=== PATIENT | female | born 1980 | race Two or more races ===

== ENCOUNTER 2017-12-25 11:56 | Emergency (ER) | payer SELFPAY ==
[~2017-12-25] VITALS: Ht 160 cm; Wt 71.2 kg
[2017-12-25] MEDS ORDERED: SODIUM CHLORIDE 0.9% 1000ML 1,000 ML IV STA (12:29)
[2017-12-25] MEDS ORDERED: DIATRIZOATE MEGL/DIATRIZOA SOD 30 ML BTL PO ONE (12:41)
[2017-12-25 13:05] LABS: BASOPHILS % 0.1 % (0.0-1.0); EOSINOPHILS % 0.1 % (0.0-6.0); HEMATOCRIT 33.5 % (34.2-44.1); HEMOGLOBIN 11.5 g/dL (12.0-16.0); LYMPHOCYTES # (AUTO) 1.4 (1.0-3.2); LYMPHOCYTES % 18.6 % (18.0-39.1); MEAN CORPUSCULAR HEMOGLOBIN 30.3 pg (28-32); MEAN CORPUSCULAR HGB CONC 34.3 g/dL (31-35); MEAN CORPUSCULAR VOLUME 88.4 fL (81-99); MONOCYTES # (AUTO) 0.5 (0.2-0.8); MONOCYTES % 6.6 % (4.4-11.3); NEUTROPHILS # (AUTO) 5.4 (2.1-6.9); NEUTROPHILS % 74.2 % (38.7-80.0); PLATELET COUNT 204 x10e3/uL (140-360); RED BLOOD COUNT 3.79 x10e6/uL (3.6-5.1); RED CELL DISTRIBUTION WIDTH 12.2 % (11.7-14.4)
[2017-12-25 13:15] LABS: INR 1.13; PROTHROMBIN TIME 13.6 seconds (11.9-14.5)
[2017-12-25 13:16] LABS: PARTIAL THROMBOPLASTIN TIME 29.9 seconds (23.8-35.5)
[2017-12-25 13:29] LABS: ALANINE AMINOTRANSFERASE 21 IU/L (0-55); ALBUMIN 3.2 g/dL (3.5-5.0); ALBUMIN/GLOBULIN RATIO 0.7 (0.8-2.0); ALKALINE PHOSPHATASE 68 IU/L (40-150); AMYLASE 40 U/L (25-125); ANION GAP 12.5 mmol/L (8-16); BLOOD UREA NITROGEN 7 mg/dL (7-26); BUN/CREATININE RATIO 9 (6-25); CALCIUM 9.1 mg/dL (8.4-10.2); CARBON DIOXIDE 25 mmol/L (22-29); CHLORIDE 103 mmol/L (98-107); EST GLOMERULAR FILTRATION RATE > 60 ML/MIN (60-); GLUCOSE 110 mg/dL (74-118); LIPASE 14 U/L (8-78); POTASSIUM 3.5 mmol/L (3.5-5.1); SODIUM 137 mmol/L (136-145)
[2017-12-25 13:52] LABS: BILIRUBIN,URINE NEGATIVE (NEGATIVE); CLARITY,URINE CLEAR (CLEAR); COLOR,URINE YELLOW (YELLOW); KETONES,URINE TRACE (NEGATIVE); LEUKOCYTE ESTERASE ,URINE NEGATIVE (NEGATIVE); NITRITE,URINE NEGATIVE (NEGATIVE); PROTEIN,URINE DIPSTICK NEGATIVE (NEGATIVE); URINE UROBILINOGEN 0.2 mg/dL (0.2 - 1)
[2017-12-25 14:04] LABS: EPITHELIAL CELLS,URINE RARE /LPF; RBC,URINE 0-5 /HPF (0-5); WBC,URINE (MAN) 0-5 /HPF (0-5)
[2017-12-25] MEDS ORDERED: SODIUM CHLORIDE 0.9% 50ML 50 ML ONE (14:38)
[2017-12-25] MEDS ORDERED: IOPAMIDOL 370 MG/ML 200 ML INFUS..BTL INJ ONE (14:38)
--- NOTE | 2017-12-25 15:02 | Diagnostic Imaging Report ---
This report includes an Addendum and supersedes previous reports for this exam. PROCEDURE: CT ABDOMEN AND PELVIS WITH CONTRAST TECHNIQUE: The abdomen and pelvis were scanned utilizing a multidetector helical scanner from the diaphragm to the lesser trochanter after the IV administration of 100 cc of Isovue 370 and the oral administration of 900 mL of Gastroview. Coronal and sagittal multiplanar reformations were obtained. COMPARISON: None. INDICATIONS: ABDOMEN PAIN FINDINGS: LOWER THORAX: Normal. HEPATOBILIARY: No focal hepatic lesions. No biliary ductal dilatation. The gallbladder is absent. SPLEEN: No splenomegaly. PANCREAS: There is fatty atrophy of the pancreatic head and uncinate process. The distal pancreatic body and tail appear unremarkable. ADRENALS: No adrenal nodules. KIDNEYS/URETERS: No hydronephrosis, stones, or solid mass lesions. PELVIC ORGANS/BLADDER: Metallic densities in the region of the cervix likely represent fiducial markers. A focal calcification in the uterine fundus may be related to small degenerating fibroid. Mild circumferential wall thickening of the bladder. PERITONEUM / RETROPERITONEUM: No free air or fluid. Mild peritoneal thickening in the low abdomen. LYMPH NODES: No lymphadenopathy. VESSELS: Unremarkable. GI TRACT: There is mild wall thickening of the distal sigmoid colon and rectum. Mild wall thickening is also seen in several loops of distal ileum. There is associated edema of the small bowel mesentery. A small amount of fluid is seen in the mesentery. There are a few scattered sigmoid diverticula. No evidence of bowel obstruction. The appendix is not clearly visualized. BONES AND SOFT TISSUES: Osteopenia in the sacral vertebral bodies is likely related to radiation change. IMPRESSION: Bowel wall thickening of the distal sigmoid colon and rectum, as well as several loops of distal ileum. There is edema within the small bowel mesentery and reactive peritoneal thickening in the low abdomen. 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 Other possibilities, such as inflammatory bowel disease or infectious enteritis, are considered less likely. Diffuse circumferential bladder wall thickening, also likely related to radiation change. Dictated by: Froylan Ludwig M.D. on 12/25/2017 at 15:04 Electronically approved by: Froylan Ludwig M.D. on 12/25/2017 at 15:04 ADDENDUM: The appendix is diminutive and does not appear to be the source of the inflammatory process. Dictated by: Froylan Ludwig M.D. on 12/25/2017 at 15:26 Electronically approved by: Froylan Ludwig M.D. on 12/25/2017 at 15:26
[2017-12-25 15:46] VITALS: BP 109/73
== END 2017-12-25 15:55 | disposition home or self-care (01) ==
LOC: ER 11:56
CPT/HCPCS: 36415; 74177; 80053; 81001; 82150; 83690; 84702; 85025; 85610; 85730; 99284; J7030; Q9967

== ENCOUNTER → 2018-08-09 | Emergency (ER) | payer MEDICARE ==
--- OUTSIDE RECORDS SUMMARY | 2018-08-09 16:55 | XMS REPORT | Clinical Summary ---
Author Author [facility] Organization [facility] Address Unknown Phone Unavailable Care Team Providers Care Associate Professor Of Art History Name Role Phone Rody Hairston MD PCP Allergies No Known Allergies Medications End Date Status Medication Sig Dispensed Refills Start Date Active esomeprazole (NEXIUM) 40 Take 40 mg by 0 mg delayed release mouth as capsule needed. Active omeprazole (PRILOSEC) 20 Take 1 30 capsule 0 mg delayed release capsule by 5 capsuleIndications: mouth daily. Reflux Active ergocalciferol (VITAMIN Take 1 12 capsule 0 D2) 50,000 unit capsule by 8 capsuleIndications: mouth weekly. Vitamin D deficiency Active conjugated estrogens Insert 0.5 g 30 g 12 (PREMARIN) 0.625 mg/gram vaginally 8 vaginal creamIndications: DAILY (21 Vaginal atrophy days on and 7 days off). 01/05/2018 ondansetron (ZOFRAN) 4 mg Take 1 tablet 20 tablet 0 tabletIndications: by mouth 8 Malignant neoplasm of every 8 hours cervix, unspecified site, as needed for Abdominal pain, up to 7 days generalized for Nausea. 04/05/2018 metroNIDAZOLE (FLAGYL) Take 1 tablet 20 tablet 0 500 mg tabletIndications: by mouth 2 8 Lower abdominal pain times daily for 10 days. 04/05/2018 ciprofloxacin HCl (CIPRO) Take 1 tablet 20 tablet 0 500 mg tabletIndications: by mouth 2 8 Lower abdominal pain times daily for 10 days. 04/24/2018 Discontinued ibuprofen (MOTRIN) 800 mg Take 1 tablet 30 tablet 0 tabletIndications: Lower by mouth 8 abdominal pain every 8 hours as needed for Pain Take with food. 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 - squamous cell carcinoma in situ cannot rule out invasion - 12/20/11 Biopsies taken 01/15/12 and patient to be seen 01/17/12 at [facility] by and for chemoradiation- Cancer of cervix 01/15/2012 Encounters Care Team Description Date Type Specialty Cameron Perea MD Abdominal pain, generalized (Primary Dx) 04/24/2018 Office Visit Family Practice Kay Umanzor NP Parathyroid abnormality (Primary Dx) 04/24/2018 Orders Only Oncology Kay Umanzor NP Results 04/24/2018 Telephone Oncology Claudio Parry MD Thyroid nodule (Primary Dx) 04/24/2018 E-Consult Endocrinology Meenu Zaragoza RN 04/24/2018 Clinical Case Social Work Mgt Alessandra Rodriguez NP Thyroid nodule (Primary Dx) 04/17/2018 Orders Only Oncology Mary Saleh MD 04/10/2018 Hospital Radiology Encounter Rody Hairston MD 04/10/2018 Hospital Lab Encounter Cierra Mcguire MD Lower abdominal pain (Primary Dx) 03/26/2018 Same Day [facility] Alessandra Rodriguez NP Thyroid nodule (Primary Dx) 03/26/2018 Orders Only Oncology Claudio Parry MD 03/20/2018 E-Consult Endocrinology Mary Saleh MD Malignant neoplasm of cervix, unspecified site (Primary Dx); Vaginal atrophy 03/17/2018 Office Visit Oncology Alessandra Rodriguez, Medical Student Follow-up 03/17/2018 Telephone Oncology Elin Carias NP Well woman exam (Primary Dx); Hx of cervical cancer 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 Malignant neoplasm of cervix, unspecified site; Fatigue, unspecified type 01/23/2018 Ancillary Radiology Procedure Rody Hairston MD Hospital discharge follow-up (Primary Dx); Malignant neoplasm of cervix, unspecified site; Fatigue, unspecified type; Abdominal pain, generalized; Need for vaccination 12/29/2017 Office Visit Family Practice Niesha Price, KENDY Can Not Get Appointment 12/25/2017 Telephone Iveth Cheng RN 12/25/2017 Nurse Triage Rody Hairston MD Vitamin D deficiency (Primary Dx) 12/24/2017 Orders Only Family Practice Rody Hairston MD Thyroid disorder; Fatigue, unspecified type; Preventative health care 12/22/2017 Lab Appointment Lab Rody Hairston MD Fatigue, unspecified type (Primary Dx); Malignant neoplasm of cervix, unspecified site; Preventative health care; Thyroid disorder 12/18/2017 Office Visit Family Practice after 08/08/2017 Immunizations Name Dates Previously Given Next Due TDap (Tetanus Toxoid, 12/29/2017 (Deferred: Patient already had this Reduced Diphtheria Toxoid immunization - Patient to immunization record) And Acellular Pertussis, Absorbed) Family History Medical History Relation Name Comments Breast cancer Maternal Aunt Diabetes Mother Relation Name Status Comments Maternal Aunt Mother Social History Date Tobacco Use Types Packs/Day Years Used Former Smoker 0.3 5 Smokeless Tobacco: Former User Tobacco Cessation: Counseling Given: No Alcohol Use Drinks/Week oz/Week Comments No Sex Assigned at Date Recorded Not on file Industry Job Start Date Occupation Not on file Not on file Not on file Travel End Travel History Travel Start No recent travel history available. Last Filed Vital Signs Time Taken Vital Sign Reading 04/24/2018 8:44 AM CDT Blood Pressure 103/69 04/24/2018 8:44 AM CDT Pulse 62 04/24/2018 8:44 AM CDT Temperature 36.6 C (97.8 F) 04/24/2018 8:44 AM CDT Respiratory Rate 18 03/26/2018 3:44 PM CDT Oxygen Saturation 100% - Inhaled Oxygen - Concentration 04/24/2018 8:44 AM CDT Weight 70.5 kg (155 lb 6.4 oz) 04/24/2018 8:44 AM CDT Height 162 cm (5' 3.78") 04/24/2018 8:44 AM CDT Body Mass Index 26.86 Plan of Treatment Care Team Description Date Type Specialty Ref #: [id number] 09/16/2018 Office Visit Gastroenterology THYROID/NECK 09/21/2018 Ancillary Radiology Procedure Mary Saleh MD [address] [facility] [address] [place] [address] 6 mo fu w US results 10/20/2018 Office Visit Oncology Health Maintenance Due Date Last Done Comments IMM Influenza Seasonal 05/25/2018 Oct to October (>/=19 yrs) Cervical Cancer Scrn (3 02/10/2021 02/10/2018 Yrs) Procedures Comments Procedure Name Priority Date/Time Associated Diagnosis INTACT PTH Routine 04/28/2018 Parathyroid abnormality 9:03 AM CDT CALCIUM Routine 04/28/2018 Parathyroid abnormality 9:03 AM CDT U/S THYROID/NECK Routine 04/10/2018 Malignant neoplasm of 5:43 PM CDT cervix, unspecified site TOTAL T3 Routine 04/10/2018 Thyroid nodule 3:30 PM CDT FREE T4 Routine 04/10/2018 Thyroid nodule 3:30 PM CDT TSH Routine 04/10/2018 Thyroid nodule 3:30 PM CDT HPV HIGH-RISK Routine 02/10/2018 Well woman exam 2:47 PM CDT [facility] CYTOLOGY Routine 02/10/2018 12:00 AM CDT TUMORIMAGE PET/CT SKUL-T Routine 01/23/2018 Malignant neoplasm of 11:02 AM CDT cervix, unspecified site Fatigue, unspecified type GLUCOSE POC Routine 01/23/2018 9:20 AM CDT THYROID PEROXIDASE (TPO) Routine 12/22/2017 AB 10:43 AM CDT ANTITHYROGLOBULIN AB Routine 12/22/2017 10:43 AM CDT LIPID PROFILE Routine 12/22/2017 Preventative health care 10:43 AM CDT LIVER PROFILE Routine 12/22/2017 Preventative health care 10:43 AM CDT HEMOGLOBIN A1C Routine 12/22/2017 Preventative health care 10:43 AM CDT BASIC METABOLIC PANEL Routine 12/22/2017 Fatigue, unspecified type 10:43 AM CDT CBC/DIFF Routine 12/22/2017 Fatigue, unspecified type 10:43 AM CDT TSH Routine 12/22/2017 Fatigue, unspecified type 10:43 AM CDT Thyroid disorder VIT D, 25-HYDROXY Routine 12/22/2017 Fatigue, unspecified type 10:43 AM CDT FREE T4 Routine 12/22/2017 Thyroid disorder 10:43 AM CDT after 08/08/2017 Results * INTACT PTH (04/28/2018 9:03 AM CDT) Intact PTH 56.50 8.7 - 77.1 pg/mL BT MAIN-STATION 4 Specimen Blood Performing Organization Address City/State[facility] Number MISYS BT MAIN-STATION 4 * CALCIUM (04/28/2018 9:03 AM CDT) Calcium 10.1 8.6 - 10.3 mg/dL BT MAIN-STATION 1 Specimen Blood Performing Organization Address City/[facility] Phone Number MISYS BT MAIN-STATION 1 * U/S THYROID/NECK (04/10/2018 5:43 PM CDT) Addenda Addendum by aYzan Moncada MD on 04/13/2018 8:42 AM *Left thyroid nodule does not meet criteria for follow-up or FNA. However, this nodule likely corresponds toFDG avid nodule seen on prior PET/CT, consider follow-up in 6-12 months to document stability. Alternatively, FNA may be considered in light of FDG activity and history of cervical cancer. *Probable right parathyroid adenoma. Correlation with calcium and PTH levels to determine the need for scintigraphic imaging. Signed By: Yazan Moncada MD, 04/13/2018 8:42 AM Impressions Performed At IMPRESSION: [facility] *Left thyroid nodule does not meet criteria for follow-up or FNA. However, this nodule likely corresponds toFDG avid nodule seen on prior PET/CT, consider follow-up in 6-12 months to document stability. *Probable right parathyroid adenoma. Correlation with calcium and PTH levels to determine the need for scintigraphic imaging. REFERENCE: Sakshi FN, Kalani WD, Zeke EG, et al. ACR Thyroid Imaging, Reporting and Data System (TI-RADS): White Paper of the ACR TI-RADS Committee. J Am Katey Radiol. 2017; 14(5): 587?595. Signed By: Yazan Moncada MD, 04/10/2018 6:01 PM Narrative Performed At EXAM: US THYROID SMS DATE: 04/10/2018 5:43 PM INDICATION:incidental findings on pet scan ADDITIONAL INFORMATION: None. COMPARISON: PET/CT 01/23/2018 TECHNIQUE: Multiplanar grayscale and color Doppler ultrasound of the neck were obtained in the area of the thyroid. FINDINGS: Thyroid parenchyma: Mostly homogeneous. Right thyroid size: 4.4 x 1.3 x 1.5 Cm Left thyroid size: 4.5 x 1.1 x 1.7 cm Isthmus thickness: 0.3 cm Thyroid nodules: Identified. Nodule 1: Location: Left inferior pole Size: 0.7 x 1.3 x 0.6 cm Composition: Solid or almost completely solid (2 points). Echogenicity: Isoechoic (1 point). Shape: Wider than tall (0 points). Margins: Smooth (0 points). Echogenic foci: Absent (0 points). Other: None. ACR TI-RADS Score: TR3 - Mildly suspicious (total 3 points). -- ACR recommendation:=2.5 cm FNA;=1.5 cm f/u in 1, 3, and 5 years; <1.5 cm no f/u or FNA. Recommendations: No further follow-up required. These nodularity corresponds to the FDG avid nodules seen on the prior PET/CT. A hypoechoic structure posterior to the right mid border of the thyroid gland measuring 0.6 x 0.3 x 0.4 cm may represent a parathyroid adenoma. Cervical lymph nodes: Normal. Procedure Note Interface, Rad/Mammog In - 04/10/2018 6:06 PM CDT EXAM: US THYROID DATE: 04/10/2018 5:43 PM INDICATION: incidental findings on pet scan ADDITIONAL INFORMATION: None. COMPARISON: PET/CT 01/23/2018 TECHNIQUE: Multiplanar grayscale and color Doppler ultrasound of the neck were obtained in the area of the thyroid. FINDINGS: Thyroid parenchyma: Mostly homogeneous. Right thyroid size: 4.4 x 1.3 x 1.5 Cm Left thyroid size: 4.5 x 1.1 x 1.7 cm Isthmus thickness: 0.3 cm Thyroid nodules: Identified. Nodule 1: Location: Left inferior pole Size: 0.7 x 1.3 x 0.6 cm Composition: Solid or almost completely solid (2 points). Echogenicity: Isoechoic (1 point). Shape: Wider than tall (0 points). Margins: Smooth (0 points). Echogenic foci: Absent (0 points). Other: None. ACR TI-RADS Score: TR3 - Mildly suspicious (total 3 points). -- ACR recommendation:=2.5 cm FNA;=1.5 cm f/u in 1, 3, and 5 years; <1.5 cm no f/u or FNA. Recommendations: No further follow-up required. These nodularity corresponds to the FDG avid nodules seen on the prior PET/CT. A hypoechoic structure posterior to the right mid border of the thyroid gland measuring 0.6 x 0.3 x 0.4 cm may represent a parathyroid adenoma. Cervical lymph nodes: Normal. IMPRESSION IMPRESSION: * Left thyroid nodule does not meet criteria for follow-up or FNA. However, this nodule likely corresponds to FDG avid nodule seen on prior PET/CT, consider follow-up in 6-12 months to document stability. * Probable right parathyroid adenoma. Correlation with calcium and PTH levels to determine the need for scintigraphic imaging. REFERENCE: Sakshi FN, Kalani WD, Zeke EG, et al. ACR Thyroid Imaging, Reporting and Data System (TI-RADS): White Paper of the ACR TI-RADS Committee. J Am Katey Radiol. 2017; 14(5): 587?[phone]. Signed By: Yazan Moncada MD, 04/10/2018 6:01 PM Performing Organization Address City/State/Zipcode Phone Number SMS * TSH (04/10/2018 3:30 PM CDT) Only the most recent of 2 results within the time period is included. TSH 1.42 0.57 - 3.74 uIU/mL BT MAIN-STATION 1 Specimen Blood Performing Organization Address [facility] Phone Number [facility] * TOTAL T3 (04/10/2018 3:30 PM CDT) Total T3 117 87 - 178 ng/dL BT MAIN-STATION 1 Specimen Blood Performing Organization Address [facility] Phone Number [facility] * FREE T4 (04/10/2018 3:30 PM CDT) Only the most recent of 2 results within the time period is included. Free T4 0.90 0.61 - 1.18 ng/dl BT MAIN-STATION Comment: 1 females: 1st Trimester-0.52-1.10 ng/dL 2nd Trimester=0.45-0.99 ng/dL 3rd Trimester=0.48-0.95 ng/dL Specimen Blood Performing Organization Address [facility] Phone Number [facility] * HPV HIGH-RISK (02/10/2018 2:47 PM CDT) HPV High Risk Negative NEG BT DIAGNOSTIC Comment: IMMUNOLOGY The APTIMA HPV Assay is an in vitro nucleic acid amplification test for the qualitative detection of E6/E7 viral messenger RNA (mRNA) from 14 high-risk types of human papillomavirus (HPV) in cervical specimens. The high-risk HPV types detected by the assay include: 16,18,31,33,35,39,45,51,52,56, 58,59,66, and 68. CoPath Spec [id number] BT MOLECULAR Number PATHOLOGY Performing Organization Address [facility] Phone Number [facility] IMMUNOLOGY MOLECULAR PATHOLOGY * [facility] CYTOLOGY (02/10/2018 12:00 AM CDT) [facility] Cytology (note) MISYS Name LYNDSAY SANTILLAN Date of 1980 Hospital Number [id number] Location [facility] (OP) CYTOPATHOLOGY Collected:02/10/2018 00:00 Received: 02/11/2018 10:05 FINAL DIAGNOSIS Cervicovaginal (liquid-based preparation): Satisfactory for evaluation Scant cellularity Negative for intraepithelial lesion or malignancy Reactive cellular changes associated with inflammation includes typical repair Electronically Signed Out Trell Loera./[id number] Staff Pathologist Clinical History Date of Last Menstrual Period: 2011 (Chemo/Rad) Menstrual History: Pregnancies: A0 Contraceptive History: Depo-Provera Bilateral Tubal Ligation: 2006 Cancer History: Cervical/Gynocological: Cervical 2011 Treatment History: Chemotherapy: 2011 Radiation: 2011 Other Clinical Conditions: Abnormal PAP Smear Specimen Received: One ThinPrep Vial Educational Note: The pap smear/test is a screening test for cervical cancer.As with screening procedures, both false negative and false positive results may occur.Hence, the results should be interpreted in the context of patient's history and current clinical information. The slide has been analyzed by the automated ThinPrep Imaging System, [employer], [place], [place]. Performing Organization Address City/State/Zipcode Phone Number MISYS * TUMORIMAGE PET/CT SKUL- (01/23/2018 11:02 AM CDT) Impressions Performed At IMPRESSION: SMS 1.No evidence of locally recurrent or metastatic cervical cancer. 2.Mildly hypermetabolic left thyroid nodule may be correlated with thyroid ultrasound. 3.Additional incidental findings, as above. Signed By: Josh Haywood M.D., 01/23/2018 11:14 AM Narrative Performed At EXAMINATION: PET/CT with F-18 FDG [facility] CPT code:30465 (tumor imaging, skull base to thighs with additional thin cuts of head and neck) INDICATION:Assess response to treatment for subsequent treatment strategy ADDITIONALCLINICAL HISTORY: ?37y.o.?F who has a past medical history of cervical cancer. She was recently seen in the ER at [facility] for fever and lower abdominal pain and fever. COMPARISON STUDIES: CT 09/20/2014 STUDY DATE01/23/2018 8:53 AM SERUM GLUCOSE LEVEL: 108 mg/dL RADIOPHARMACEUTICAL: F-18 FDG 10.28 mCi IV right antecubital UPTAKE TIME: 51 minutes Exclusion of for women <50 yrs of age: Yes TECHNIQUE: The study was performed using in-line PET/CT from the skull base to the mid-thigh.Cross-sectional and 3D (MIP) images of the PET data and cross-sectional images of the CT data were generated with co-registration of the 2 image data sets.The PET images are displayed with and without attenuation correction.CT imaging was employed for attenuation correction and anatomic localization of PET scan abnormalities.A diagnostic CT with contrast was not performed. FINDINGS: Head and neck: No abnormal FDG activity within the visualized brain, orbits, paranasal sinuses, and pharyngeal soft tissues. Mildly hypermetabolic left thyroid nodule with SUV max 3.1 (image 61). No FDG-avid cervical lymph nodes. Chest: No FDG-avid pulmonary nodules or airspace opacities.No FDG-avid mediastinal, hilar or axillary lymph nodes. Abdomen: No abnormal FDG activity within the liver, gallbladder, spleen, pancreas, kidneys, adrenals, and bowel. No FDG-avid mesenteric or retroperitoneal lymph nodes. Pelvis: No abnormal FDG activity within the pelvis. No FDG-avid pelvic or inguinal lymph nodes. Skeleton: No FDG-avid skeletal lesions. Incidental CT findings: *Small left thyroid nodule. *Tiny hiatal hernia. *Prior cholecystectomy. *Brachytherapy seeds are present in the cervix. *Mild circumferential bladder wall thickening may be due to underdistention. *Tiny fat-containing umbilical hernia. Procedure Note Interface, Rad/Mammog In - 01/23/2018 11:20 AM CDT EXAMINATION: PET/CT with F-18 FDG CPT code: 70691 (tumor imaging, skull base to thighs with additional thin cuts of head and neck) INDICATION: Assess response to treatment for subsequent treatment strategy ADDITIONAL CLINICAL HISTORY: ?37y.o.?F who has a past medical history of cervical cancer. She was recently seen in the ER at [facility] for fever and lower abdominal pain and fever. COMPARISON STUDIES: CT 09/20/2014 STUDY DATE 01/23/2018 8:53 AM SERUM GLUCOSE LEVEL: 108 mg/dL RADIOPHARMACEUTICAL: F-18 FDG 10.28 mCi IV right antecubital UPTAKE TIME: 51 minutes Exclusion of for women <50 yrs of age: Yes TECHNIQUE: The study was performed using in-line PET/CT from the skull base to the mid-thigh. Cross-sectional and 3D (MIP) images of the PET data and cross-sectional images of the CT data were generated with co-registration of the 2 image data sets. The PET images are displayed with and without attenuation correction. CT imaging was employed for attenuation correction and anatomic localization of PET scan abnormalities. A diagnostic CT with contrast was not performed. FINDINGS: Head and neck: No abnormal FDG activity within the visualized brain, orbits, paranasal sinuses, and pharyngeal soft tissues. Mildly hypermetabolic left thyroid nodule with SUV max 3.1 (image 61). No FDG-avid cervical lymph nodes. Chest: No FDG-avid pulmonary nodules or airspace opacities. No FDG-avid mediastinal, hilar or axillary lymph nodes. Abdomen: No abnormal FDG activity within the liver, gallbladder, spleen, pancreas, kidneys, adrenals, and bowel. No FDG-avid mesenteric or retroperitoneal lymph nodes. Pelvis: No abnormal FDG activity within the pelvis. No FDG-avid pelvic or inguinal lymph nodes. Skeleton: No FDG-avid skeletal lesions. Incidental CT findings: * Small left thyroid nodule. * Tiny hiatal hernia. * Prior cholecystectomy. * Brachytherapy seeds are present in the cervix. * Mild circumferential bladder wall thickening may be due to underdistention. * Tiny fat-containing umbilical hernia. IMPRESSION IMPRESSION: 1. No evidence of locally recurrent or metastatic cervical cancer. 2. Mildly hypermetabolic left thyroid nodule may be correlated with thyroid ultrasound. 3. Additional incidental findings, as above. Signed By: Josh Haywood M.D., 01/23/2018 11:14 AM Performing Organization Address [facility] Phone Number SMS * GLUCOSE POC (01/23/2018 9:20 AM CDT) Glucose POC 108 (H) 74 - 106 mg/dL [facility] 1 Performing Organization Address [facility] Phone Number MISYS [facility] 1 * VIT D, 25-HYDROXY (12/22/2017 10:43 AM CDT) Vit D, 21.6 (L) 30 - 100 ng/mL BT DIAGNOSTIC 25-Hydroxy Comment: IMMUNOLOGY Vitamin D deficiency has been defined by the [place] of Medicine and Endocrine Society guideline as a level of serum 25-OH Vitamin D less than 20 ng/mL. The Endocrine Society further defines Vitamin D insufficiency as a level between 21 and 29 ng/mL and sufficiency as a level between 30 and 100 ng/mL. Performing Organization Address [facility] Phone Number MISYS BT DIAGNOSTIC IMMUNOLOGY * THYROID PEROXIDASE (TPO) AB (12/22/2017 10:43 AM CDT) Thy Perox (TPO) 16 LABORATORY Ab Reference range: 0 to 34 [employer] Unit: IU/mL [place] Performing Organization Address City/State/[facility] Phone Number [email or web address] [address] [place] [address] [place] 145 * ANTITHYROGLOBULIN AB (12/22/2017 10:43 AM CDT) Thyroglobulin <1.0 LABORATORY Ab Reference range: 0.0 to 0.9 [employer] Unit: IU/mL [place] (note) Thyroglobulin Antibody measured by Nabil [employer]ats[employer] Methodology Performing Organization Address [facility] Phone Number [email or web address] [address] [place] [address] [place] 145 * HEMOGLOBIN A1C (12/22/2017 10:43 AM CDT) Pathologist [facility] Hemoglobin A1c 5.5 4.3 - 6.1 % BT DIAGNOSTIC IMMUNOLOGY Est Average 111.2 mg/dL BT DIAGNOSTIC Gluc IMMUNOLOGY Specimen Blood Performing Organization Address [facility] Phone Number [employer] BT DIAGNOSTIC IMMUNOLOGY * LIVER PROFILE (12/22/2017 10:43 AM CDT) Pathologist [facility] T Protein 8.6 (H) 6.0 - 8.3 g/dL BT MAIN-STATION 3 Albumin 4.3 3.7 - 5.3 g/dL BT MAIN-STATION 3 T Bilirubin 0.7 0.2 - 1.2 mg/dL BT MAIN-STATION 3 Alk Phos 68 34 - 104 U/L BT MAIN-STATION 3 AST 11 (L) 13 - 39 U/L BT MAIN-STATION 3 ALT 10 7 - 52 U/L BT MAIN-STATION 3 D Bilirubin 0.2 0.0 - 0.2 mg/dL BT MAIN-STATION 3 Specimen Blood Performing Organization Address [facility] Phone Number MISYS BT MAIN-STATION 3 * LIPID PROFILE (12/22/2017 10:43 AM CDT) Cholesterol 153 mg/dL BT MAIN-STATION Comment: 3 REFERENCE RANGE: Desirable: <200 mg/dL Borderline: 200-240 mg/dL High Risk: >240 mg/dL Triglyceride 52 <150 mg/dL BT MAIN-STATION Comment: 3 REFERENCE RANGE: Normal: <150 mg/dL Borderline High: 150-199 mg/dL High: 200-499 mg/dL Very High: >dt=100 mg/dL HDL 54 mg/dL BT MAIN-STATION Comment: 3 Increased CHD risk: <40 mg/dL Decreased CHD risk: >60 mg/dL LDL 89 mg/dL BT MAIN-STATION Comment: 3 REFERENCE RANGE: Optimal: <100 mg/dL Near Optimal: 100-129 mg/dL Borderline High: 130-159 mg/dL High: 160-189 mg/dL Very High: >ob=448 mg/dL Specimen Blood Performing Organization Address City/State/Zipcode Phone Number MISYS BT MAIN-STATION 3 * CBC/DIFF (12/22/2017 10:43 AM CDT) WBC 5.2 4.5 - 11.0 K/uL BT MAIN-STATION 2 RBC 4.20 4.20 - 5.40 M/uL BT MAIN-STATION 2 Hemoglobin 12.8 12.0 - 16.0 g/dL BT MAIN-STATION 2 Hematocrit 38.8 37.0 - 47.0 % BT MAIN-STATION 2 MCV 92 82 - 92 fL BT MAIN-STATION 2 MCH 30.5 27.0 - 32.0 pg BT MAIN-STATION 2 MCHC 33.0 32.0 - 36.0 g/dL BT MAIN-STATION 2 RDW 42.4 36.4 - 46.3 fL BT [facility] 2 Platelet 288 150 - 400 K/uL BT [facility] 2 Mean Platelet 9.5 9.4 - 12.4 fL [facility] Volume 2 Percent NRBC 0.0 BT [facility] 2 Absolute NRBC 0.00 BT [facility] 2 Neutrophil 53.1 34.0 - 70.0 % BT [facility] 2 Lymphocyte 37.4 20.0 - 50.0 % BT [facility] 2 Monocyte 6.6 5.0 - 12.0 % BT [facility] 2 Eosinophil 2.1 0.7 - 5.0 % BT [facility] 2 Basophil 0.6 0.1 - 1.2 % BT [facility] 2 Pct Immat Gran 0.2 0.0 - 0.5 BT [facility] 2 Neutrophil, Abs 2.74 1.56 - 6.13 K/uL BT [facility] 2 Lymphocyte, Abs 1.93 1.18 - 3.74 K/uL BT [facility] 2 Monocyte, Abs 0.34 0.24 - 0.36 K/uL BT [facility] 2 Eosinophil, Abs 0.11 0.04 - 0.36 K/uL BT [facility] 2 Basophil, Abs 0.03 0.01 - 0.08 K/uL BT [facility] 2 Absol Immat 0.01 0.00 - 0.03 K/uL [facility] Gran 2 Specimen Blood Performing Organization Address City/State/[facility] Number MISYS [facility] 2 * BASIC METABOLIC PANEL (12/22/2017 10:43 AM CDT) [facility] CO2 27 21 - 31 mmol/L BT [facility] 3 Chloride 104 98 - 107 mmol/L BT [facility] 3 Potassium 3.8 3.5 - 5.1 mmol/L BT [facility] 3 Sodium 141 136 - 145 mmol/L BT [facility] 3 Glucose 93 70 - 110 mg/dL BT [facility] 3 Urea Nitrogen 17 7 - 25 mg/dL BT [facility] 3 Creatinine 0.70 0.6 - 1.2 mg/dL BT [facility] 3 Anion Gap 10 BT [facility] 3 Calcium 9.0 8.6 - 10.3 mg/dL BT [facility] 3 GFR, Estimated >60 mL/min/1.73 m2 BT [facility] 3 GFR, Estim, >60 mL/min/1.73 m2 BT [facility] Afr-Am 3 Specimen Blood Performing Organization Address City/[facility]ode Phone Number MISYS BT [facility] 3 after 08/08/2017 Insurance Type Payer Benefit Subscriber ID Effective Phone Address Plan / Dates Group [facility] xxxxxx 2017- [phone] [address] [facility] [id number] [place], [place] [address] [facility] PL[facility] xxxxxx 2017- [phone] [id number] [place] [address]
--- OUTSIDE RECORDS SUMMARY | 2018-08-09 16:56 | XMS REPORT | Continuity of Care Document ---
Author Author [facility] Interface Address Unknown Phone Unavailable Problems Problem Status Onset Date Classification Date Reported Comments Source Left leg pain Active 09/07/2014 Problem 06/25/2018 [facility] Reflux Active 09/07/2014 Problem 06/25/2018 [facility] Elevated BUN Active 09/07/2014 Problem 06/25/2018 [facility] Lower extremity edema Active 03/09/2014 Problem 06/25/2018 [facility] BLOOD IN STOOL Active 11/23/2012 [facility] BILIARY COLIC Active 10/11/2012 [facility] ABDOMINAL PAIN Active 10/11/2012 [facility] Other abnormal Papanicolaou smear of cervix and cervical HPV Active 01/15/2012 Problem 06/25/2018 [facility] Cancer of cervix Active 01/15/2012 Problem 06/25/2018 [facility] Cancer Resolved Problem 11/25/2012 [facility] Cholecystectomy Active Problem 11/25/2012 [facility] CHOLELITHIASIS NOS Active [facility] Medications Medication Details Route Status Patient Instructions Ordering Provider Order Date Source Metronidazole 500 Mg Tablet Flagyl 500 Mg Tablet Take 1 tablet by mouth 2 times daily for 10 days. Oral No Longer Active 03/26/2018 [facility] Ciprofloxacin 500 Mg Tablet Cipro 500 Mg Tablet Take 1 tablet by mouth 2 times daily for 10 days. Oral No Longer Active 03/26/2018 [facility] Ibuprofen 800 Mg Tablet Take 1 tablet by mouth every 8 hours as needed for Pain Take with food. Oral No Longer Active 03/26/2018 [facility] Premarin 0.625 Mg/Gram Vaginal Cream Insert 0.5 g vaginally DAILY (21 days on and 7 days off). Vaginal Active 03/17/2018 [facility] Ondansetron Hcl 4 Mg Tablet Zofran 4 Mg Tablet Take 1 tablet by mouth every 8 hours as needed for up to 7 days for Nausea. Oral No Longer Active 12/29/2017 [facility] Ergocalciferol (Vitamin D2) 50,000 Unit Capsule Vitamin D2 50,000 Unit Capsule Take 1 capsule by mouth weekly. Oral Active 12/24/2017 [facility] Omeprazole 20 Mg Capsule,Delayed Release Prilosec 20 Mg Capsule,Delayed Release Take 1 capsule by mouth daily. Oral Active 09/07/2014 [facility] Protonix 40 mg oral enteric coated tablet 40 mg, 1 tab, PO, Daily, 30 tab, Substitution Allowed, ECTAB PO Active [facility] 11/23/2012 [facility] Pepcid 20 mg oral tablet 20 mg, 1 tab, PO, BID, 60 tab, Substitution Allowed PO Active [facility] 11/23/2012 [facility] Saline Flush 0.9% 5 ml, Route: IVP, Drug Form: INJ, Dosing Weight 63.636, kg, PRN, PRN Line Flush, Start date: 11/23/12 13:42:00, Duration: 30 day, Stop date: 12/23/12 13:41:00 IVP No Longer Active [facility] 11/23/2012 [facility] docusate sodium 100 mg oral capsule 100 mg, 1 cap, PO, BID, 60 cap, Substitution Allowed, CAP PO Active 10/13/2012 [facility] acetaminophen-hydrocodone 325 mg-5 mg oral tablet 2 tab, PO, Q6H, PRN, 30 tab, Pain Score 4-6, Substitution Allowed, Maintenance, TAB PO Active 10/13/2012 [facility] influenza virus vaccine, inactivated 0.5 mL, Route: IM, Drug Form: INJ, Daily, Start date: 10/13/12 9:00:00, Duration: 1 doses or times, Stop date: 10/13/12 9:00:00 IM No Longer Active [facility] 10/13/2012 [facility] Lovenox 40 mg, 0.4 mL, Route: SUB-Q, Drug form: INJ, [id number], Start date: 10/13/12 6:00:00, Duration: 30 day, Stop date: 11/11/12 6:00:00 SUB-Q No Longer Active 10/13/2012 [facility] docusate sodium 100 mg oral capsule 100 mg, 1 cap, Route: PO, Drug form: CAP, BID, Start date: 10/12/12 17:00:00, Duration: 30 day, Stop date: 11/11/12 9:00:00 PO No Longer Active 10/12/2012 [facility] Notify pharmacy when patient tolerates PO Notify pharmacy when patient tolerates PO, 1, Drug form: MISC, Route: MISCXENIA, 10/12/12 16:00:00, Duration: 30 day, Stop date: 11/11/12 8:00:00 MISC No Longer Active 10/12/2012 [facility] morphine Sulfate 4 mg, 2 mL, Route: IV, Drug form: INJ, Q2H, PRN Pain Score 6-10, Start date: 10/12/12 14:55:00, Duration: 30 day, Stop date: 11/11/12 14:54:00 IV No Longer Active 10/12/2012 [facility] morphine Sulfate 3 mg, 1.5 mL, Route: IV, Drug form: INJ, Q2H, PRN Pain Score 6-10, Start date: 10/12/12 14:54:00, Duration: 30 day, Stop date: 11/11/12 14:53:00 IV No Longer Active 10/12/2012 [facility] acetaminophen-hydrocodone 325 mg-5 mg oral tablet 2 tab, Route: PO, Drug Form: TAB, Q6H, PRN Pain Score 4-6, Start date: 10/12/12 14:52:00, Duration: 30 day, Stop date: 11/11/12 14:51:00 PO No Longer Active 10/12/2012 [facility] Sodium Chloride 0.9% IV 1,000 mL 1,000 mL, Rate: 120 ml/hr, Infuse over: 8.3 hr, Route: IV, kg, Total Volume: 1,000, Start date: 10/12/12 14:48:00, Duration: 30 day, Stop date: 11/11/12 14:47:00 IV No Longer Active 10/12/2012 [facility] Lactated Ringers IV 1,000 mL 1,000 mL, Rate: 40 ml/hr, Infuse over: 25 hr, Route: IV, kg, Total Volume: 1,000, Start date: 10/12/12 11:46:00, Duration: 1 doses or times, Stop date: 10/13/12 12:45:00 IV No Longer Active 10/12/2012 [facility] influenza virus vaccine, inactivated 0.5 mL, Route: IM, Drug Form: INJ, Start date: 10/12/12 9:00:00, Stop date: 10/12/12 9:00:00 IM No Longer Active [facility] 10/12/2012 [facility] morphine Sulfate 2 mg, 1 mL, Route: IVP, Drug form: INJ, Q2H, Dosing Weight 63.636, kg, PRN Pain Score 6-10, Start date: 10/12/12 2:10:00, Stop date: 11/11/12 2:09:00, Hold for respiratory rate of 8 or less IVP No Longer Active 10/12/2012 [facility] Sodium Chloride 0.9% IV 1,000 mL 1,000 mL, Rate: 125 ml/hr, Infuse over: 8 hr, Route: IV, kg, Total Volume: 1,000, Start date: 10/12/12 2:10:00, Duration: 30 day, Stop date: 11/11/12 2:09:00 IV No Longer Active 10/12/2012 [facility] Saline Flush 0.9% 5 ml, Route: IVP, Drug Form: INJ, Dosing Weight 63.636, kg, PRN, PRN Line Flush, Start date: 10/12/12 2:10:00, Duration: 30 day, Stop date: 11/11/12 3:09:00 IVP No Longer Active [facility] 10/12/2012 [facility] ondansetron 4 mg, 2 mL, Route: IVP, Drug form: INJ, Q4H, Dosing Weight 63.636, kg, PRN Nausea & Vomiting, Start date: 10/12/12 2:10:00, Stop date: 11/11/12 2:09:00 IVP No Longer Active 10/12/2012 [facility] Zofran 4 mg, Route: IVP, Drug form: INJ, ONCE, Dosing Weight 63.636, kg, Priority: STAT, Start date: 10/11/12 21:10:00, Stop date: 10/11/12 21:10:00 IVP No Longer Active [facility] 10/12/2012 [facility] NS (Bolus) IV 1,272.72 mL, Route: IV, Dosing Weight 63.636, kg, ONCE, STAT, Start date: 10/11/12 21:09:00, Duration: 1 doses or times, Stop date: 10/11/12 21:09:00 IV No Longer Active [facility] 10/12/2012 [facility] morphine Sulfate 4 mg, Route: IVP, Drug form: INJ, ONCE, Dosing Weight 63.636, kg, Priority: STAT, Start date: 10/11/12 21:09:00, Stop date: 10/11/12 21:09:00 IVP No Longer Active [facility] 10/12/2012 [facility] Nexium 40 Mg Capsule,Delayed Release Take 40 mg by mouth as needed. Oral Active [facility] Allergies, Adverse Reactions, Alerts Substance Category Reaction Severity Reaction type Status Date Reported Comments Source Immunizations Immunization Date Given Site Status Last Updated Comments Source TDap (Tetanus Toxoid, Reduced Diphtheria Toxoid And Acellular Pertussis, Absorbed) 12/29/2017 Not Given Deferred: Patient already had this immunization - Patient to immunization record [facility] influenza virus vaccine, inactivated 10/12/2012 completed Miguel [facility] Results Order Name Results Value Reference Range Date Interpretation Comments Source CALCIUM Calcium 10.1 mg/dL 8.6 - 10.3 04/28/2018 [facility] INTACT PTH Intact PTH 56.50 pg/mL 8.7 - 77.1 04/28/2018 [facility] TOTAL T3 Total T3 117 ng/dL 87 - 178 04/11/2018 [facility] FREE T4 Free T4 0.90 ng/dl 0.61 - 1.18 04/11/2018 females: 1st Trimester-0.52-1.10 ng/dL 2nd Trimester=0.45-0.99 ng/dL 3rd Trimester=0.48-0.95 ng/dL [facility] TSH TSH 1.42 0.57 - 3.74 04/11/2018 [facility] U/S THYROID/NECK <p styleCode="header">Addendum by Yazan Moncada MD on 04/13/2018 8:42 AM</p><p>*Left thyroid nodule does not meet criteria for follow-up or FNA.</p><p>However, this nodule likely corresponds toFDG avid nodule seen on</p><p>prior PET/CT, consider follow-up in 6-12 months to document stability.</p><p>Alternatively, FNA may be considered in light of FDG activity and</p><p>history of cervical cancer. </p><p>*Probable right parathyroid adenoma. Correlation with calcium and PTH</p><p>levels to determine the need for scintigraphic imaging. </p><p> </p><p>Signed By: Yazan Moncada MD, 04/13/2018 8:42 AM</p><p> </p> Addendum by Yazan Moncada MD on 04/13/2018 8:42 AM *Left [...] By: Yazan Moncada MD, 04/13/2018 8:42 AM 04/10/2018 [facility] THYROID/NECK <p>IMPRESSION:</p><p>*Left thyroid nodule does not meet criteria for follow-up or FNA.</p><p>However, this nodule likely corresponds toFDG avid nodule seen on</p><p>prior PET/CT, consider follow-up in 6-12 months to document stability.</p><p>*Probable right parathyroid adenoma. Correlation with calcium and PTH</p><p>levels to determine the need for scintigraphic imaging. </p><p> </p><p>REFERENCE:</p><p>Sakshi FN, Kalani WD, Zeke EG, et al. ACR Thyroid Imaging,</p><p>Reporting and Data System (TI-RADS): White Paper of the ACR TI-RADS</p><p>Committee. J Am Katey Radiol. 2017; 14(5): [phone].</p><p> </p><p>Signed By: Yazan Moncada MD, 04/10/2018 6:01 PM</p><p> </p> IMPRESSION: *Left thyroid nodule does not meet criteria [...] By: Yazan Moncada MD, 04/10/2018 6:01 PM 04/10/2018 [facility]/ THYROID/NECK <p>EXAM: US THYROID</p><p> </p><p>DATE: 04/10/2018 5:43 PM</p><p> </p><p>INDICATION:incidental findings on pet scan</p><p> </p><p>ADDITIONAL INFORMATION: None.</p><p> </p><p>COMPARISON: PET/CT 01/23/2018</p><p> </p><p>TECHNIQUE: Multiplanar grayscale and color Doppler ultrasound of the</p><p>neck were obtained in the area of the thyroid. </p><p> </p><p>FINDINGS:</p><p>Thyroid parenchyma: Mostly homogeneous.</p><p> </ p><p>Right thyroid size: 4.4 x 1.3 x 1.5 Cm</p><p> </p><p>Left thyroid size: 4.5 x 1.1 x 1.7 cm</p><p> </p><p>Isthmus thickness: 0.3 cm</p><p> </p><p>Thyroid nodules: Identified.</p><p> </p><p>Nodule 1:</p><p>Location: Left inferior pole</p><p>Size: 0.7 x 1.3 x 0.6 cm</p><p>Composition: Solid or almost completely solid (2 points).</p><p>Echogenicity: Isoechoic (1 point).</p><p>Shape: Wider than tall (0 points).</p><p>Margins: Smooth (0 points).</p><p>Echogenic foci: Absent (0 points).</p><p>Other: None.</p><p>ACR TI-RADS Score: TR3 - Mildly suspicious (total 3 points).</p><p>-- ACR recommendation:=2.5 cm FNA;=1.5 cm f/u in 1, 3, and 5 years;</p><p><1.5 cm no f/u or FNA.</p><p>Recommendations: No further follow-up required. These nodularity</p><p>corresponds to the FDG avid nodules seen on the prior PET/CT.</p><p> </p><p>A hypoechoic structure posterior to the right mid border of the thyroid</p><p>gland measuring 0.6 x 0.3 x 0.4 cm may represent a parathyroid adenoma.</p><p> </p><p> </p><p>Cervical lymph nodes: Normal.</p><p> </p> <p>EXAM: US THYROID</p><p> </p><p>DATE: 04/10/2018 5:43 PM</p><p> </p><p>INDICATION:incidental findings on pet scan</p><p> </p>< p>ADDITIONAL INFORMATION: None.</p><p> </p><p>COMPARISON: PET/CT 01/23/2018</p><p> </p><p>TECHNIQUE: Multiplanar grayscale and color Doppler ultrasound of the</p><p>neck were obtained in the area of the thyroid. </p><p> </p><p>FINDINGS:</p><p>Thyroid parenchyma: Mostly homogeneous.</p><p> </ p><p>Right thyroid size: 4.4 x 1.3 x 1.5 Cm</p><p> </p><p>Left thyroid size: 4.5 x 1.1 x 1.7 cm</p><p> </p><p>Isthmus thickness: 0.3 cm</p><p> </p><p>Thyroid nodules: Identified.</p><p> </p><p>Nodule 1:</p><p>Location: Left inferior pole</p><p>Size: 0.7 x 1.3 x 0.6 cm</p><p>Composition: Solid or almost completely solid (2 points).</p><p>Echogenicity: Isoechoic (1 point).</p><p>Shape: Wider than tall (0 points).</p><p>Margins: Smooth (0 points).</p><p>Echogenic foci: Absent (0 points).</p><p>Other: None.</p><p>ACR TI-RADS Score: TR3 - Mildly suspicious (total 3 points).</p><p>-- ACR recommendation:=2.5 cm FNA;=1.5 cm f/u in 1, 3, and 5 years;</p><p><1.5 cm no f/u or FNA.</p><p>Recommendations: No further follow-up required. These nodularity</p><p>corresponds to the FDG avid nodules seen on the prior PET/CT.</p><p> </p><p>A hypoechoic structure posterior to the right mid border of the thyroid</p><p>gland measuring 0.6 x 0.3 x 0.4 cm may represent a parathyroid adenoma.</p><p> </p><p> </p><p>Cervical lymph nodes: Normal.</p><p> </p> 04/10/2018 [facility] U/S THYROID/NECK <p styleCode="header">Interface, Rad/Mammog In - 04/10/2018 6:06 PM CDT</p><p><span>EXAM: US THYROID</span>

<span>DATE: 04/10/2018 5:43 PM</span>

<span>INDICATION: incidental findings on pet scan</span>

<span>ADDITIONAL INFORMATION: None.</span>
<br/& gt;<span>COMPARISON: PET/CT 01/23/2018</span>

<span>TECHNIQUE: Multiplanar grayscale and color Doppler ultrasound of the</span>
<span>neck were obtained in the area of the thyroid. </span>

<span>FINDINGS:</span>
<span>Thyroid parenchyma: Mostly homogeneous.</span>

<span>Right thyroid size: 4.4 x 1.3 x 1.5 Cm</span>

<span>Left thyroid size: 4.5 x 1.1 x 1.7 cm</span>

<span>Isthmus thickness: 0.3 cm</span>

<span>Thyroid nodules: Identified.</span>

<span>Nodule 1:</span>
<span>Location: Left inferior pole</span>
<span>Size: 0.7 x 1.3 x 0.6 cm</span>
<span>Composition: Solid or almost completely solid (2 points).</span>
<span>Echogenicity: Isoechoic (1 point).</span>
<span>Shape: Wider than tall (0 points).</span>
<span>Margins: Smooth (0 points).</span>
<span>Echogenic foci: Absent (0 points).</span>
<span>Other: None.</span>
<span>ACR TI- RADS Score: TR3 - Mildly suspicious (total 3 points).</span>
<span>-- ACR recommendation:=2.5 cm FNA;=1.5 cm f/u in 1, 3, and 5 years;</span>
<span><1.5 cm no f/u or FNA. </span>
<span>Recommendations: No further follow-up required. These nodularity</span>
<span>corresponds to the FDG avid nodules seen on the prior PET/CT.</span>

<span>A hypoechoic structure posterior to the right mid border of the thyroid</span>
<span>gland measuring 0.6 x 0.3 x 0.4 cm may represent a parathyroid adenoma.</span>

<span>Cervical lymph nodes: Normal.</span>

<span>IMPRESSION</span>
<span>IMPRESSION:</span>
<span>* Left thyroid nodule does not meet criteria for follow-up or FNA.</span>
<span>However, this nodule likely corresponds to FDG avid nodule seen on</span>
<span>prior PET/CT, consider follow-up in 6-12 months to document stability.</span>
<span>* Probable right parathyroid adenoma. Correlation with calcium and PTH</span>
<span>levels to determine the need for scintigraphic imaging. </span>

<span>REFERENCE:</span>
<span>Sakshi FN, Kalani WD, Zeke EG, et al. ACR Thyroid Imaging,</span>
<span>Reporting and Data System (TI-RADS): White Paper of the ACR TI-RADS</span>
<span>Committee. J Am Katey Radiol. 2017; 14(5): [phone].</span>

<span>Signed By: Yazan Moncada MD, 04/10/2018 6:01 PM</span>
</p> <p styleCode="header">Interface, Rad/Mammog In - 04/10/2018 6:06 PM CDT</p><p><span>EXAM: US THYROID</span>

<span>DATE: 04/10/2018 5:43 PM</span>

<span>INDICATION: incidental findings on pet scan</span>

<span>ADDITIONAL INFORMATION: None.</span>
<br/& gt;<span>COMPARISON: PET/CT 01/23/2018</span>

<span>TECHNIQUE: Multiplanar grayscale and color Doppler ultrasound of the</span>
<span>neck were obtained in the area of the thyroid. </span>

<span>FINDINGS:</span>
<span>Thyroid parenchyma: Mostly homogeneous.</span>

<span>Right thyroid size: 4.4 x 1.3 x 1.5 Cm</span>

<span>Left thyroid size: 4.5 x 1.1 x 1.7 cm</span>

<span>Isthmus thickness: 0.3 cm</span>

<span>Thyroid nodules: Identified.</span>

<span>Nodule 1:</span>
<span>Location: Left inferior pole</span>
<span>Size: 0.7 x 1.3 x 0.6 cm</span>
<span>Composition: Solid or almost completely solid (2 points).</span>
<span>Echogenicity: Isoechoic (1 point).</span>
<span>Shape: Wider than tall (0 points).</span>
<span>Margins: Smooth (0 points).</span>
<span>Echogenic foci: Absent (0 points).</span>
<span>Other: None.</span>
<span>ACR TI- RADS Score: TR3 - Mildly suspicious (total 3 points).</span>
<span>-- ACR recommendation:=2.5 cm FNA;=1.5 cm f/u in 1, 3, and 5 years;</span>
<span><1.5 cm no f/u or FNA. </span>
<span>Recommendations: No further follow-up required. These nodularity</span>
<span>corresponds to the FDG avid nodules seen on the prior PET/CT.</span>

<span>A hypoechoic structure posterior to the right mid border of the thyroid</span>
<span>gland measuring 0.6 x 0.3 x 0.4 cm may represent a parathyroid adenoma.</span>

<span>Cervical lymph nodes: Normal.</span>

<span>IMPRESSION</span>
<span>IMPRESSION:</span>
<span>* Left thyroid nodule does not meet criteria for follow-up or FNA.</span>
<span>However, this nodule likely corresponds to FDG avid nodule seen on</span>
<span>prior PET/CT, consider follow-up in 6-12 months to document stability.</span>
<span>* Probable right parathyroid adenoma. Correlation with calcium and PTH</span>
<span>levels to determine the need for scintigraphic imaging. </span>

<span>REFERENCE:</span>
<span>Sakshi FN, Kalani WD, Zeke EG, et al. ACR Thyroid Imaging,</span>
<span>Reporting and Data System (TI-RADS): White Paper of the ACR TI-RADS</span>
<span>Committee. J Am Katey Radiol. 2017; 14(5): [phone].</span>

<span>Signed By: Yazan Moncada MD, 04/10/2018 6:01 PM</span>
</p> 04/10/2018 [facility] U/S THYROID/NECK Addendum by Yazan Moncada MD on 04/13/2018 8:42 AM *Left [...] By: Yazan Moncada MD, 04/13/2018 8:42 AM IMPRESSION: *Left thyroid nodule does not meet criteria [...] By: Yazan Moncada MD, 04/10/2018 6:01 PM EXAM: US THYROID DATE: 04/10/2018 5:43 PM INDICATION:incidental findings on [...] a parathyroid adenoma. Cervical lymph nodes: Normal. Interface, Rad/Mammog In - 04/10/2018 6:06 PM [...] By: Yazan Moncada MD, 04/10/2018 6:01 PM 04/10/2018 [facility] CYTOLOGY [facility] Cytology (note) Name RON ARANA Date of 1980 Hospital Number [id number] Location [facility] ([facility]) CYTOPATHOLOGY Collected:02/10/2018 00:00 Received: 02/11/2018 10:05 FINAL DIAGNOSIS Cervicovaginal (liquid-based preparation): Satisfactory for evaluation Scant cellularity Negative for intraepithelial lesion or malignancy Reactive cellular changes associated with inflammation includes typical repair Electronically Signed Out Margaret Loera/[id number] Staff Pathologist Clinical History Date of Last [...] analyzed by the automated ThinPrep Imaging System, [employer], [place], [place]. 02/16/2018 [facility] HPV HIGH-RISK HPV High Risk Negative NEG 02/11/2018 The APTIMA HPV Assay is an in vitro nucleic acid amplification test for the qualitative detection of E6/E7 viral messenger RNA (mRNA) from 14 high-risk types of human papillomavirus (HPV) in cervical specimens. The high-risk HPV types detected by the assay include: 16,18,31,33,35,39,45,51,52,56,58,59,66, and 68. [facility] HPV HIGH-RISK CoPath Spec Number [id number] 02/11/2018 [facility] HPV HIGH-RISK HPV High Risk Negative NEG 02/10/2018 The APTIMA HPV Assay is an in vitro nucleic acid amplification test for the qualitative detection of E6/E7 viral messenger RNA (mRNA) from 14 high-risk types of human papillomavirus (HPV) in cervical specimens. The high-risk HPV types detected by the assay include: 16,18,31,33,35,39,45,51,52,56,58,59,66, and 68. [facility] HPV HIGH-RISK Co[employer] Spec Number [id number] 02/10/2018 [facility] CYTOLOGY [facility] Cytology (note) Name RON ARANA Date of 1980 Hospital Number [id number] Location [facility] ([facility]) CYTOPATHOLOGY Collected:02/10/2018 00:00 Received: 02/11/2018 10:05 FINAL DIAGNOSIS Cervicovaginal (liquid-based preparation): Satisfactory for evaluation Scant cellularity Negative for intraepithelial lesion or malignancy Reactive cellular changes associated with inflammation includes typical repair Electronically Signed Out Margaret Loera/[id number] Staff Pathologist Clinical History Date of Last [...] analyzed by the automated ThinPrep Imaging System, [employer], [place], [place]. 02/10/2018 [facility] GLUCOSE POC Glucose POC 108 mg/dL 74 - 106 01/23/2018 [facility] GLUCOSE POC Lab Interpretation Abnormal 01/23/2018 [facility] TUMORIMAGE PET/CT SKUL-T <p>IMPRESSION: </p><p>1.No evidence of locally recurrent or metastatic cervical cancer.</p><p>2.Mildly hypermetabolic left thyroid nodule may be correlated with</p><p>thyroid ultrasound.</p><p>3.Additional incidental findings, as above.</p><p> </p><p> </p><p>Signed By: Josh Haywood M.D., 01/23/2018 11:14 AM</p><p> </p> IMPRESSION: 1.No evidence of locally recurrent or metastatic cervical cancer. 2.Mildly hypermetabolic left thyroid nodule may be correlated with thyroid ultrasound. 3.Additional incidental findings, as above. Signed By: Josh Haywood M.D., 01/23/2018 11:14 AM 01/23/2018 [facility] <p>EXAMINATION: PET/CT with F- 18 FDG</p><p>CPT code:92663 (tumor imaging, skull base to thighs with additional</p><p>thin cuts of head and neck) </p><p> </p><p>INDICATION:Assess response to treatment for subsequent treatment</p><p>strategy </p><p> </p><p>ADDITIONALCLINICAL HISTORY: ?37y.o.?F who has a past medical history</p><p>of cervical cancer. She was recently seen in the ER at [place]</p><p>[facility] for fever and lower abdominal pain and fever. </p><p> </p><p>COMPARISON STUDIES: CT 09/20/2014</p><p> </p><p>STUDY DATE01/23/2018 8:53 AM</p><p> </p><p>SERUM GLUCOSE LEVEL: 108 mg/dL</p><p> </p>&lt ;p>RADIOPHARMACEUTICAL: F-18 FDG 10.28 mCi IV right antecubital</p><p> </p><p>UPTAKE TIME: 51 minutes</p><p> </p><p>Exclusion of for women &l t;50 yrs of age: Yes</p><p> </p><p>TECHNIQUE: The study was performed using in- line PET/CT from the skull</p><p>base to the mid-thigh.Cross-sectional and 3D (MIP) images of the PET</p><p>data and cross-sectional images of the CT data were generated with</p><p>co-registration of the 2 image data sets.The PET images are displayed</p><p>with and without attenuation correction.CT imaging was employed for</p><p>attenuation correction and anatomic localization of PET scan</p><p>abnormalities.A diagnostic CT with contrast was not performed.</p><p> </p><p>FINDINGS:</p><p>Head and neck: </p><p>No abnormal FDG activity within the visualized brain, orbits, paranasal</p><p>sinuses, and pharyngeal soft tissues. Mildly hypermetabolic left thyroid</p><p>nodule with SUV max 3.1 (image 61). No FDG-avid cervical lymph nodes.</p><p> </p><p>Chest: </p><p>No FDG-avid pulmonary nodules or airspace opacities.No FDG-avid</p><p>mediastinal, hilar or axillary lymph nodes.</p><p> </p><p>Abdomen: </p><p>No abnormal FDG activity within the liver, gallbladder, spleen,</p><p>pancreas, kidneys, adrenals, and bowel. No FDG-avid mesenteric or</p><p>retroperitoneal lymph nodes.</p><p> </p><p>Pelvis: </p><p>No abnormal FDG activity within the pelvis. No FDG-avid pelvic or</p><p>inguinal lymph nodes.</p><p> </p><p>Skeleton: </p><p>No FDG- avid skeletal lesions.</p><p> </p><p>Incidental CT findings:</p><p>*Small left thyroid nodule.</p><p>*Tiny hiatal hernia.</p><p>*Prior cholecystectomy.</p><p>*Brachytherapy seeds are present in the cervix.</p><p>*Mild circumferential bladder wall thickening may be due to</p><p>underdistention.</p><p>*Tiny fat-containing umbilical hernia.</p><p> </p><p> </p> <p>EXAMINATION: PET/CT with F-18 FDG</p><p>CPT code:79603 (tumor imaging, skull base to thighs with additional</p><p>thin cuts of head and neck) </p><p> </p><p>INDICATION:Assess response to treatment for subsequent treatment</p><p>strategy </p><p> </p><p>ADDITIONALCLINICAL HISTORY: ?37y.o.?F who has a past medical history</p><p>of cervical cancer. She was recently seen in the ER at [place]</p><p>[facility] for fever and lower abdominal pain and fever. </p><p> </p><p>COMPARISON STUDIES: CT 09/20/2014</p><p> </p><p>STUDY DATE01/23/2018 8:53 AM</p><p> </p><p>SERUM GLUCOSE LEVEL: 108 mg/dL</p><p> </p><p>RADIOPHARMACEUTICAL: F-18 FDG 10.28 mCi IV right antecubital</p><p> </p><p>UPTAKE TIME: 51 minutes</p><p> </p><p>Exclusion of for women <50 yrs of age: Yes</p><p> </p><p>TECHNIQUE: The study was performed using in-line PET/CT from the skull</p><p>base to the mid-thigh.Cross-sectional and 3D (MIP) images of the PET</p><p>data and cross- sectional images of the CT data were generated with</p><p>co-registration of the 2 image data sets.The PET images are displayed</p><p>with and without attenuation correction.CT imaging was employed for</p><p>attenuation correction and anatomic localization of PET scan</p><p>abnormalities.A diagnostic CT with contrast was not performed.</p><p> </p><p>FINDINGS:</p><p>Head and neck: </p><p>No abnormal FDG activity within the visualized brain, orbits, paranasal& lt;/p><p>sinuses, and pharyngeal soft tissues. Mildly hypermetabolic left thyroid</p><p>nodule with SUV max 3.1 (image 61). No FDG-avid cervical lymph nodes.</p><p> </p><p>Chest: </p><p>No FDG-avid pulmonary nodules or airspace opacities.No FDG-avid</p><p>mediastinal, hilar or axillary lymph nodes.</p><p> </p><p>Abdomen: </p><p>No abnormal FDG activity within the liver, gallbladder, spleen,</p><p>pancreas, kidneys, adrenals, and bowel. No FDG-avid mesenteric or</p><p>retroperitoneal lymph nodes.</p><p> </p><p>Pelvis: </p><p>No abnormal FDG activity within the pelvis. No FDG-avid pelvic or</p><p>inguinal lymph nodes.</p><p> </p><p>Skeleton: </p><p>No FDG-avid skeletal lesions.</p><p> </p><p>Incidental CT findings:</p><p>*Small left thyroid nodule.</p><p>*Tiny hiatal hernia.</p><p>*Prior cholecystectomy.</p><p>*Brachytherapy seeds are present in the cervix.</p><p>*Mild circumferential bladder wall thickening may be due to</p><p>underdistention.</p><p>*Tiny fat-containing umbilical hernia.</p><p> </p><p> </p> 01/23/2018 [facility] TUMORIMAGE PET/CT SKUL-T <p styleCode="header">Interface, Rad/Mammog In - 01/23/2018 11:20 AM CDT</p><p><span>EXAMINATION: PET/CT with F- 18 FDG</span>
<span>CPT code: 10922 (tumor imaging, skull base to thighs with additional</span>
<span>thin cuts of head and neck) </span>

<span>INDICATION: Assess response to treatment for subsequent treatment</span>
<span>strategy </span>

<span>ADDITIONAL CLINICAL HISTORY: ?37y.o.?F who has a past medical history</span>
<span>of cervical cancer. She was recently seen in the ER at [place]</span>
<span>[facility] for fever and lower abdominal pain and fever. </span>

<span>COMPARISON STUDIES: CT 09/20/2014</span>

<span>STUDY DATE 01/23/2018 8:53 AM</span>

<span>SERUM GLUCOSE LEVEL: 108 mg/dL</span>

<span>RADIOPHARMACEUTICAL: F-18 FDG 10.28 mCi IV right antecubital</span>

<span>UPTAKE TIME: 51 minutes</span>< br/>
<span>Exclusion of for women <50 yrs of age: Yes</span>

<span>TECHNIQUE: The study was performed using in-line PET/CT from the skull</span>
<span>base to the mid-thigh. Cross-sectional and 3D (MIP) images of the PET</span>
<span>data and cross-sectional images of the CT data were generated with</span>
<span>co-registration of the 2 image data sets. The PET images are displayed</span>
<span>with and without attenuation correction. CT imaging was employed for</span>
<span>attenuation correction and anatomic localization of PET scan</span>
<span>abnormalities. A diagnostic CT with contrast was not performed. </span>

<span>FINDINGS:</span>
<span>Head and neck: </span>
<span>No abnormal FDG activity within the visualized brain, orbits, paranasal</span>
<span>sinuses, and pharyngeal soft tissues. Mildly hypermetabolic left thyroid</span>
<span>nodule with SUV max 3.1 (image 61). No FDG-avid cervical lymph nodes.</span>

<span>Chest: </span>
<span>No FDG-avid pulmonary nodules or airspace opacities. No FDG-avid</span>
<span>mediastinal, hilar or axillary lymph nodes. </span>

<span>Abdomen: </span>
<span>No abnormal FDG activity within the liver, gallbladder, spleen,</span>
<span>pancreas, kidneys, adrenals, and bowel. No FDG-avid mesenteric or</span>
<span>retroperitoneal lymph nodes.</span>

<span>Pelvis: </span>
<span>No abnormal FDG activity within the pelvis. No FDG-avid pelvic or</span>
<span>inguinal lymph nodes.</span>

<span>Skeleton: </span>
<span>No FDG-avid skeletal lesions.</span>

<span>Incidental CT findings:</span>& lt;br/><span>* Small left thyroid nodule.</span>
<span>* Tiny hiatal hernia.</span>
<span>* Prior cholecystectomy.</span>
<span>* Brachytherapy seeds are present in the cervix.</span>
<span>* Mild circumferential bladder wall thickening may be due to</span>
<span>underdistention.</span>
<span>* Tiny fat-containing umbilical hernia.</span>

<span>IMPRESSION</span>
<span>IMPRESSION: </span>
<span>1. No evidence of locally recurrent or metastatic cervical cancer.</span>
<span>2. Mildly hypermetabolic left thyroid nodule may be correlated with</span>
<span>thyroid ultrasound.</span>
<span>3. Additional incidental findings, as above.</span>

<span>Signed By: Josh Haywood M.D., 01/23/2018 11:14 AM</span>
</p> <p styleCode="header">Interface, Rad/Mammog In - 01/23/2018 11:20 AM CDT</p><p><span>EXAMINATION: PET/CT with F-18 FDG</span>
<span>CPT code: 98521 (tumor imaging, skull base to thighs with additional</span>
<span>thin cuts of head and neck) </span>

<span>INDICATION: Assess response to treatment for subsequent treatment</span>
<span>strategy </span>

<span>ADDITIONAL CLINICAL HISTORY: ?37y.o.?F who has a past medical history</span>
<span>of cervical cancer. She was recently seen in the ER at [place]</span>
[facility]span[facility] for fever and lower abdominal pain and fever. </span>

<span>COMPARISON STUDIES: CT 09/20/2014</span>

<span>STUDY DATE 01/23/2018 8:53 AM</span>

<span>SERUM GLUCOSE LEVEL: 108 mg/dL</span>

<span>RADIOPHARMACEUTICAL: F-18 FDG 10.28 mCi IV right antecubital</span>

<span>UPTAKE TIME: 51 minutes</span>< br/>
<span>Exclusion of for women <50 yrs of age: Yes</span>

<span>TECHNIQUE: The study was performed using in-line PET/CT from the skull</span>
<span>base to the mid-thigh. Cross-sectional and 3D (MIP) images of the PET</span>
<span>data and cross-sectional images of the CT data were generated with</span>
<span>co-registration of the 2 image data sets. The PET images are displayed</span>
<span>with and without attenuation correction. CT imaging was employed for</span>
<span>attenuation correction and anatomic localization of PET scan</span>
<span>abnormalities. A diagnostic CT with contrast was not performed. </span>

<span>FINDINGS:</span>
<span>Head and neck: </span>
<span>No abnormal FDG activity within the visualized brain, orbits, paranasal</span>
<span>sinuses, and pharyngeal soft tissues. Mildly hypermetabolic left thyroid</span>
<span>nodule with SUV max 3.1 (image 61). No FDG-avid cervical lymph nodes.</span>

<span>Chest: </span>
<span>No FDG-avid pulmonary nodules or airspace opacities. No FDG-avid</span>
<span>mediastinal, hilar or axillary lymph nodes. </span>

<span>Abdomen: </span>
<span>No abnormal FDG activity within the liver, gallbladder, spleen,</span>
<span>pancreas, kidneys, adrenals, and bowel. No FDG-avid mesenteric or</span>
<span>retroperitoneal lymph nodes.</span>

<span>Pelvis: </span>
<span>No abnormal FDG activity within the pelvis. No FDG-avid pelvic or</span>
<span>inguinal lymph nodes.</span>

<span>Skeleton: </span>
<span>No FDG-avid skeletal lesions.</span>

<span>Incidental CT findings:</span>& lt;br/><span>* Small left thyroid nodule.</span>
<span>* Tiny hiatal hernia.</span>
<span>* Prior cholecystectomy.</span>
<span>* Brachytherapy seeds are present in the cervix.</span>
<span>* Mild circumferential bladder wall thickening may be due to</span>
<span>underdistention.</span>
<span>* Tiny fat-containing umbilical hernia.</span>

<span>IMPRESSION</span>
<span>IMPRESSION: </span>
<span>1. No evidence of locally recurrent or metastatic cervical cancer.</span>
<span>2. Mildly hypermetabolic left thyroid nodule may be correlated with</span>
<span>thyroid ultrasound.</span>
<span>3. Additional incidental findings, as above.</span>

<span>Signed By: Josh Haywood M.D., 01/23/2018 11:14 AM</span>
</p> 01/23/2018 [facility] TUMORIMAGE PET/CT SKUL-T IMPRESSION: 1.No evidence of locally recurrent or metastatic cervical cancer. 2.Mildly hypermetabolic left thyroid nodule may be correlated with thyroid ultrasound. 3.Additional incidental findings, as above. Signed By: Josh Haywood M.D., 01/23/2018 11:14 AM EXAMINATION: PET/CT with F-18 FDG CPT code:37434 (tumor imaging, skull base to thighs with additional thin cuts of head and neck) INDICATION:Assess response to treatment for subsequent treatment strategy ADDITIONALCLINICAL HISTORY: ?37y.o.?F who has a past medical history of cervical cancer. She was recently seen in the ER at [facility] for fever and lower abdominal pain and [...] due to underdistention. *Tiny fat-containing umbilical hernia. Interface, Rad/Mammog In - 01/23/2018 11:20 AM CDT EXAMINATION: PET/CT with F-18 FDG CPT code: 62958 (tumor imaging, skull base to thighs with additional thin cuts of head and neck) INDICATION: Assess response to treatment for subsequent treatment strategy ADDITIONAL CLINICAL HISTORY: ?37y.o.?F who has a past medical history of cervical cancer. She was recently seen in the ER at [facility] for fever and lower abdominal pain and [...] By: Josh Haywood M.D., 01/23/2018 11:14 AM 01/23/2018 [facility] TUMORIMAGE PET/CT SKUL-T <p>IMPRESSION: </p><p>1.No evidence of locally recurrent or metastatic cervical cancer.</p><p>2.Mildly hypermetabolic left thyroid nodule may be correlated with</p><p>thyroid ultrasound.</p><p>3.Additional incidental findings, as above.</p><p> </p><p> </p><p>Signed By: Josh Haywood M.D., 01/23/2018 11:14 AM</p><p> </p> IMPRESSION: 1.No evidence of locally recurrent or metastatic cervical cancer. 2.Mildly hypermetabolic left thyroid nodule may be correlated with thyroid ultrasound. 3.Additional incidental findings, as above. Signed By: Josh Haywood M.D., 01/23/2018 11:14 AM 01/23/2018 [facility] <p>EXAMINATION: PET/CT with F- 18 FDG</p><p>CPT code:14615 (tumor imaging, skull base to thighs with additional</p><p>thin cuts of head and neck) </p><p> </p><p>INDICATION:Assess response to treatment for subsequent treatment</p><p>strategy </p><p> </p><p>ADDITIONALCLINICAL HISTORY: ?37y.o.?F who has a past medical history</p><p>of cervical cancer. She was recently seen in the ER at [place]</p[facility] for fever and lower abdominal pain and fever. </p><p> </p><p>COMPARISON STUDIES: CT 09/20/2014</p><p> </p><p>STUDY DATE01/23/2018 8:53 AM</p><p> </p><p>SERUM GLUCOSE LEVEL: 108 mg/dL</p><p> </p>&lt ;p>RADIOPHARMACEUTICAL: F-18 FDG 10.28 mCi IV right antecubital</p><p> </p><p>UPTAKE TIME: 51 minutes</p><p> </p><p>Exclusion of for women &l t;50 yrs of age: Yes</p><p> </p><p>TECHNIQUE: The study was performed using in- line PET/CT from the skull</p><p>base to the mid-thigh.Cross-sectional and 3D (MIP) images of the PET</p><p>data and cross-sectional images of the CT data were generated with</p><p>co-registration of the 2 image data sets.The PET images are displayed</p><p>with and without attenuation correction.CT imaging was employed for</p><p>attenuation correction and anatomic localization of PET scan</p><p>abnormalities.A diagnostic CT with contrast was not performed.</p><p> </p><p>FINDINGS:</p><p>Head and neck: </p><p>No abnormal FDG activity within the visualized brain, orbits, paranasal</p><p>sinuses, and pharyngeal soft tissues. Mildly hypermetabolic left thyroid</p><p>nodule with SUV max 3.1 (image 61). No FDG-avid cervical lymph nodes.</p><p> </p><p>Chest: </p><p>No FDG-avid pulmonary nodules or airspace opacities.No FDG-avid</p><p>mediastinal, hilar or axillary lymph nodes.</p><p> </p><p>Abdomen: </p><p>No abnormal FDG activity within the liver, gallbladder, spleen,</p><p>pancreas, kidneys, adrenals, and bowel. No FDG-avid mesenteric or</p><p>retroperitoneal lymph nodes.</p><p> </p><p>Pelvis: </p><p>No abnormal FDG activity within the pelvis. No FDG-avid pelvic or</p><p>inguinal lymph nodes.</p><p> </p><p>Skeleton: </p><p>No FDG- avid skeletal lesions.</p><p> </p><p>Incidental CT findings:</p><p>*Small left thyroid nodule.</p><p>*Tiny hiatal hernia.</p><p>*Prior cholecystectomy.</p><p>*Brachytherapy seeds are present in the cervix.</p><p>*Mild circumferential bladder wall thickening may be due to</p><p>underdistention.</p><p>*Tiny fat-containing umbilical hernia.</p><p> </p><p> </p> <p>EXAMINATION: PET/CT with F-18 FDG</p><p>CPT code:49470 (tumor imaging, skull base to thighs with additional</p><p>thin cuts of head and neck) </p><p> </p><p>INDICATION:Assess response to treatment for subsequent treatment</p><p>strategy </p><p> </p><p>ADDITIONALCLINICAL HISTORY: ?37y.o.?F who has a past medical history</p><p>of cervical cancer. She was recently seen in the ER at [place]</p[facility] for fever and lower abdominal pain and fever. </p><p> </p><p>COMPARISON STUDIES: CT 09/20/2014</p><p> </p><p>STUDY DATE01/23/2018 8:53 AM</p><p> </p><p>SERUM GLUCOSE LEVEL: 108 mg/dL</p><p> </p><p>RADIOPHARMACEUTICAL: F-18 FDG 10.28 mCi IV right antecubital</p><p> </p><p>UPTAKE TIME: 51 minutes</p><p> </p><p>Exclusion of for women <50 yrs of age: Yes</p><p> </p><p>TECHNIQUE: The study was performed using in-line PET/CT from the skull</p><p>base to the mid-thigh.Cross-sectional and 3D (MIP) images of the PET</p><p>data and cross- sectional images of the CT data were generated with</p><p>co-registration of the 2 image data sets.The PET images are displayed</p><p>with and without attenuation correction.CT imaging was employed for</p><p>attenuation correction and anatomic localization of PET scan</p><p>abnormalities.A diagnostic CT with contrast was not performed.</p><p> </p><p>FINDINGS:</p><p>Head and neck: </p><p>No abnormal FDG activity within the visualized brain, orbits, paranasal& lt;/p><p>sinuses, and pharyngeal soft tissues. Mildly hypermetabolic left thyroid</p><p>nodule with SUV max 3.1 (image 61). No FDG-avid cervical lymph nodes.</p><p> </p><p>Chest: </p><p>No FDG-avid pulmonary nodules or airspace opacities.No FDG-avid</p><p>mediastinal, hilar or axillary lymph nodes.</p><p> </p><p>Abdomen: </p><p>No abnormal FDG activity within the liver, gallbladder, spleen,</p><p>pancreas, kidneys, adrenals, and bowel. No FDG-avid mesenteric or</p><p>retroperitoneal lymph nodes.</p><p> </p><p>Pelvis: </p><p>No abnormal FDG activity within the pelvis. No FDG-avid pelvic or</p><p>inguinal lymph nodes.</p><p> </p><p>Skeleton: </p><p>No FDG-avid skeletal lesions.</p><p> </p><p>Incidental CT findings:</p><p>*Small left thyroid nodule.</p><p>*Tiny hiatal hernia.</p><p>*Prior cholecystectomy.</p><p>*Brachytherapy seeds are present in the cervix.</p><p>*Mild circumferential bladder wall thickening may be due to</p><p>underdistention.</p><p>*Tiny fat-containing umbilical hernia.</p><p> </p><p> </p> 01/23/2018 [facility] TUMORIMAGE PET/CT SKUL-T <p styleCode="header">Interface, Rad/Mammog In - 01/23/2018 11:20 AM CDT</p><p><span>EXAMINATION: PET/CT with F- 18 FDG</span>
<span>CPT code: 77441 (tumor imaging, skull base to thighs with additional</span>
<span>thin cuts of head and neck) </span>

<span>INDICATION: Assess response to treatment for subsequent treatment</span>
<span>strategy </span>

<span>ADDITIONAL CLINICAL HISTORY: ?37y.o.?F who has a past medical history</span>
<span>of cervical cancer. She was recently seen in the ER at [place]</span>
[facility]span[facility] for fever and lower abdominal pain and fever. </span>

<span>COMPARISON STUDIES: CT 09/20/2014</span>

<span>STUDY DATE 01/23/2018 8:53 AM</span>

<span>SERUM GLUCOSE LEVEL: 108 mg/dL</span>

<span>RADIOPHARMACEUTICAL: F-18 FDG 10.28 mCi IV right antecubital</span>

<span>UPTAKE TIME: 51 minutes</span>< br/>
<span>Exclusion of for women <50 yrs of age: Yes</span>

<span>TECHNIQUE: The study was performed using in-line PET/CT from the skull</span>
<span>base to the mid-thigh. Cross-sectional and 3D (MIP) images of the PET</span>
<span>data and cross-sectional images of the CT data were generated with</span>
<span>co-registration of the 2 image data sets. The PET images are displayed</span>
<span>with and without attenuation correction. CT imaging was employed for</span>
<span>attenuation correction and anatomic localization of PET scan</span>
<span>abnormalities. A diagnostic CT with contrast was not performed. </span>

<span>FINDINGS:</span>
<span>Head and neck: </span>
<span>No abnormal FDG activity within the visualized brain, orbits, paranasal</span>
<span>sinuses, and pharyngeal soft tissues. Mildly hypermetabolic left thyroid</span>
<span>nodule with SUV max 3.1 (image 61). No FDG-avid cervical lymph nodes.</span>

<span>Chest: </span>
<span>No FDG-avid pulmonary nodules or airspace opacities. No FDG-avid</span>
<span>mediastinal, hilar or axillary lymph nodes. </span>

<span>Abdomen: </span>
<span>No abnormal FDG activity within the liver, gallbladder, spleen,</span>
<span>pancreas, kidneys, adrenals, and bowel. No FDG-avid mesenteric or</span>
<span>retroperitoneal lymph nodes.</span>

<span>Pelvis: </span>
<span>No abnormal FDG activity within the pelvis. No FDG-avid pelvic or</span>
<span>inguinal lymph nodes.</span>

<span>Skeleton: </span>
<span>No FDG-avid skeletal lesions.</span>

<span>Incidental CT findings:</span>& lt;br/><span>* Small left thyroid nodule.</span>
<span>* Tiny hiatal hernia.</span>
<span>* Prior cholecystectomy.</span>
<span>* Brachytherapy seeds are present in the cervix.</span>
<span>* Mild circumferential bladder wall thickening may be due to</span>
<span>underdistention.</span>
<span>* Tiny fat-containing umbilical hernia.</span>

<span>IMPRESSION</span>
<span>IMPRESSION: </span>
<span>1. No evidence of locally recurrent or metastatic cervical cancer.</span>
<span>2. Mildly hypermetabolic left thyroid nodule may be correlated with</span>
<span>thyroid ultrasound.</span>
<span>3. Additional incidental findings, as above.</span>

<span>Signed By: Josh Haywood M.D., 01/23/2018 11:14 AM</span>
</p> <p styleCode="header">Interface, Rad/Mammog In - 01/23/2018 11:20 AM CDT</p><p><span>EXAMINATION: PET/CT with F-18 FDG</span>
<span>CPT code: 45474 (tumor imaging, skull base to thighs with additional</span>
<span>thin cuts of head and neck) </span>

<span>INDICATION: Assess response to treatment for subsequent treatment</span>
<span>strategy </span>

<span>ADDITIONAL CLINICAL HISTORY: ?37y.o.?F who has a past medical history</span>
<span>of cervical cancer. She was recently seen in the ER at [place]span[facility]span[facility] for fever and lower abdominal pain and fever. </span>

<span>COMPARISON STUDIES: CT 09/20/2014</span>

<span>STUDY DATE 01/23/2018 8:53 AM</span>

<span>SERUM GLUCOSE LEVEL: 108 mg/dL</span>

<span>RADIOPHARMACEUTICAL: F-18 FDG 10.28 mCi IV right antecubital</span>

<span>UPTAKE TIME: 51 minutes</span>< br/>
<span>Exclusion of for women <50 yrs of age: Yes</span>

<span>TECHNIQUE: The study was performed using in-line PET/CT from the skull</span>
<span>base to the mid-thigh. Cross-sectional and 3D (MIP) images of the PET</span>
<span>data and cross-sectional images of the CT data were generated with</span>
<span>co-registration of the 2 image data sets. The PET images are displayed</span>
<span>with and without attenuation correction. CT imaging was employed for</span>
<span>attenuation correction and anatomic localization of PET scan</span>
<span>abnormalities. A diagnostic CT with contrast was not performed. </span>

<span>FINDINGS:</span>
<span>Head and neck: </span>
<span>No abnormal FDG activity within the visualized brain, orbits, paranasal</span>
<span>sinuses, and pharyngeal soft tissues. Mildly hypermetabolic left thyroid</span>
<span>nodule with SUV max 3.1 (image 61). No FDG-avid cervical lymph nodes.</span>

<span>Chest: </span>
<span>No FDG-avid pulmonary nodules or airspace opacities. No FDG-avid</span>
<span>mediastinal, hilar or axillary lymph nodes. </span>

<span>Abdomen: </span>
<span>No abnormal FDG activity within the liver, gallbladder, spleen,</span>
<span>pancreas, kidneys, adrenals, and bowel. No FDG-avid mesenteric or</span>
<span>retroperitoneal lymph nodes.</span>

<span>Pelvis: </span>
<span>No abnormal FDG activity within the pelvis. No FDG-avid pelvic or</span>
<span>inguinal lymph nodes.</span>

<span>Skeleton: </span>
<span>No FDG-avid skeletal lesions.</span>

<span>Incidental CT findings:</span>& lt;br/><span>* Small left thyroid nodule.</span>
<span>* Tiny hiatal hernia.</span>
<span>* Prior cholecystectomy.</span>
<span>* Brachytherapy seeds are present in the cervix.</span>
<span>* Mild circumferential bladder wall thickening may be due to</span>
<span>underdistention.</span>
<span>* Tiny fat-containing umbilical hernia.</span>

<span>IMPRESSION</span>
<span>IMPRESSION: </span>
<span>1. No evidence of locally recurrent or metastatic cervical cancer.</span>
<span>2. Mildly hypermetabolic left thyroid nodule may be correlated with</span>
<span>thyroid ultrasound.</span>
<span>3. Additional incidental findings, as above.</span>

<span>Signed By: Josh Haywood M.D., 01/23/2018 11:14 AM</span>
</p> 01/23/2018 [facility] TUMORIMAGE PET/CT SKUL-T IMPRESSION: 1.No evidence of locally recurrent or metastatic cervical cancer. 2.Mildly hypermetabolic left thyroid nodule may be correlated with thyroid ultrasound. 3.Additional incidental findings, as above. Signed By: Josh Haywood M.D., 01/23/2018 11:14 AM EXAMINATION: PET/CT with F-18 FDG CPT code:29778 (tumor imaging, skull base to thighs with additional thin cuts of head and neck) INDICATION:Assess response to treatment for subsequent treatment strategy ADDITIONALCLINICAL HISTORY: ?37y.o.?F who has a past medical history of cervical cancer. She was recently seen in the ER at [facility] for fever and lower abdominal pain and [...] due to underdistention. *Tiny fat-containing umbilical hernia. Interface, Rad/Mammog In - 01/23/2018 11:20 AM CDT EXAMINATION: PET/CT with F-18 FDG CPT code: 55393 (tumor imaging, skull base to thighs with additional thin cuts of head and neck) INDICATION: Assess response to treatment for subsequent treatment strategy ADDITIONAL CLINICAL HISTORY: ?37y.o.?F who has a past medical history of cervical cancer. She was recently seen in the ER at [facility] for fever and lower abdominal pain and [...] By: Josh Haywood M.D., 01/23/2018 11:14 AM 01/23/2018 [facility] GLUCOSE POC Glucose POC 108 mg/dL 74 - 106 01/23/2018 High [facility] GLUCOSE POC Lab Interpretation Abnormal 01/23/2018 [facility] ANTITHYROGLOBULIN AB Thyroglobulin Ab <1.0
Reference range: 0.0 to 0.9
Unit: IU/mL
(note)
Thyroglobulin Antibody measured by [employer]
12/24/2017 [facility] THYROID PEROXIDASE (TPO) AB Thy Perox (TPO) Ab 16 Reference range: 0 to 34 Unit: IU/mL 12/24/2017 [facility] HEMOGLOBIN A1C Hemoglobin A1c 5.5 % 4.3 - 6.1 12/23/2017 [facility] HEMOGLOBIN A1C Est Average Gluc 111.2 mg/dL 12/23/2017 [facility] VIT D, 25-HYDROXY Vit D, 25-Hydroxy 21.6 ng/mL 30 - 100 12/23/2017 Vitamin D deficiency has been defined by the [place] [employer] and [employer] guideline as a level of serum 25-OH Vitamin D less than 20 ng/mL. The Endocrine Society further defines Vitamin D insufficiency as a level between 21 and 29 ng/mL and sufficiency as a level between 30 and 100 ng/mL. [facility] VIT D, 25-HYDROXY Lab Interpretation Abnormal 12/23/2017 [facility] BASIC METABOLIC PANEL CO2 27 mmol/L 21 - 31 12/23/2017 [facility] BASIC METABOLIC PANEL Chloride 104 mmol/L 98 - 107 12/23/2017 [facility] BASIC METABOLIC PANEL Potassium 3.8 mmol/L 3.5 - 5.1 12/23/2017 [facility] BASIC METABOLIC PANEL Sodium 141 mmol/L 136 - 145 12/23/2017 [facility] BASIC METABOLIC PANEL Glucose 93 mg/dL 70 - 110 12/23/2017 [facility] BASIC METABOLIC PANEL Urea Nitrogen 17 mg/dL 7 - 25 12/23/2017 [facility] BASIC METABOLIC PANEL Creatinine 0.70 mg/dL 0.6 - 1.2 12/23/2017 [facility] BASIC METABOLIC PANEL Anion Gap 10 12/23/2017 [facility] BASIC METABOLIC PANEL Calcium 9.0 mg/dL 8.6 - 10.3 12/23/2017 [facility] BASIC METABOLIC PANEL GFR, Estimated >60 mL/min/1.73 m2 12/23/2017 [facility] BASIC METABOLIC PANEL GFR, Estim, Afr-Am >60 mL/min/1.73 m2 12/23/2017 [facility] LIPID PROFILE Cholesterol 153 mg/dL 12/23/2017 REFERENCE RANGE: Desirable: <200 mg/dL Borderline: 200-240 mg/dL High Risk: >240 mg/dL [facility] LIPID PROFILE Triglyceride 52 mg/dL <150 12/23/2017 REFERENCE RANGE: Normal: <150 mg/dL Borderline High: 150-199 mg/dL High: 200-499 mg/dL Very High: >rc=835 mg/dL [facility] LIPID PROFILE HDL 54 mg/dL 12/23/2017 Increased CHD risk: <40 mg/dL Decreased CHD risk: >60 mg/dL [facility] LIPID PROFILE LDL 89 mg/dL 12/23/2017 REFERENCE RANGE: Optimal: <100 mg/dL Near Optimal: 100-129 mg/dL Borderline High: 130-159 mg/dL High: 160-189 mg/dL Very High: >ih=394 mg/dL [facility] LIVER PROFILE T Protein 8.6 g/dL 6 - 8.3 12/23/2017 [facility] LIVER PROFILE Albumin 4.3 g/dL 3.7 - 5.3 12/23/2017 [facility] LIVER PROFILE T Bilirubin 0.7 mg/dL 0.2 - 1.2 12/23/2017 [facility] LIVER PROFILE Alk Phos 68 U/L 34 - 104 12/23/2017 [facility] LIVER PROFILE AST 11 U/L 13 - 39 12/23/2017 [facility] LIVER PROFILE ALT 10 U/L 7 - 52 12/23/2017 [facility] LIVER PROFILE D Bilirubin 0.2 mg/dL 0 - 0.2 12/23/2017 [facility] LIVER PROFILE Lab Interpretation Abnormal 12/23/2017 [facility] CBC/DIFF WBC 5.2 K/uL 4.5 - 11 12/23/2017 [facility] CBC/DIFF RBC 4.20 4.20 - 5.40 12/23/2017 [facility] CBC/DIFF Hemoglobin 12.8 g/dL 12 - 16 12/23/2017 [facility] CBC/DIFF Hematocrit 38.8 % 37 - 47 12/23/2017 [facility] CBC/DIFF MCV 92 fL 82 - 92 12/23/2017 [facility] CBC/DIFF MCH 30.5 pg 27 - 32 12/23/2017 [facility] CBC/DIFF MCHC 33.0 g/dL 32 - 36 12/23/2017 [facility] CBC/DIFF RDW 42.4 fL 36.4 - 46.3 12/23/2017 [facility] CBC/DIFF Platelet 288 K/uL 150 - 400 12/23/2017 [facility] CBC/DIFF Mean Platelet Volume 9.5 fL 9.4 - 12.4 12/23/2017 [facility] CBC/DIFF Percent NRBC 0.0 12/23/2017 [facility] CBC/DIFF Absolute NRBC 0.00 12/23/2017 [facility] CBC/DIFF Neutrophil 53.1 % 34 - 70 12/23/2017 [facility] CBC/DIFF Lymphocyte 37.4 % 20 - 50 12/23/2017 [facility] CBC/DIFF Monocyte 6.6 % 5 - 12 12/23/2017 [facility] CBC/DIFF Eosinophil 2.1 % 0.7 - 5 12/23/2017 [facility] CBC/DIFF Basophil 0.6 % 0.1 - 1.2 12/23/2017 [facility] CBC/DIFF Pct Immat Gran 0.2 0.0 - 0.5 12/23/2017 [facility] CBC/DIFF Neutrophil, Abs 2.74 K/uL 1.56 - 6.13 12/23/2017 [facility] CBC/DIFF Lymphocyte, Abs 1.93 K/uL 1.18 - 3.74 12/23/2017 [facility] CBC/DIFF Monocyte, Abs 0.34 K/uL 0.24 - 0.36 12/23/2017 [facility] CBC/DIFF Eosinophil, Abs 0.11 K/uL 0.04 - 0.36 12/23/2017 [facility] CBC/DIFF Basophil, Abs 0.03 K/uL 0.01 - 0.08 12/23/2017 [facility] CBC/DIFF Absol Immat Gran 0.01 K/uL 0 - 0.03 12/23/2017 [facility] ANTITHYROGLOBULIN AB Thyroglobulin Ab <1.0
Reference range: 0.0 to 0.9
Unit: IU/mL
(note)
Thyroglobulin Antibody measured by [employer]
12/22/2017 [facility] BASIC METABOLIC PANEL CO2 27 mmol/L 21 - 31 12/22/2017 [facility] BASIC METABOLIC PANEL Chloride 104 mmol/L 98 - 107 12/22/2017 [facility] BASIC METABOLIC PANEL Potassium 3.8 mmol/L 3.5 - 5.1 12/22/2017 [facility] BASIC METABOLIC PANEL Sodium 141 mmol/L 136 - 145 12/22/2017 [facility] BASIC METABOLIC PANEL Glucose 93 mg/dL 70 - 110 12/22/2017 [facility] BASIC METABOLIC PANEL Urea Nitrogen 17 mg/dL 7 - 25 12/22/2017 [facility] BASIC METABOLIC PANEL Creatinine 0.70 mg/dL 0.6 - 1.2 12/22/2017 [facility] BASIC METABOLIC PANEL Anion Gap 10 12/22/2017 [facility] BASIC METABOLIC PANEL Calcium 9.0 mg/dL 8.6 - 10.3 12/22/2017 [facility] BASIC METABOLIC PANEL GFR, Estimated >60 mL/min/1.73 m2 12/22/2017 [facility] BASIC METABOLIC PANEL GFR, Estim, Afr-Am >60 mL/min/1.73 m2 12/22/2017 [facility] CBC/DIFF WBC 5.2 K/uL 4.5 - 11 12/22/2017 [facility] CBC/DIFF RBC 4.20 M/uL 4.20 - 5.40 12/22/2017 [facility] CBC/DIFF Hemoglobin 12.8 g/dL 12 - 16 12/22/2017 [facility] CBC/DIFF Hematocrit 38.8 % 37 - 47 12/22/2017 [facility] CBC/DIFF MCV 92 fL 82 - 92 12/22/2017 [facility] CBC/DIFF MCH 30.5 pg 27 - 32 12/22/2017 [facility] CBC/DIFF MCHC 33.0 g/dL 32 - 36 12/22/2017 [facility] CBC/DIFF RDW 42.4 fL 36.4 - 46.3 12/22/2017 [facility] CBC/DIFF Platelet 288 K/uL 150 - 400 12/22/2017 [facility] CBC/DIFF Mean Platelet Volume 9.5 fL 9.4 - 12.4 12/22/2017 [facility] CBC/DIFF Percent NRBC 0.0 12/22/2017 [facility] CBC/DIFF Absolute NRBC 0.00 12/22/2017 [facility] CBC/DIFF Neutrophil 53.1 % 34 - 70 12/22/2017 [facility] CBC/DIFF Lymphocyte 37.4 % 20 - 50 12/22/2017 [facility] CBC/DIFF Monocyte 6.6 % 5 - 12 12/22/2017 [facility] CBC/DIFF Eosinophil 2.1 % 0.7 - 5 12/22/2017 [facility] CBC/DIFF Basophil 0.6 % 0.1 - 1.2 12/22/2017 [facility] CBC/DIFF Pct Immat Gran 0.2 0.0 - 0.5 12/22/2017 [facility] CBC/DIFF Neutrophil, Abs 2.74 K/uL 1.56 - 6.13 12/22/2017 [facility] CBC/DIFF Lymphocyte, Abs 1.93 K/uL 1.18 - 3.74 12/22/2017 [facility] CBC/DIFF Monocyte, Abs 0.34 K/uL 0.24 - 0.36 12/22/2017 [facility] CBC/DIFF Eosinophil, Abs 0.11 K/uL 0.04 - 0.36 12/22/2017 [facility] CBC/DIFF Basophil, Abs 0.03 K/uL 0.01 - 0.08 12/22/2017 [facility] CBC/DIFF Absol Immat Gran 0.01 K/uL 0 - 0.03 12/22/2017 [facility] FREE T4 Free T4 0.87 ng/dl 0.61 - 1.12 12/22/2017 females: 1st Trimester-0.52-1.10 ng/dL 2nd Trimester=0.45-0.99 ng/dL 3rd Trimester=0.48-0.95 ng/dL [facility] HEMOGLOBIN A1C Hemoglobin A1c 5.5 % 4.3 - 6.1 12/22/2017 [facility] HEMOGLOBIN A1C Est Average Gluc 111.2 mg/dL 12/22/2017 [facility] LIPID PROFILE Cholesterol 153 mg/dL 12/22/2017 REFERENCE RANGE: Desirable: <200 mg/dL Borderline: 200-240 mg/dL High Risk: >240 mg/dL [facility] LIPID PROFILE Triglyceride 52 mg/dL <150 12/22/2017 REFERENCE RANGE: Normal: <150 mg/dL Borderline High: 150-199 mg/dL High: 200-499 mg/dL Very High: >ol=915 mg/dL [facility] LIPID PROFILE HDL 54 mg/dL 12/22/2017 Increased CHD risk: <40 mg/dL Decreased CHD risk: >60 mg/dL [facility] LIPID PROFILE LDL 89 mg/dL 12/22/2017 REFERENCE RANGE: Optimal: <100 mg/dL Near Optimal: 100-129 mg/dL Borderline High: 130-159 mg/dL High: 160-189 mg/dL Very High: >mi=125 mg/dL [facility] LIVER PROFILE T Protein 8.6 g/dL 6 - 8.3 12/22/2017 High [facility] LIVER PROFILE Albumin 4.3 g/dL 3.7 - 5.3 12/22/2017 [facility] LIVER PROFILE T Bilirubin 0.7 mg/dL 0.2 - 1.2 12/22/2017 [facility] LIVER PROFILE Alk Phos 68 U/L 34 - 104 12/22/2017 [facility] LIVER PROFILE AST 11 U/L 13 - 39 12/22/2017 Low [facility] LIVER PROFILE ALT 10 U/L 7 - 52 12/22/2017 [facility] LIVER PROFILE D Bilirubin 0.2 mg/dL 0 - 0.2 12/22/2017 [facility] LIVER PROFILE Lab Interpretation Abnormal 12/22/2017 [facility] THYROID PEROXIDASE (TPO) AB Thy Perox (TPO) Ab 16 Reference range: 0 to 34 Unit: IU/mL 12/22/2017 [facility] TSH TSH 0.97 uIU/mL 0.45 - 5.33 12/22/2017 [facility] VIT D, 25-HYDROXY Vit D, 25-Hydroxy 21.6 ng/mL 30 - 100 12/22/2017 Low Vitamin D deficiency has been defined by the [place] [employer] and [employer] guideline as a level of serum 25-OH Vitamin D less than 20 ng/mL. The Endocrine Society further defines Vitamin D insufficiency as a level between 21 and 29 ng/mL and sufficiency as a level between 30 and 100 ng/mL. [facility] VIT D, 25-HYDROXY Lab Interpretation Abnormal 12/22/2017 [facility] STOOL TESTS Occult Bld Stl Positive *ABN* (11/23/2012 14:28:00) Negative 11/23/2012 ABN [facility] CHEMISTRY U Preg Negative (11/23/2012 14:13:00) Negative 11/23/2012 Normal [facility] CHEMISTRY eGFR 74 mL/min/1.73m2 11/23/2012 NA 1Result Comment: The eGFR is calculated using the CKD-EPI formula. In most young, healthy individuals the eGFR will be >90 mL/min/1.73m2. The eGFR declines with age. An eGFR of 60-89 may be normal in some populations, particularly the elderly, for whom the CKD-EPI formula has not been extensively validated. Use of the eGFR is not recommended in the following populations: Individuals with unstable creatinine concentrations, including patients and those with serious co-morbid conditions. Patients with extremes in muscle mass or diet. The data above are obtained from the National Kidney Disease Education Program (NKDEP) which additionally recommends that when the eGFR is used in patients with extremes of body mass index for purposes of drug dosing, the eGFR should be multiplied by the estimated BMI. [facility] CHEMISTRY Calcium Lvl 8.8 mg/dL 8.5 - 10.5 11/23/2012 Normal [facility] CHEMISTRY Albumin Lvl 3.8 g/dL 3.5 - 5.0 11/23/2012 Normal [facility] CHEMISTRY Chloride Lvl 107 meq/L 95 - 109 11/23/2012 Normal [facility] CHEMISTRY Potassium Lvl 3.9 meq/L 3.5 - 5.1 11/23/2012 Normal [facility] CHEMISTRY Sodium Lvl 141 meq/L 135 - 145 11/23/2012 Normal [facility] CHEMISTRY Creatinine Lvl 1.0 mg/dL 0.5 - 1.4 11/23/2012 Normal [facility] CHEMISTRY BUN 20 mg/dL 7 - 22 11/23/2012 Normal [facility] CHEMISTRY Glucose Lvl 88 mg/dL 70 - 99 11/23/2012 Normal 2Interpretive Data: Adult reference range values reflect the clinical guidelines of the [place] [employer]. [facility] CHEMISTRY CO2 25 meq/L 24 - 32 11/23/2012 Normal [facility] CHEMISTRY AST 16 unit/L 0 - 37 11/23/2012 Normal [facility] CHEMISTRY Alk Phos 85 unit/L 39 - 136 11/23/2012 Normal [facility] CHEMISTRY Bili Total 0.4 mg/dL 0.2 - 1.3 11/23/2012 Normal [facility] CHEMISTRY ALT 28 unit/L 0 - 65 11/23/2012 Normal [facility] CHEMISTRY Total Protein 8.4 g/dL 6.4 - 8.4 11/23/2012 Normal [facility] CHEMISTRY B/C Ratio 20 6 - 25 11/23/2012 Normal [facility] CHEMISTRY AGAP 12.9 meq/L 10.0 - 20.0 11/23/2012 Normal [facility] CHEMISTRY A/G Ratio 0.8 0.7 - 1.6 11/23/2012 Normal [facility] CHEMISTRY Globulin 4.6 g/dL 2.0 - 4.0 11/23/2012 HI [facility] HEMATOLOGY Basophils # 0.0 K/CMM 0.0 - 0.2 11/23/2012 Normal [facility] HEMATOLOGY Eosinophils 3.0 % 0.0 - 4.0 11/23/2012 Normal [facility] HEMATOLOGY Basophils 0.3 % 0.0 - 1.0 11/23/2012 Normal [facility] HEMATOLOGY Segs-Bands # 3.2 K/CMM 1.5 - 8.1 11/23/2012 Normal [facility] HEMATOLOGY Monocytes 6.6 % 2.0 - 12.0 11/23/2012 Normal [facility] HEMATOLOGY Segs 64.1 % 45.0 - 75.0 11/23/2012 Normal [facility] HEMATOLOGY Lymphocytes 26.0 % 20.0 - 40.0 11/23/2012 Normal [facility] HEMATOLOGY Monocytes # 0.3 K/CMM 0.0 - 0.8 11/23/2012 Normal [facility] HEMATOLOGY Eosinophils # 0.1 K/CMM 0.0 - 0.5 11/23/2012 Normal [facility] HEMATOLOGY Lymphocytes # 1.3 K/CMM 1.0 - 5.5 11/23/2012 Normal [facility] HEMATOLOGY MCH 31.5 pg 27.0 - 31.0 11/23/2012 HI [facility] HEMATOLOGY MCHC 32.9 g/dL 32.0 - 36.0 11/23/2012 Normal [facility] RDW 12.7 % 11.5 - 14.5 11/23/2012 Normal [facility] HEMATOLOGY Platelet 228 K/CMM 133 - 450 11/23/2012 Normal [facility] MPV 6.2 fL 7.4 - 10.4 11/23/2012 LOW [facility] HEMATOLOGY Hct 35.9 % 36.0 - 48.0 11/23/2012 LOW [facility] Hgb 11.8 g/dL 12.0 - 16.0 11/23/2012 LOW [facility] HEMATOLOGY RBC 3.74 M/CMM 4.20 - 5.40 11/23/2012 LOW [facility] HEMATOLOGY WBC 5.1 K/CMM 3.7 - 10.4 11/23/2012 Normal [facility] HEMATOLOGY MCV 95.8 fL 81.0 - 99.0 11/23/2012 Normal [facility] HEMATOLOGY INR 0.87 0.85 - 1.17 11/23/2012 Normal 3Interpretive Data: RECOMMENDED RANGES FOR PROTIME INR: 2.0-3.0 for most medical and surgical thromboembolic states. 2.5-3.5 for artificial heart valves and recurrent embolism. INR SHOULD BE USED ONLY FOR PATIENTS ON STABLE ANTICOAGULANT THERAPY. [facility] HEMATOLOGY PTT 29.0 s 22.9 - 35.8 11/23/2012 Normal 4Interpretive Data: Heparin Therapeutic Range: 57 - 92 Seconds [facility] HEMATOLOGY PT 12.1 s 12.0 - 14.7 11/23/2012 Normal [facility]INALYSIS UA RBC null 0 - 2 11/23/2012 Normal [facility] URINALYSIS UA Nitrite Negative (11/23/2012 14:13:00) Negative 11/23/2012 Normal [facility] URINALYSIS UA Leuk Est Negative (11/23/2012 14:13:00) Negative 11/23/2012 Normal [facility] URINALYSIS UA Sq Epi Occasional /LPF *NA* (11/23/2012 14:13:00) Few 11/23/2012 NA [facility] URINALYSIS UA WBC 1 /HPF 0 - 5 11/23/2012 Normal [facility] URINALYSIS UA Blood Small *ABN* (11/23/2012 14:13:00) Negative 11/23/2012 ABN [facility] URINALYSIS UA Urobilinogen <=1.0 mg/dL
*NA*
(11/23/2012 14:13:00) <sup> </sup> 0.1 - 1.0 11/23/2012 NA [facility] URINALYSIS UA Color Ltyellow 11/23/2012 NA [facility] URINALYSIS UA Turbidity Clear (11/23/2012 14:13:00) Clear 11/23/2012 Normal [facility] URINALYSIS UA Spec Grav 1.026 <=1.030 11/23/2012 Normal [facility] URINALYSIS UA Ketones Negative mg/dL *NA* (11/23/2012 14:13:00) Negative 11/23/2012 [facility] URINALYSIS UA Glucose Negative mg/dL *NA* (11/23/2012 14:13:00) Negative 11/23/2012 [facility] URINALYSIS UA Protein Negative mg/dL (11/23/2012 14:13:00) Negative 11/23/2012 Normal [facility] URINALYSIS UA pH 5.0 5.0 - 8.0 11/23/2012 Normal [facility] URINALYSIS UA Bili Negative *NA* (11/23/2012 14:13:00) Negative 11/23/2012 NA [facility] CHEMISTRY U Preg Negative (10/11/2012 19:43:00) Negative 10/12/2012 Normal [facility] CHEMISTRY Lipase Lvl 152 unit/L 73 - 393 10/12/2012 Normal [facility] CHEMISTRY Amylase Lvl 66 unit/L 25 - 115 10/12/2012 Normal [facility] CHEMISTRY Globulin 4.7 g/dL 2.0 - 4.0 10/12/2012 HI [facility] CHEMISTRY B/C Ratio 16 6 - 25 10/12/2012 Normal [facility] CHEMISTRY A/G Ratio 0.9 0.7 - 1.6 10/12/2012 Normal [facility] CHEMISTRY AGAP 10.0 meq/L 10.0 - 20.0 10/12/2012 Normal [facility] CHEMISTRY AST 17 unit/L 0 - 37 10/12/2012 Normal [facility] CHEMISTRY Bili Total 0.3 mg/dL 0.2 - 1.3 10/12/2012 Normal [facility] CHEMISTRY Total Protein 8.7 g/dL 6.4 - 8.4 10/12/2012 HI [facility] CHEMISTRY BUN 14 mg/dL 7 - 22 10/12/2012 Normal [facility] CHEMISTRY Alk Phos 75 unit/L 39 - 136 10/12/2012 Normal [facility] CHEMISTRY ALT 26 unit/L 0 - 65 10/12/2012 Normal [facility] CHEMISTRY eGFR 84 mL/min/1.73m2 10/12/2012 NA 1Result Comment: The eGFR is calculated using the CKD-EPI formula. In most young, healthy individuals the eGFR will be >90 mL/min/1.73m2. The eGFR declines with age. An eGFR of 60-89 may be normal in some populations, particularly the elderly, for whom the CKD-EPI formula has not been extensively validated. Use of the eGFR is not recommended in the following populations: Individuals with unstable creatinine concentrations, including patients and those with serious co-morbid conditions. Patients with extremes in muscle mass or diet. The data above are obtained from the National Kidney Disease Education Program (NKDEP) which additionally recommends that when the eGFR is used in patients with extremes of body mass index for purposes of drug dosing, the eGFR should be multiplied by the estimated BMI. [facility] CHEMISTRY Calcium Lvl 8.9 mg/dL 8.5 - 10.5 10/12/2012 Normal [facility] CHEMISTRY Albumin Lvl 4.0 g/dL 3.5 - 5.0 10/12/2012 Normal [facility] CHEMISTRY CO2 29 meq/L 24 - 32 10/12/2012 Normal [facility] CHEMISTRY Potassium Lvl 4.0 meq/L 3.5 - 5.1 10/12/2012 Normal [facility] CHEMISTRY Chloride Lvl 103 meq/L 95 - 109 10/12/2012 Normal [facility] CHEMISTRY Creatinine Lvl 0.9 mg/dL 0.5 - 1.4 10/12/2012 Normal [facility] CHEMISTRY Sodium Lvl 138 meq/L 135 - 145 10/12/2012 Normal [facility] CHEMISTRY Glucose Lvl 110 mg/dL 70 - 99 10/12/2012 [place] 2Interpretive Data: Adult reference range values reflect the clinical guidelines of the [place] [employer]. [facility] HEMATOLOGY MCH 31.7 pg 27.0 - 31.0 10/12/2012 HI [facility] HEMATOLOGY MCV 94.2 fL 81.0 - 99.0 10/12/2012 Normal [facility] HEMATOLOGY WBC 6.5 K/CMM 3.7 - 10.4 10/12/2012 Normal [facility] HEMATOLOGY RBC 3.82 M/CMM 4.20 - 5.40 10/12/2012 LOW [facility] HEMATOLOGY Hgb 12.1 g/dL 12.0 - 16.0 10/12/2012 Normal [facility] HEMATOLOGY MPV 6.1 fL 7.4 - 10.4 10/12/2012 LOW [facility] HEMATOLOGY Platelet 231 K/CMM 133 - 450 10/12/2012 Normal [facility] HEMATOLOGY RDW 13.0 % 11.5 - 14.5 10/12/2012 Normal [facility] HEMATOLOGY MCHC 33.7 g/dL 32.0 - 36.0 10/12/2012 Normal [facility] HEMATOLOGY Hct 36.0 % 36.0 - 48.0 10/12/2012 Normal [facility] HEMATOLOGY Monocytes 4.3 % 2.0 - 12.0 10/12/2012 Normal [facility] HEMATOLOGY Lymphocytes 23.3 % 20.0 - 40.0 10/12/2012 Normal [facility] HEMATOLOGY Eosinophils 1.8 % 0.0 - 4.0 10/12/2012 Normal [facility] HEMATOLOGY Segs 70.5 % 45.0 - 75.0 10/12/2012 Normal [facility] HEMATOLOGY Basophils 0.1 % 0.0 - 1.0 10/12/2012 Normal [facility] HEMATOLOGY Lymphocytes # 1.5 K/CMM 1.0 - 5.5 10/12/2012 Normal [facility] HEMATOLOGY Segs-Bands # 4.6 K/CMM 1.5 - 8.1 10/12/2012 Normal [facility] HEMATOLOGY Monocytes # 0.3 K/CMM 0.0 - 0.8 10/12/2012 Normal [facility] HEMATOLOGY Eosinophils # 0.1 K/CMM 0.0 - 0.5 10/12/2012 Normal [facility] HEMATOLOGY Basophils # 0.0 K/CMM 0.0 - 0.2 10/12/2012 Normal [facility] URINALYSIS UA Urobilinogen <=1.0 mg/dL
*NA*
(10/11/2012 19:17:00) <sup> </sup> 0.1 - 1.0 10/12/2012 NA [facility] URINALYSIS UA Color Ltyellow 10/12/2012 [facility] URINALYSIS UA Sq Epi None Seen 10/12/2012 [facility] URINALYSIS UA Leuk Est Negative (10/11/2012 19:17:00) Negative 10/12/2012 Normal [facility] URINALYSIS UA WBC 2 /HPF 0 - 5 10/12/2012 Normal [facility] URINALYSIS UA Turbidity Clear (10/11/2012 19:17:00) Clear 10/12/2012 Normal [facility] URINALYSIS UA Spec Grav 1.013 <=1.030 10/12/2012 Normal [facility] URINALYSIS UA Glucose Negative mg/dL *NA* (10/11/2012 19:17:00) Negative 10/12/2012 [facility] URINALYSIS UA pH 8.0 5.0 - 8.0 10/12/2012 Normal [facility] URINALYSIS UA Protein Negative mg/dL (10/11/2012 19:17:00) Negative 10/12/2012 Normal [facility] URINALYSIS UA Ketones Negative mg/dL *NA* (10/11/2012 19:17:00) Negative 10/12/2012 [facility] URINALYSIS UA Bili Negative *NA* (10/11/2012 19:17:00) Negative 10/12/2012 [facility] URINALYSIS UA Blood Negative (10/11/2012 19:17:00) Negative 10/12/2012 Normal [facility] URINALYSIS UA Nitrite Negative (10/11/2012 19:17:00) Negative 10/12/2012 Normal [facility] Vital Signs Vital Sign Value Date Comments Source Systolic (mm Hg) 103 04/24/2018 [facility] Diastolic (mm Hg) 69 04/24/2018 [facility] Heart Rate 62 04/24/2018 [facility] Temperature Oral (F) 36.56 [place] 04/24/2018 [facility] Respitory Rate 18 04/24/2018 [facility] Height 162 cm 04/24/2018 [facility] Weight 70.489 04/24/2018 [facility] BMI Calculated 26.86 04/24/2018 [facility] Systolic (mm Hg) 105 03/26/2018 [facility] Diastolic (mm Hg) 74 03/26/2018 [facility] Heart Rate 87 03/26/2018 [facility] Temperature Oral (F) 37.39 [place] 03/26/2018 [facility] Respitory Rate 18 03/26/2018 [facility] Height 162.6 cm 03/26/2018 [facility] Weight 71.487 03/26/2018 [facility] BMI Calculated 27.05 03/26/2018 [facility] Systolic (mm Hg) 109 03/17/2018 [facility] Diastolic (mm Hg) 81 03/17/2018 [facility] Heart Rate 63 03/17/2018 [facility] Temperature Oral (F) 36.72 [place] 03/17/2018 [facility] Respitory Rate 17 03/17/2018 [facility] Height 160 cm 03/17/2018 [facility] Weight 71.215 03/17/2018 [facility] BMI Calculated 27.81 03/17/2018 [facility] Systolic (mm Hg) 104 02/10/2018 [facility] Diastolic (mm Hg) 76 02/10/2018 [facility] Heart Rate 59 02/10/2018 [facility] Temperature Oral (F) 36.83 [place] 02/10/2018 [facility] Respitory Rate 19 02/10/2018 [facility] Height 160 cm 02/10/2018 [facility] Weight 71.668 02/10/2018 [facility] BMI Calculated 27.99 02/10/2018 [facility] Systolic (mm Hg) 100 12/29/2017 [facility] Diastolic (mm Hg) 59 12/29/2017 [facility] Heart Rate 62 12/29/2017 [facility] Temperature Oral (F) 36.72 [place] 12/29/2017 [facility] Respitory Rate 18 12/29/2017 [facility] Height 160 cm 12/29/2017 [facility] Weight 71.487 12/29/2017 [facility] BMI Calculated 27.92 12/29/2017 [facility] Height 162.56 cm 11/23/2012 [facility] Weight 63.636 11/23/2012 [facility] Respitory Rate 16 10/13/2012 [facility] Respitory Rate 16 10/13/2012 [facility] Heart Rate 78 10/13/2012 [facility] Systolic (mm Hg) 93 10/13/2012 [facility] Temperature Oral (F) 98.3 F 10/13/2012 [facility] Diastolic (mm Hg) 58 10/13/2012 [facility] Diastolic (mm Hg) 60 10/13/2012 [facility] Respitory Rate 20 10/13/2012 [facility] Heart Rate 71 10/13/2012 [facility] Temperature Oral (F) 98.1 F 10/13/2012 [facility] Systolic (mm Hg) 101 10/13/2012 [facility] Systolic (mm Hg) 99 10/13/2012 [facility] Heart Rate 70 10/13/2012 [facility] Diastolic (mm Hg) 59 10/13/2012 [facility] Temperature Oral (F) 98.6 F 10/13/2012 [facility] Height 162.56 cm 10/12/2012 [facility] Weight 63.636 10/12/2012 [facility] Height 160.02 cm 10/12/2012 [facility] Weight 63.636 10/12/2012 [facility] Encounters Location Location Details Encounter Type Encounter Number Reason For Visit Attending Provider ADM Date DC Date Status Source [facility] Inpatient [id number] BILIARY COLIC SIMON LE 10/11/2012 10/13/2012 Active [facility] Emergency [id number] JASONDAIJA HELEN 11/23/2012 11/23/2012 Active [facility] [place] Office Visit [id number] Fatigue, unspecified type Malignant neoplasm of cervix, unspecified site Preventative health care Thyroid disorder Rody Hairston MD 12/18/2017 12/18/2017 [facility] [place] Lab Appointment [id number] Thyroid disorder Fatigue, unspecified type Preventative health care Rody Hairston MD 12/22/2017 12/22/2017 [facility] Visit [id number] 12/24/2017 [facility] [place] Orders Only [id number] Vitamin D deficiency Rody Hairston MD 12/24/2017 [facility] [place] Telephone [id number] Niesha Price RN 12/25/2017 [facility] ASK YOUR NURSE PROGRAM Nurse Triage [phone] Iveth Cheng RN 12/25/2017 [facility] [place] Office Visit [id number] Hospital discharge follow-up Malignant neoplasm of cervix, unspecified site Fatigue, unspecified type Abdominal pain, generalized Need for vaccination Rody Hairston MD 12/29/2017 12/29/2017 [facility] [place] Pharmacy Visit [id number] 12/30/2017 [facility] Visit [id number] 01/05/2018 [facility] PET Scan SC Ancillary Procedure [id number] Malignant neoplasm of cervix, unspecified site Fatigue, unspecified type 01/23/2018 01/23/2018 [facility] DRIP [facility]OL[address] [facility] OB [id number] Well woman exam Hx of cervical cancer Elin Jv HANKS 02/10/2018 02/10/2018 [facility] Pattern Vault Clerk Oncology [place] Telephone [id number] Alessandra Rodriguez Medical Student 03/17/2018 [facility] Pattern Vault Clerk Oncology [place] Office Visit [id number] Malignant neoplasm of cervix, unspecified site Vaginal atrophy Mary Saleh MD 03/17/2018 03/17/2018 [facility] Visit [id number] 03/18/2018 [facility] [place]- Consult [id number] Claudio Parry MD 03/20/2018 [facility] Pattern Vault Clerk Oncology [place] Orders Only [id number] Thyroid nodule Alessandra Rodriguez NP 03/26/2018 [facility] Same Day Same Day [id number] Lower abdominal pain Cierra Mcguire MD 03/26/2018 03/26/2018 [facility] Visit [id number] 03/29/2018 [facility] LABORATORY [place] Hospital Encounter [id number] Rody Hairston MD 04/10/2018 04/10/2018 [facility] Ultrasound [facility] Encounter [id number] Mary Saleh MD 04/10/2018 04/11/2018 [facility] Pattern Vault Clerk Oncology [place] Orders Only [id number] Thyroid nodule Alessandra Rodriguez NP 04/17/2018 [facility] Pattern Vault Clerk Oncology [place] Orders Only [id number] Parathyroid abnormality Betaida Umanzor CONTENT DESIGNER 04/24/2018 [facility] Pattern Vault Clerk Oncology [place] Telephone [id number] Betaida Umanzor CONTENT DESIGNER 04/24/2018 [facility] [place]- Consult [id number] Thyroid nodule Claudio Parry MD 04/24/2018 [facility] [place] Clinical Case Mgt [id number] Meenu Zaragoza RN 04/24/2018 [facility] [place] Office Visit [id number] Abdominal pain, generalized Cameron Brit DAILY 04/24/2018 04/24/2018 [facility] Procedures Procedure Code Date Perfomer Comments Source CALCIUM 29661 04/28/2018 [facility] INTACT PTH 22955 04/28/2018 [facility] U/S THYROID/NECK 84408 04/10/2018 [facility] TSH 98392 04/10/2018 [facility] FREE T4 40249 04/10/2018 [facility] TOTAL T3 29476 04/10/2018 [facility] HPV HIGH-RISK 88495 02/10/2018 [facility] CYTOLOGY 23935 02/10/2018 [facility] TUMORIMAGE PET/CT SKUL-T 19915 01/23/2018 [facility] GLUCOSE POC 53178 01/23/2018 [facility] FREE T4 63764 12/22/2017 [facility] BIOeCON VIT D, 25-HYDROXY 41519 12/22/2017 [facility] TSH 42124 12/22/2017 [facility] CBC/DIFF 63004 12/22/2017 [facility] BASIC METABOLIC PANEL 38226 12/22/2017 [facility] HEMOGLOBIN A1C 27024 12/22/2017 [facility] LIVER PROFILE 23700 12/22/2017 [facility] LIPID PROFILE 24647 12/22/2017 [facility] [place] [address] 12/22/2017 [facility] [place]YRO[place]OX[place] ([place]) [place] [address] 12/22/2017 [facility] Tubal ligation [id number] [facility]
--- OUTSIDE RECORDS SUMMARY | 2018-08-09 16:56 | XMS REPORT | CCD ---
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 Role Phone Destinee Dewitt CP Allergies, Adverse Reactions, Alerts Substance Reaction Status NKDA Active Problem List Condition Effective Dates Status Cancer Resolved Cholecystectomy Active Medications Medication Instructions Start Date End Date Status Protonix 40 mg oral 40 mg, 1 tab, PO, Daily, 30 tab, 11/23/2012 Ordered enteric coated Substitution Allowed, ECTAB tablet Pepcid 20 mg oral 20 mg, 1 tab, PO, BID, 60 tab, 11/23/2012 Ordered tablet Substitution Allowed influenza virus 0.5 mL, Route: IM, Drug Form: INJ, 10/12/2012 10/12/2012 Completed vaccine, inactivated Start date: 10/12/12 9:00:00, Stop date: 10/12/12 9:00:00 Saline Flush 0.9% 5 ml, Route: IVP, Drug Form: INJ, 11/23/2012 11/25/2012 Discontinued Dosing Weight 63.636, kg, PRN, PRN Line Flush, Start date: 11/23/12 13:42:00, Duration: 30 day, Stop date: 12/23/12 13:41:00 Immunizations Vaccine Date Status influenza virus vaccine, inactivated 10/12/2012 Auth (Verified) Vital Signs Most recent to oldest [Reference Range]: 1 Height 162.56 cm (11/23/2012 13:19:00) Weight 63.636 kg (11/23/2012 13:19:00) Results URINALYSIS Most recent to oldest [Reference Range]: 1 UA Turbidity [Clear] Clear (11/23/2012 14:13:00) UA Color Ltyellow *NA* (11/23/2012 14:13:00) UA pH [5.0-8.0] 5.0 (11/23/2012 14:13:00) UA Spec Grav [<=1.030] 1.026 (11/23/2012:13:00) UA Glucose [Negative mg/dL] Negative mg/dL *NA* (11/23/2012::00) UA Blood [Negative] Small *ABN* (11/23/2012:13:00) UA Ketones [Negative mg/dL] Negative mg/dL *NA* (11/23/2012::00) UA Protein [Negative mg/dL] Negative mg/dL (11/23/2012::00) UA Urobilinogen [0.1-1.0 mg/dL] <=1.0 mg/dL *NA* (11/23/2012:13:00) UA Bili [Negative] Negative *NA* (11/23/2012::00) UA Leuk Est [Negative] Negative (11/23/2012:13:00) UA Nitrite [Negative] Negative (11/23/2012:13:00) UA WBC [0-5 /HPF] 1 /HPF (11/23/2012:13:00) UA RBC [0-2 /HPF] <1 /HPF (11/23/2012:13:00) UA Sq Epi [Few /LPF] Occasional /LPF *NA* (11/23/2012::00) STOOL TESTS Most recent to oldest [Reference Range]: 1 Occult Bld Stl [Negative] Positive *ABN* (11/23/2012 14:28:00) CHEMISTRY Most recent to oldest [Reference Range]: 1 Sodium Lvl [135-145 mEq/L] 141 mEq/L (11/23/2012::00) Potassium Lvl [3.5-5.1 mEq/L] 3.9 mEq/L (11/23/2012:13:00) Chloride Lvl [95-109 mEq/L] 107 mEq/L (11/23/2012:13:00) CO2 [24-32 mEq/L] 25 mEq/L (11/23/2012:13:00) AGAP [10.0-20.0 mEq/L] 12.9 mEq/L (11/23/2012:13:00) Creatinine Lvl [0.5-1.4 mg/dL] 1.0 mg/dL (11/23/2012) eGFR 74 mL/min/1.73m2 1 *NA* (11/23/2012) BUN [7-22 mg/dL] 20 mg/dL (11/23/2012) B/C Ratio [6-25] 20 (11/23/2012) Glucose Lvl [70-99 mg/dL] 88 mg/dL 2 (11/23/2012) Total Protein [6.4-8.4 g/dL] 8.4 g/dL (11/23/2012) Albumin Lvl [3.5-5.0 g/dL] 3.8 g/dL (11/23/2012) Globulin [2.0-4.0 g/dL] 4.6 g/dL *HI* (11/23/2012) A/G Ratio [0.7-1.6] 0.8 (11/23/2012) Calcium Lvl [8.5-10.5 mg/dL] 8.8 mg/dL (11/23/2012) ALT [0-65 unit/L] 28 unit/L (11/23/2012) AST [0-37 unit/L] 16 unit/L (11/23/2012) Alk Phos [39-136 unit/L] 85 unit/L (11/23/2012) Bili Total [0.2-1.3 mg/dL] 0.4 mg/dL (11/23/2012) U Preg [Negative] Negative (11/23/2012) 1Result Comment: The eGFR is calculated using [...] from the National Kidney Disease Education Program ( NKDEP) which additionally recommends that when the eGFR is used in patients with extremes of body mass index for purposes of drug dosing, the eGFR should be mul tiplied by the estimated BMI. 2Interpretive Data: Adult reference range values reflect the clinical guidelines of the [place] [employer]. HEMATOLOGY Most recent to oldest [Reference Range]: 1 WBC [3.7-10.4 K/CMM] 5.1 K/CMM (11/23/2012) RBC [4.20-5.40 M/CMM] 3.74 M/CMM *LOW* (11/23/2012) Hgb [12.0-16.0 g/dL] 11.8 g/dL *LOW* (11/23/2012) Hct [36.0-48.0 %] 35.9 % *LOW* (11/23/2012) MCV [81.0-99.0 fL] 95.8 fL (11/23/2012) MCH [27.0-31.0 pg] 31.5 pg *HI* (11/23/2012) MCHC [32.0-36.0 g/dL] 32.9 g/dL (11/23/2012) RDW [11.5-14.5 %] 12.7 % (11/23/2012) Platelet [133-450 K/CMM] 228 K/CMM (11/23/2012) MPV [7.4-10.4 fL] 6.2 fL *LOW* (11/23/2012) Segs [45.0-75.0 %] 64.1 % (11/23/2012) Lymphocytes [20.0-40.0 %] 26.0 % (11/23/2012) Monocytes [2.0-12.0 %] 6.6 % (11/23/2012) Eosinophils [0.0-4.0 %] 3.0 % (11/23/2012 14:13:00) Basophils [0.0-1.0 %] 0.3 % (11/23/2012::) Segs-Bands # [1.5-8.1 K/CMM] 3.2 K/CMM (11/23/2012:13:00) Lymphocytes # [1.0-5.5 K/CMM] 1.3 K/CMM (11/23/2012:13:00) Monocytes # [0.0-0.8 K/CMM] 0.3 K/CMM (11/23/2012:13:00) Eosinophils # [0.0-0.5 K/CMM] 0.1 K/CMM (11/23/2012:13:00) Basophils # [0.0-0.2 K/CMM] 0.0 K/CMM (11/23/2012 14:13:00) PT [12.0-14.7 seconds] 12.1 seconds (11/23/2012:13:00) INR [0.85-1.17] 0.87 3 (11/23/2012::00) PTT [22.9-35.8 seconds] 29.0 seconds 4 (11/23/2012::00) 3Interpretive Data: RECOMMENDED RANGES FOR PROTIME INR: 2.0-3.0 for most medical and surgical thromboembolic states. 2.5-3.5 for artificial heart valves and recurrent embolism. INR SHOULD BE USED ONLY FOR PATIENTS ON STABLE ANTICOAGULANT THERAPY. 4Interpretive Data: Heparin Therapeutic Range: 57 - 92 Seconds
--- OUTSIDE RECORDS SUMMARY | 2018-08-09 16:56 | XMS REPORT | CCD ---
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 Role Phone Richard Farah CP Allergies, Adverse Reactions, Alerts Substance Reaction Status NKDA Active Problem List Condition Effective Dates Status Cancer Resolved Cholecystectomy Active Medications Medication Instructions Start Date End Date Status NS (Bolus) IV 1,272.72 mL, Route: IV, Dosing 10/11/2012 10/11/2012 Completed Weight 63.636, kg, ONCE, STAT, Start date: 10/11/12 21:09:00, Duration: 1 doses or times, Stop date: 10/11/12 21:09:00 acetaminophen-hydroc 2 tab, Route: PO, Drug Form: TAB, 10/12/2012 10/13/2012 Discontinued odone 325 mg-5 mg Q6H, PRN Pain Score 4-6, Start oral tablet date: 10/12/12 14:52:00, Duration: 30 day, Stop date: 11/11/12 14:51:00 morphine Sulfate 2 mg, 1 mL, Route: IVP, Drug form: 10/12/2012 10/13/2012 Discontinued INJ, Q2H, Dosing Weight 63.636, kg, PRN Pain Score 6-10, Start date: 10/12/12 2:10:00, Stop date: 11/11/12 2:09:00, Hold for respiratory rate of 8 or less Sodium Chloride 0.9% 1,000 mL, Rate: 125 ml/hr, Infuse 10/12/2012 10/12/2012 Discontinued IV 1,000 mL over: 8 hr, Route: IV, kg, Total Volume: 1,000, Start date: 10/12/12 2:10:00, Duration: 30 day, Stop date: 11/11/12 2:09:00 Saline Flush 0.9% 5 ml, Route: IVP, Drug Form: INJ, 10/12/2012 10/13/2012 Discontinued Dosing Weight 63.636, kg, PRN, PRN Line Flush, Start date: 10/12/12 2:10:00, Duration: 30 day, Stop date: 11/11/12 3:09:00 ondansetron 4 mg, 2 mL, Route: IVP, Drug form: 10/12/2012 10/13/2012 Discontinued INJ, Q4H, Dosing Weight 63.636, kg, PRN Nausea & Vomiting, Start date: 10/12/12 2:10:00, Stop date: 11/11/12 2:09:00 acetaminophen-hydroc 1 tab, Route: PO, Drug Form: TAB, 10/12/2012 10/13/2012 Discontinued odone 325 mg-5 mg Q6H, PRN Pain Score 1-3, Start oral tablet date: 10/12/12 14:52:00, Duration: 30 day, Stop date: 11/11/12 14:51:00 docusate sodium 100 100 mg, 1 cap, PO, BID, 60 cap, 10/13/2012 Ordered mg oral capsule Substitution Allowed, CAP acetaminophen-hydroc 2 tab, PO, Q6H, PRN, 30 tab, Pain 10/13/2012 Ordered odone 325 mg-5 mg Score 4-6, Substitution Allowed, oral tablet Maintenance, TAB influenza virus 0.5 mL, Route: IM, Drug Form: INJ, 10/12/2012 10/12/2012 Completed vaccine, inactivated Start date: 10/12/12 9:00:00, Stop date: 10/12/12 9:00:00 influenza virus 0.5 mL, Route: IM, Drug Form: INJ, 10/12/2012 10/12/2012 Completed vaccine, inactivated Daily, Start date: 10/12/12 9:00:00, Duration: 1 doses or times, Stop date: 10/12/12 9:00:00 Notify pharmacy Notify pharmacy when patient 10/12/2012 10/12/2012 Discontinued when patient tolerates PO, 1, Drug form: MISC, tolerates PO Route: MISC, QSHIFT, 10/12/12 16:00:00, Duration: 30 day, Stop date: 11/11/12 8:00:00 Sodium Chloride 0.9% 1,000 mL, Rate: 120 ml/hr, Infuse 10/12/2012 10/13/2012 Discontinued IV 1,000 mL over: 8.3 hr, Route: IV, kg, Total Volume: 1,000, Start date: 10/12/12 14:48:00, Duration: 30 day, Stop date: 11/11/12 14:47:00 docusate sodium 100 100 mg, 1 cap, Route: PO, Drug 10/12/2012 10/13/2012 Discontinued mg oral capsule form: CAP, BID, Start date: 10/12/12 17:00:00, Duration: 30 day, Stop date: 11/11/12 9:00:00 Lactated Ringers IV 1,000 mL, Rate: 40 ml/hr, Infuse 10/12/2012 10/12/2012 Discontinued 1,000 mL over: 25 hr, Route: IV, kg, Total Volume: 1,000, Start date: 10/12/12 11:46:00, Duration: 1 doses or times, Stop date: 10/13/12 12:45:00 influenza virus 0.5 mL, Route: IM, Drug Form: INJ, 10/13/2012 10/12/2012 Deleted vaccine, inactivated Daily, Start date: 10/13/12 9:00:00, Duration: 1 doses or times, Stop date: 10/13/12 9:00:00 Lovenox 40 mg, 0.4 mL, Route: SUB-Q, Drug 10/13/2012 10/13/2012 Discontinued form: INJ, [id number], Start date: 10/13/12 6:00:00, Duration: 30 day, Stop date: 11/11/12 6:00:00 morphine Sulfate 4 mg, 2 mL, Route: IV, Drug form: 10/12/2012 10/13/2012 Discontinued INJ, Q2H, PRN Pain Score 6-10, Start date: 10/12/12 14:55:00, Duration: 30 day, Stop date: 11/11/12 14:54:00 morphine Sulfate 3 mg, 1.5 mL, Route: IV, Drug form: 10/12/2012 10/13/2012 Discontinued INJ, Q2H, PRN Pain Score 6-10, Start date: 10/12/12 14:54:00, Duration: 30 day, Stop date: 11/11/12 14:53:00 Zofran 4 mg, Route: IVP, Drug form: INJ, 10/11/2012 10/11/2012 Completed ONCE, Dosing Weight 63.636, kg, Priority: STAT, Start date: 10/11/12 21:10:00, Stop date: 10/11/12 21:10:00 morphine Sulfate 4 mg, Route: IVP, Drug form: INJ, 10/11/2012 10/11/2012 Completed ONCE, Dosing Weight 63.636, kg, Priority: STAT, Start date: 10/11/12 21:09:00, Stop date: 10/11/12 21:09:00 Immunizations Vaccine Date Status influenza virus vaccine, inactivated 10/12/2012 Auth (Verified) Vital Signs Most recent to oldest [Reference Range]: 1 2 3 Height 162.56 cm (10/12/2012 02:46:00) 160.02 cm (10/11/2012 19:12:00) Temperature Oral [96.4-99.1 DegF] 98.3 DegF (10/13/2012 07:52:00) 98.1 DegF (10/13/2012 04:45:00) 98.6 DegF (10/13/2012 00:30:00) Systolic Blood Pressure [90-140 mmHg] 93 mmHg (10/13/2012 07:52:00) 101 mmHg (10/13/2012 04:45:00) 99 mmHg (10/13/2012 00:30:00) Diastolic Blood Pressure [60-90 mmHg] 58 mmHg *LOW* (10/13/2012 07:52:00) 60 mmHg (10/13/2012 04:45:00) 59 mmHg *LOW* (10/13/2012 00:30:00) Respiratory Rate [14-20 BRMIN] 16 BRMIN (10/13/2012 09:02:00) 16 BRMIN (10/13/2012 07:52:00) 20 BRMIN (10/13/2012 04:45:00) Peripheral Pulse Rate [60-100 bpm] 78 bpm (10/13/2012 07:52:00) 71 bpm (10/13/2012 04:45:00) 70 bpm (10/13/2012 00:30:00) Weight 63.636 kg (10/12/2012 02:46:00) 63.636 kg (10/11/2012 19:12:00) Results URINALYSIS Most recent to oldest [Reference Range]: 1 UA Turbidity [Clear] Clear (10/11/2012 19:17:00) UA Color Ltyellow *NA* (10/11/2012 19:17:00) UA pH [5.0-8.0] 8.0 (10/11/2012 19:17:00) UA Spec Grav [<=1.030] 1.013 (10/11/2012 19:17:00) UA Glucose [Negative mg/dL] Negative mg/dL *NA* (10/11/2012 19:17:00) UA Blood [Negative] Negative (10/11/2012 19:17:00) UA Ketones [Negative mg/dL] Negative mg/dL *NA* (10/11/2012 19:17:00) UA Protein [Negative mg/dL] Negative mg/dL (10/11/2012 19:17:00) UA Urobilinogen [0.1-1.0 mg/dL] <=1.0 mg/dL *NA* (10/11/2012 19:17:00) UA Bili [Negative] Negative *NA* (10/11/2012 19:17:00) UA Leuk Est [Negative] Negative (10/11/2012 19:17:00) UA Nitrite [Negative] Negative (10/11/2012 19:17:00) UA WBC [0-5 /HPF] 2 /HPF (10/11/2012 19:17:00) UA Sq Epi None Seen *NA* (10/11/2012 19:17:00) CHEMISTRY Most recent to oldest [Reference Range]: 1 Sodium Lvl [135-145 mEq/L] 138 mEq/L (10/11/2012 19:17:00) Potassium Lvl [3.5-5.1 mEq/L] 4.0 mEq/L (10/11/2012 19:17:00) Chloride Lvl [95-109 mEq/L] 103 mEq/L (10/11/2012 19:17:00) CO2 [24-32 mEq/L] 29 mEq/L (10/11/2012 19:17:00) AGAP [10.0-20.0 mEq/L] 10.0 mEq/L (10/11/2012:17:00) Creatinine Lvl [0.5-1.4 mg/dL] 0.9 mg/dL (10/11/2012:17:00) eGFR 84 mL/min/1.73m2 1 *NA* (10/11/2012:17:00) BUN [7-22 mg/dL] 14 mg/dL (10/11/2012:17:00) B/C Ratio [6-25] 16 (10/11/2012:17:00) Glucose Lvl [70-99 mg/dL] 110 mg/dL 2 *HI* (10/11/2012:17:00) Total Protein [6.4-8.4 g/dL] 8.7 g/dL *HI* (10/11/2012:17:00) Albumin Lvl [3.5-5.0 g/dL] 4.0 g/dL (10/11/2012:17:00) Globulin [2.0-4.0 g/dL] 4.7 g/dL *HI* (10/11/2012:17:00) A/G Ratio [0.7-1.6] 0.9 (10/11/2012:17:00) Calcium Lvl [8.5-10.5 mg/dL] 8.9 mg/dL (10/11/2012:17:00) ALT [0-65 unit/L] 26 unit/L (10/11/2012:17:00) AST [0-37 unit/L] 17 unit/L (10/11/2012:17:00) Alk Phos [39-136 unit/L] 75 unit/L (10/11/2012:17:00) Bili Total [0.2-1.3 mg/dL] 0.3 mg/dL (10/11/2012:17:00) Amylase Lvl [25-115 unit/L] 66 unit/L (10/11/2012 19:17:00) Lipase Lvl [73-393 unit/L] 152 unit/L (10/11/2012:17:00) U Preg [Negative] Negative (10/11/2012 19:43:00) 1Result Comment: The eGFR is calculated using [...] values reflect the clinical guidelines of the [place] [employer]. HEMATOLOGY Most recent to oldest [Reference Range]: 1 WBC [3.7-10.4 K/CMM] 6.5 K/CMM (10/11/2012 19:17:00) RBC [4.20-5.40 M/CMM] 3.82 M/CMM *LOW* (10/11/2012:17:00) Hgb [12.0-16.0 g/dL] 12.1 g/dL (10/11/2012:17:00) Hct [36.0-48.0 %] 36.0 % (10/11/2012:17:00) MCV [81.0-99.0 fL] 94.2 fL (10/11/2012:17:00) MCH [27.0-31.0 pg] 31.7 pg *HI* (10/11/2012:17:00) MCHC [32.0-36.0 g/dL] 33.7 g/dL (10/11/2012:17:00) RDW [11.5-14.5 %] 13.0 % (10/11/2012:17:00) Platelet [133-450 K/CMM] 231 K/CMM (10/11/2012 19:17:00) MPV [7.4-10.4 fL] 6.1 fL *LOW* (10/11/2012 19:17:00) Segs [45.0-75.0 %] 70.5 % (10/11/2012 19:17:00) Lymphocytes [20.0-40.0 %] 23.3 % (10/11/2012 19:17:00) Monocytes [2.0-12.0 %] 4.3 % (10/11/2012 19:17:00) Eosinophils [0.0-4.0 %] 1.8 % (10/11/2012 19:17:00) Basophils [0.0-1.0 %] 0.1 % (10/11/2012 19:17:00) Segs-Bands # [1.5-8.1 K/CMM] 4.6 K/CMM (10/11/2012 19:17:00) Lymphocytes # [1.0-5.5 K/CMM] 1.5 K/CMM (10/11/2012 19:17:00) Monocytes # [0.0-0.8 K/CMM] 0.3 K/CMM (10/11/2012 19:17:00) Eosinophils # [0.0-0.5 K/CMM] 0.1 K/CMM (10/11/2012 19:17:00) Basophils # [0.0-0.2 K/CMM] 0.0 K/CMM (10/11/2012 19:17:00) Procedures Procedures Date Related Diagnosis Tubal ligation
--- OUTSIDE RECORDS SUMMARY | 2018-08-09 16:56 | XMS REPORT | Clinical Summary ---
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 Disp. Refills Start End Date Status Date esomeprazole (NEXIUM) 40 Take 40 mg by mouth as Active mg delayed release needed. capsule omeprazole (PRILOSEC) 20 Take 1 capsule by mouth 30 capsule 0 09/07/19 Active mg delayed release daily. 15 capsuleIndications: Reflux ergocalciferol (VITAMIN Take 1 capsule by mouth 12 capsule 0 12/25/19 Active D2) 50,000 unit weekly. 18 capsuleIndications: Vitamin D deficiency ondansetron (ZOFRAN) 4 mg Take 1 tablet by mouth 20 tablet 0 12/30/19 01/06/20 tabletIndications: every 8 hours as needed 18 18 Malignant neoplasm of for up to 7 days for cervix, unspecified site, Nausea. 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 Carias 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, 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); Hx of cervical cancer 01/23/2018 Ancillary Radiology Malignant neoplasm of Procedure cervix, unspecified site; Fatigue, unspecified type 01/05/2018 Pharmacy Visit 12/30/2017 Pharmacy Visit 12/29/2017 Office Visit Family Practice Rody Hairston MD Hospital discharge follow-up (Primary Dx); Malignant neoplasm of cervix, unspecified site; Fatigue, unspecified type; Abdominal pain, generalized; Need for vaccination 12/25/2017 Telephone Niesha Price RN Can Not Get Appointment 12/25/2017 Nurse Triage Iveth Cheng RN 12/24/2017 Pharmacy Visit 12/24/2017 Orders Only Family Practice Rody Hairston MD Vitamin D deficiency (Primary Dx) 12/22/2017 Lab Appointment Lab Rody Hairston MD Thyroid disorder; Fatigue, unspecified type; Preventative health care 12/18/2017 Office Visit Family Practice Rody Hairston MD Fatigue, unspecified type (Primary Dx); Malignant neoplasm of cervix, unspecified site; Preventative health care; Thyroid disorder after 02/11/2017 Immunizations Name Dates Previously Given Next Due TDap (Tetanus Toxoid, 12/29/2017 (Deferred: Patient already had this Reduced Diphtheria Toxoid immunization - Patient to immunization record) And Acellular Pertussis, Absorbed) Family History Medical History Relation Name Comments Breast cancer Maternal Aunt Diabetes Mother Relation Name Status Comments Maternal Aunt Mother Social History Tobacco Use Types Packs/Day Years Used Date Former Smoker 0.3 5 Smokeless Tobacco: Former User Tobacco Cessation: Counseling Given: No Alcohol Use Drinks/Week oz/Week Comments No Sex Assigned at Date Recorded Not on file Last Filed Vital Signs Vital Sign Reading Time Taken Blood Pressure 104/76 02/10/2018 1:09 PM CDT Pulse 59 02/10/2018 1:09 PM CDT Temperature 36.8 C (98.3 F) 02/10/2018 1:09 PM CDT Respiratory Rate 19 02/10/2018 1:09 PM CDT Oxygen Saturation - - Inhaled Oxygen - - Concentration Weight 71.7 kg (158 lb) 02/10/2018 1:09 PM CDT Height 160 cm (5' 3") 02/10/2018 1:09 PM CDT Body Mass Index 27.99 02/10/2018 1:09 PM CDT Plan of Treatment Date Type Specialty Care Team Description 03/17/2018 Office Visit Oncology Mary Saleh MD [address] [place] [address] [address] [place] [address] [phone] Health Maintenance Due Date Last Done Comments CERVICAL CANCER SCRN (3 02/10/2021 02/10/2018 YRS) Results * HPV HIGH-RISK (02/10/2018 2:47 PM) Component Value Ref Range HPV High Risk Negative NEG Comment: The APTIMA HPV Assay is an in vitro nucleic acid amplification test for the qualitative detection of E6/E7 viral messenger RNA (mRNA) from 14 high-risk types of human papillomavirus (HPV) in cervical specimens. The high-risk HPV types detected by the assay include: 16,18,31,33,35,39,45,51,52,56,58,59,66, and 68. CoPath Spec Number [id number] Specimen Performing Laboratory MISYS * TUMORIMAGE PET/CT SKUL-T (01/23/2018 11:02 AM) Specimen Performing Laboratory SMS Impressions IMPRESSION: 1.No evidence of locally recurrent or metastatic cervical cancer. 2.Mildly hypermetabolic left thyroid nodule may be correlated with thyroid ultrasound. 3.Additional incidental findings, as above. Signed By: Josh Haywood M.D., 01/23/2018 11:14 AM Narrative EXAMINATION: PET/CT with F-18 FDG CPT code:42876 (tumor imaging, skull base to thighs with additional thin cuts of head and neck) INDICATION:Assess response to treatment for subsequent treatment strategy ADDITIONALCLINICAL HISTORY: ?37y.o.?F who has a past medical history of cervical cancer. She was recently seen in the ER at [facility] for fever and lower abdominal pain and [...] EXAMINATION: PET/CT with F-18 FDG CPT code: 27062 (tumor imaging, skull base to thighs with additional thin cuts of head and neck) INDICATION: Assess response to treatment for subsequent treatment strategy ADDITIONAL CLINICAL HISTORY: ?37y.o.?F who has a past medical history of cervical cancer. She was recently seen in the ER at [facility] for fever and lower abdominal pain and [...] By: Josh Haywood M.D., 01/23/2018 11:14 AM * GLUCOSE POC (01/23/2018 9:20 AM) Component Value Ref Range Glucose POC 108 (H) 74 - 106 mg/dL Specimen Performing Laboratory MISYS * VIT D, 25-HYDROXY (12/22/2017 10:43 AM) Component Value Ref Range Vit D, 25-Hydroxy 21.6 (L) 30 - 100 ng/mL Comment: Vitamin D deficiency has been defined by the [place] of Medicine and Endocrine Society guideline as a level of serum 25-OH Vitamin D less than 20 ng/mL. The Endocrine Society further defines Vitamin D insufficiency as a level between 21 and 29 ng/mL and sufficiency as a level between 30 and 100 ng/mL. Specimen Performing Laboratory MISYS * THYROID PEROXIDASE (TPO) AB (12/22/2017 10:43 AM) Component Value Ref Range Thy Perox (TPO) Ab 16 Reference range: 0 to 34 Unit: IU/mL Specimen Performing Laboratory MISYS * ANTITHYROGLOBULIN AB (12/22/2017 10:43 AM) Component Value Ref Range Thyroglobulin Ab <1.0 Reference range: 0.0 to 0.9 Unit: IU/mL (note) Thyroglobulin Antibody measured by [employer] Methodology Specimen Performing Laboratory MISYS * HEMOGLOBIN A1C (12/22/2017 10:43 AM) Component Value Ref Range Hemoglobin A1c 5.5 4.3 - 6.1 % Est Average Gluc 111.2 mg/dL Specimen Performing Laboratory Blood MISYS * TSH (12/22/2017 10:43 AM) Component Value Ref Range TSH 0.97 0.45 - 5.33 uIU/mL Specimen Performing Laboratory Blood MISYS * FREE T4 (12/22/2017 10:43 AM) Component Value Ref Range Free T4 0.87 0.61 - 1.12 ng/dl Comment: females: 1st Trimester-0.52-1.10 ng/dL 2nd Trimester=0.45-0.99 ng/dL 3rd Trimester=0.48-0.95 ng/dL Specimen Performing Laboratory Blood MISYS * LIVER PROFILE (12/22/2017 10:43 AM) Component Value Ref Range T Protein 8.6 (H) 6.0 - 8.3 g/dL Albumin 4.3 3.7 - 5.3 g/dL T Bilirubin 0.7 0.2 - 1.2 mg/dL Alk Phos 68 34 - 104 U/L AST 11 (L) 13 - 39 U/L ALT 10 7 - 52 U/L D Bilirubin 0.2 0.0 - 0.2 mg/dL Specimen Performing Laboratory Blood MISYS * LIPID PROFILE (12/22/2017 10:43 AM) Component Value Ref Range Cholesterol 153 mg/dL Comment: REFERENCE RANGE: Desirable: <200 mg/dL Borderline: 200-240 mg/dL High Risk: >240 mg/dL Triglyceride 52 <150 mg/dL Comment: REFERENCE RANGE: Normal: <150 mg/dL Borderline High: 150-199 mg/dL High: 200-499 mg/dL Very High: >uk=183 mg/dL HDL 54 mg/dL Comment: Increased CHD risk: <40 mg/dL Decreased CHD risk: >60 mg/dL LDL 89 mg/dL Comment: REFERENCE RANGE: Optimal: <100 mg/dL Near Optimal: 100-129 mg/dL Borderline High: 130-159 mg/dL High: 160-189 mg/dL Very High: >ki=412 mg/dL Specimen Performing Laboratory Blood MISYS * CBC/DIFF (12/22/2017 10:43 AM) Component Value Ref Range WBC 5.2 4.5 - 11.0 K/uL RBC 4.20 4.20 - 5.40 M/uL Hemoglobin 12.8 12.0 - 16.0 g/dL Hematocrit 38.8 37.0 - 47.0 % MCV 92 82 - 92 fL MCH 30.5 27.0 - 32.0 pg MCHC 33.0 32.0 - 36.0 g/dL RDW 42.4 36.4 - 46.3 fL Platelet 288 150 - 400 K/uL Mean Platelet Volume 9.5 9.4 - 12.4 fL Percent NRBC 0.0 Absolute NRBC 0.00 Neutrophil 53.1 34.0 - 70.0 % Lymphocyte 37.4 20.0 - 50.0 % Monocyte 6.6 5.0 - 12.0 % Eosinophil 2.1 0.7 - 5.0 % Basophil 0.6 0.1 - 1.2 % Pct Immat Gran 0.2 0.0 - 0.5 Neutrophil, Abs 2.74 1.56 - 6.13 K/uL Lymphocyte, Abs 1.93 1.18 - 3.74 K/uL Monocyte, Abs 0.34 0.24 - 0.36 K/uL Eosinophil, Abs 0.11 0.04 - 0.36 K/uL Basophil, Abs 0.03 0.01 - 0.08 K/uL Absol Immat Gran 0.01 0.00 - 0.03 K/uL Specimen Performing Laboratory Blood MISYS * BASIC METABOLIC PANEL (12/22/2017 10:43 AM) Component Value Ref Range CO2 27 21 - 31 mmol/L Chloride 104 98 - 107 mmol/L Potassium 3.8 3.5 - 5.1 mmol/L Sodium 141 136 - 145 mmol/L Glucose 93 70 - 110 mg/dL Urea Nitrogen 17 7 - 25 mg/dL Creatinine 0.70 0.6 - 1.2 mg/dL Anion Gap 10 Calcium 9.0 8.6 - 10.3 mg/dL GFR, Estimated >60 mL/min/1.73 m2 GFR, Estim, Afr-Am >60 mL/min/1.73 m2 Specimen Performing Laboratory Blood MISYS after 02/11/2017
--- OUTSIDE RECORDS SUMMARY | 2018-08-09 16:56 | XMS REPORT | Clinical Summary ---
Author Author [facility] Organization [facility] Address Unknown Phone Unavailable Care Team Providers Care Enterprise Application Developer Name Role Phone Rody Hairston MD PCP [...] unit weekly. 18 capsuleIndications: Vitamin D deficiency conjugated estrogens Insert 0.5 g vaginally 30 g 12 03/17/20 Active (PREMARIN) 0.625 mg/gram DAILY (21 days on & 7 18 vaginal creamIndications: days off). 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 - 12/20/11 Biopsies taken 01/15/12 and patient to be seen 01/17/12 at [facility] by and for chemoradiation- Cancer of cervix 01/15/2012 Encounters Date Type Specialty Care Team Description 03/17/2018 Office Visit Oncology Mary Saleh MD Malignant neoplasm of cervix, unspecified site (Primary Dx); Vaginal atrophy 03/17/2018 Telephone Oncology Alessandra Rodriguez, Follow-up Medical Student 02/10/2018 OB analyst programmer Elin Carias 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, RESIDENTIAL 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); Hx of cervical cancer 01/23/2018 Ancillary Radiology Malignant neoplasm of Procedure cervix, unspecified site; Fatigue, unspecified type 01/05/2018 Pharmacy Visit 12/30/2017 Pharmacy Visit 12/29/2017 Office Visit Family Practice Rody Hairston MD Hospital discharge follow-up (Primary Dx); Malignant neoplasm of cervix, unspecified site; Fatigue, unspecified type; Abdominal pain, generalized; Need for vaccination 12/25/2017 Telephone Niesha Price, RN Can Not Get Appointment 12/25/2017 Nurse [...] site; Preventative health care; Thyroid disorder after 03/17/2017 Immunizations Name Dates Previously Given Next Due [...] Vital Sign Reading Time Taken Blood Pressure 109/81 03/17/2018 12:04 PM CDT Pulse 63 03/17/2018 12:04 PM CDT Temperature 36.7 C (98.1 F) 03/17/2018 12:04 PM CDT Respiratory Rate 17 03/17/2018 12:04 PM CDT Oxygen Saturation 100% 03/17/2018 12:04 PM CDT Inhaled Oxygen - - Concentration Weight 71.2 kg (157 lb) 03/17/2018 12:04 PM CDT Height 160 cm (5' 3") 03/17/2018 12:04 PM CDT Body Mass Index 27.81 03/17/2018 12:04 PM CDT Plan of Treatment Health Maintenance Due Date Last Done Comments IMM Influenza Seasonal 05/25/2018 Oct to October (>/=19 yrs) Cervical Cancer Scrn (3 02/10/2021 02/10/2018 Yrs) Results * HPV HIGH-RISK (02/10/2018 2:47 PM) [...] [id number] Specimen Performing Laboratory MIS[facility] * [facility] CYTOLOGY (02/10/2018) Component Value Ref Range [facility] Cytology (note) Name LYNDSAY ARANA Date of 1980 Hospital Number [id number] [facility] (OP) CYTOPATHOLOGY Collected:02/10/2018 00:00 Received: 02/11/2018 10:05 FINAL DIAGNOSIS Cervicovaginal (liquid-based preparation): Satisfactory for evaluation Scant cellularity Negative for intraepithelial lesion or malignancy Reactive cellular changes associated with inflammation includes typical repair Electronically Signed Out Margaret Loera/[id number] Staff Pathologist Clinical History Date of Last [...] analyzed by the automated ThinPrep Imaging System, [employer], [place], [place]. Specimen Performing Laboratory MISYS * TUMORIMAGE PET/CT SKUL-T (01/23/2018 11:02 AM) Specimen Performing Laboratory SMS Impressions IMPRESSION: 1.No evidence of locally recurrent or metastatic cervical cancer. 2.Mildly hypermetabolic left thyroid nodule may be correlated with thyroid ultrasound. 3.Additional incidental findings, as above. Signed By: Josh Haywood M.D., 01/23/2018 11:14 AM Narrative EXAMINATION: PET/CT with F-18 FDG CPT code:74376 (tumor imaging, skull base to thighs with additional thin cuts of head and neck) INDICATION:Assess response to treatment for subsequent treatment strategy ADDITIONALCLINICAL HISTORY: ?37y.o.?F who has a past medical history of cervical cancer. She was recently seen in the ER at [facility] for fever and lower abdominal pain and [...] EXAMINATION: PET/CT with F-18 FDG CPT code: 19757 (tumor imaging, skull base to thighs with additional thin cuts of head and neck) INDICATION: Assess response to treatment for subsequent treatment strategy ADDITIONAL CLINICAL HISTORY: ?37y.o.?F who has a past medical history of cervical cancer. She was recently seen in the ER at [facility] for fever and lower abdominal pain and [...] D deficiency has been defined by the [place] of Medicine and Endocrine Society guideline as [...] Unit: IU/mL (note) Thyroglobulin Antibody measured by [facility] [place] Methodology Specimen Performing Laboratory MISYS * HEMOGLOBIN [...] 150-199 mg/dL High: 200-499 mg/dL Very High: >re=148 mg/dL HDL 54 mg/dL Comment: Increased CHD risk: <40 mg/dL Decreased CHD risk: >60 mg/dL LDL 89 mg/dL Comment: REFERENCE RANGE: Optimal: <100 mg/dL Near Optimal: 100-129 mg/dL Borderline High: 130-159 mg/dL High: 160-189 mg/dL Very High: >rd=348 mg/dL Specimen Performing Laboratory Blood MISYS * [...] m2 Specimen Performing Laboratory Blood MISYS after 03/17/2017
--- OUTSIDE RECORDS SUMMARY | 2018-08-09 16:56 | XMS REPORT | Clinical Summary ---
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 - 12/20/11 Biopsies taken 01/15/12 and patient to be seen 01/17/12 at [facility] by and for chemoradiation- Cancer of cervix 01/15/2012 Encounters Date Type Specialty Care Team Description 01/05/2018 Pharmacy Visit 12/30/2017 Pharmacy Visit 12/29/2017 [...] site; Preventative health care; Thyroid disorder after 01/22/2017 Immunizations Name Dates Previously Given Next Due [...] Date Former Smoker 0.3 5 Smokeless Tobacco: Never Used Alcohol Use Drinks/Week oz/Week Comments No Sex Assigned at Date Recorded Not on file Last Filed Vital Signs Vital Sign Reading Time Taken Blood Pressure 100/59 12/29/2017 1:01 PM CDT Pulse 62 12/29/2017 1:01 PM CDT Temperature 36.7 C (98.1 F) 12/29/2017 1:01 PM CDT Respiratory Rate 18 12/29/2017 1:01 PM CDT Oxygen Saturation - - Inhaled Oxygen - - Concentration Weight 71.5 kg (157 lb 9.6 oz) 12/29/2017 1:01 PM CDT Height 160 cm (5' 3") 12/29/2017 1:01 PM CDT Body Mass Index 27.92 12/29/2017 1:01 PM CDT Plan of Treatment Date Type Specialty Care Team Description 01/23/2018 Ancillary Radiology confirmed appt Procedure 02/10/2018 OB animal nutrition consultant Elin Carias NP [address] [place] [address] [id number] [place], [place] [id number] Health Maintenance Due Date Last Done Comments CERVICAL CANCER SCRN (3 2000 YRS) Results * VIT D, 25-HYDROXY (12/22/2017 10:43 AM) Component Value Ref Range Vit D, 25-Hydroxy 21.6 (L) 30 - 100 ng/mL Comment: Vitamin D deficiency has been defined by the [place] of Medicine and Endocrine Society guideline as [...] IU/mL (note) Thyroglobulin Antibody measured by [facility] [place] Methodology Specimen Performing Laboratory MISYS * HEMOGLOBIN [...] 150-199 mg/dL High: 200-499 mg/dL Very High: >mv=530 mg/dL HDL 54 mg/dL Comment: Increased CHD risk: <40 mg/dL Decreased CHD risk: >60 mg/dL LDL 89 mg/dL Comment: REFERENCE RANGE: Optimal: <100 mg/dL Near Optimal: 100-129 mg/dL Borderline High: 130-159 mg/dL High: 160-189 mg/dL Very High: >op=005 mg/dL Specimen Performing Laboratory Blood MISYS * [...] m2 Specimen Performing Laboratory Blood MISYS after 01/22/2017
--- OUTSIDE RECORDS SUMMARY | 2018-08-09 16:56 | XMS REPORT | Clinical Summary ---
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 - 12/20/11 Biopsies taken 01/15/12 and patient to be seen 01/17/12 at [facility] by and for chemoradiation- Cancer of cervix 01/15/2012 Encounters Date Type Specialty Care Team Description 01/23/2018 Ancillary Radiology Malignant neoplasm of Procedure [...] site; Preventative health care; Thyroid disorder after 01/29/2017 Immunizations Name Dates Previously Given Next Due [...] Treatment Date Type Specialty Care Team Description 02/10/2018 OB outside parts sales Elin Carias NP [address] [place] [address] [id number] [place] [address] Health Maintenance Due Date Last Done Comments CERVICAL CANCER SCRN (3 2000 YRS) Results * TUMORIMAGE PET/CT SKUL-T (01/23/2018 11:02 AM) Specimen Performing Laboratory SMS Impressions IMPRESSION: 1.No evidence of locally recurrent or metastatic cervical cancer. 2.Mildly hypermetabolic left thyroid nodule may be correlated with thyroid ultrasound. 3.Additional incidental findings, as above. Signed By: Josh Haywood M.D., 01/23/2018 11:14 AM Narrative EXAMINATION: PET/CT with F-18 FDG CPT code:54909 (tumor imaging, skull base to thighs with additional thin cuts of head and neck) INDICATION:Assess response to treatment for subsequent treatment strategy ADDITIONALCLINICAL HISTORY: ?37y.o.?F who has a past medical history of cervical cancer. She was recently seen in the ER at [facility] for fever and lower abdominal pain [...] EXAMINATION: PET/CT with F-18 FDG CPT code: 66746 (tumor imaging, skull base to thighs with additional thin cuts of head and neck) INDICATION: Assess response to treatment for subsequent treatment strategy ADDITIONAL CLINICAL HISTORY: ?37y.o.?F who has a past medical history of cervical cancer. She was recently seen in the ER at [facility] for fever and lower abdominal pain [...] D deficiency has been defined by the [place] of Medicine and Endocrine Society guideline as [...] IU/mL (note) Thyroglobulin Antibody measured by [facility] [place] Methodology Specimen Performing Laboratory MISYS * HEMOGLOBIN [...] 150-199 mg/dL High: 200-499 mg/dL Very High: >rw=318 mg/dL HDL 54 mg/dL Comment: Increased CHD risk: <40 mg/dL Decreased CHD risk: >60 mg/dL LDL 89 mg/dL Comment: REFERENCE RANGE: Optimal: <100 mg/dL Near Optimal: 100-129 mg/dL Borderline High: 130-159 mg/dL High: 160-189 mg/dL Very High: >cf=313 mg/dL Specimen Performing Laboratory Blood MISYS * [...] m2 Specimen Performing Laboratory Blood MISYS after 01/29/2017
--- OUTSIDE RECORDS SUMMARY | 2018-08-09 16:57 | XMS REPORT | Clinical Summary ---
Author Author [facility] Organization [facility] Address Unknown Phone Unavailable Care Team Providers Care Coin Machine Service Repairer Name Role Phone Rody Hairston MD PCP [...] (PREMARIN) 0.625 mg/gram DAILY (21 days on and 7 18 vaginal creamIndications: days off). 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 - 12/20/11 Biopsies taken 01/15/12 and patient to be seen 01/17/12 at [facility] by and for chemoradiation- Cancer of cervix 01/15/2012 Encounters Date Type Specialty Care Team Description 03/26/2018 Orders Only Oncology Alessandra Rodriguez, PATHOLOGY SECRETARY Thyroid nodule (Primary Dx) 03/20/2018 E-Consult Endocrinology Claudio Parry MD 03/18/2018 Pharmacy Visit 03/17/2018 Office Visit Oncology Mary Saleh MD Malignant neoplasm of cervix, unspecified site (Primary Dx); Vaginal atrophy 03/17/2018 Telephone Oncology Alessandra Rodriguez, Follow-up Medical Student 02/10/2018 OB community service patrol officer Elin Carias 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, PATHOLOGY SECRETARY Dx); Hx of cervical cancer 01/23/2018 Ancillary Radiology Malignant neoplasm of Procedure cervix, unspecified site; Fatigue, unspecified type 01/05/2018 Pharmacy Visit 12/30/2017 Pharmacy Visit 12/29/2017 Office Visit Family Practice Rody Hairston MD Hospital discharge follow-up (Primary Dx); Malignant neoplasm of cervix, unspecified site; Fatigue, unspecified type; Abdominal pain, generalized; Need for vaccination 12/25/2017 Telephone Niesha Price, KENDY Can Not Get Appointment 12/25/2017 Nurse Triage [...] site; Preventative health care; Thyroid disorder after 03/25/2017 Immunizations Name Dates Previously Given Next Due [...] 03/17/2018 12:04 PM CDT Plan of Treatment Date Type Specialty Care Team Description 03/26/2018 Office Visit Family Practice Severe stomach pains. 04/10/2018 Appointment Radiology Health Maintenance Due Date Last Done Comments [...] [id number] Specimen Performing Laboratory MISYS * [facility] CYTOLOGY (02/10/2018) Component Value Ref Range [facility] Cytology (note) Name LYNDSAY AARNA Date of 1980 Hospital Number [id number] Location [facility] (OP) CYTOPATHOLOGY Collected:02/10/2018 00:00 Received: 02/11/2018 10:05 FINAL DIAGNOSIS Cervicovaginal (liquid-based preparation): Satisfactory for evaluation Scant cellularity Negative for intraepithelial lesion or malignancy Reactive cellular changes associated with inflammation includes typical repair Electronically Signed Out Margaret Loera/[id number] Staff Pathologist Clinical History Date of Last [...] analyzed by the automated ThinPrep Imaging System, [employer], [place], [place]. Specimen Performing Laboratory MISYS * TUMORIMAGE PET/CT SKUL-T (01/23/2018 11:02 AM) Specimen Performing Laboratory SMS Impressions IMPRESSION: 1.No evidence of locally recurrent or metastatic cervical cancer. 2.Mildly hypermetabolic left thyroid nodule may be correlated with thyroid ultrasound. 3.Additional incidental findings, as above. Signed By: Josh Haywood M.D., 01/23/2018 11:14 AM Narrative EXAMINATION: PET/CT with F-18 FDG CPT code:90677 (tumor imaging, skull base to thighs with additional thin cuts of head and neck) INDICATION:Assess response to treatment for subsequent treatment strategy ADDITIONALCLINICAL HISTORY: ?37y.o.?F who has a past medical history of cervical cancer. She was recently seen in the ER at [facility] for fever and lower abdominal pain and [...] EXAMINATION: PET/CT with F-18 FDG CPT code: 45838 (tumor imaging, skull base to thighs with additional thin cuts of head and neck) INDICATION: Assess response to treatment for subsequent treatment strategy ADDITIONAL CLINICAL HISTORY: ?37y.o.?F who has a past medical history of cervical cancer. She was recently seen in the ER at [facility] for fever and lower abdominal pain and [...] D deficiency has been defined by the [place] of Medicine and Endocrine Society guideline as [...] IU/mL (note) Thyroglobulin Antibody measured by [facility] [place] Methodology Specimen Performing Laboratory MISYS * HEMOGLOBIN [...] 150-199 mg/dL High: 200-499 mg/dL Very High: >qt=937 mg/dL HDL 54 mg/dL Comment: Increased CHD risk: <40 mg/dL Decreased CHD risk: >60 mg/dL LDL 89 mg/dL Comment: REFERENCE RANGE: Optimal: <100 mg/dL Near Optimal: 100-129 mg/dL Borderline High: 130-159 mg/dL High: 160-189 mg/dL Very High: >tj=665 mg/dL Specimen Performing Laboratory Blood MISYS * [...] m2 Specimen Performing Laboratory Blood MISYS after 03/25/2017
--- OUTSIDE RECORDS SUMMARY | 2018-08-09 16:57 | XMS REPORT | Clinical Summary ---
Author Author [facility] Organization [facility] Address Unknown Phone Unavailable Care Team Providers Care Other Sports Official Name Role Phone Rody Hairston MD PCP [...] 18 vaginal creamIndications: days off). Vaginal atrophy ibuprofen (MOTRIN) 800 mg Take 1 tablet by mouth 30 tablet 0 03/26/20 Active tabletIndications: Lower every 8 hours as needed 18 abdominal pain for Pain Take with food. ondansetron (ZOFRAN) 4 mg Take 1 tablet by mouth 20 tablet 0 12/30/19 01/06/20 tabletIndications: every 8 hours as needed 18 18 Malignant neoplasm of for up to 7 days for cervix, unspecified site, Nausea. Abdominal pain, generalized metroNIDAZOLE (FLAGYL) Take 1 tablet by mouth 2 20 tablet 0 03/26/20 04/05/20 500 mg tabletIndications: times daily for 10 days. 18 18 Lower abdominal pain ciprofloxacin HCl (CIPRO) Take 1 tablet by mouth 2 20 tablet 0 03/26/20 04/05/20 500 mg tabletIndications: times daily for 10 days. 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 - 12/20/11 Biopsies taken 01/15/12 and patient to be seen 01/17/12 at [facility] by and for chemoradiation- Cancer of cervix 01/15/2012 Encounters Date Type Specialty Care Team Description 03/29/2018 Pharmacy Visit 03/26/2018 Same Day Family Practice Cierra Mcguire MD Lower abdominal pain (Primary Dx) 03/26/2018 Orders Only Oncology Alessandra Rodriguez MORTGAGE FIELD INSPECTOR Thyroid nodule (Primary Dx) 03/20/2018 E-Consult Endocrinology Claudio Parry MD 03/18/2018 Pharmacy Visit 03/17/2018 Office Visit Oncology Mary Saleh MD Malignant neoplasm of cervix, unspecified site (Primary Dx); Vaginal atrophy 03/17/2018 Telephone Oncology Alessandra Rodriguez, Follow-up Medical Student 02/10/2018 OB front facer Elin Carias 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, 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 FIELD 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); Hx of cervical cancer 01/23/2018 Ancillary [...] site; Preventative health care; Thyroid disorder after 04/09/2017 Immunizations Name Dates Previously Given Next Due [...] Vital Sign Reading Time Taken Blood Pressure 105/74 03/26/2018 3:44 PM CDT Pulse 87 03/26/2018 3:44 PM CDT Temperature 37.4 C (99.3 F) 03/26/2018 3:44 PM CDT Respiratory Rate 18 03/26/2018 3:44 PM CDT Oxygen Saturation 100% 03/26/2018 3:44 PM CDT Inhaled Oxygen - - Concentration Weight 71.5 kg (157 lb 9.6 oz) 03/26/2018 3:44 PM CDT Height 162.6 cm (5' 4") 03/26/2018 3:44 PM CDT Body Mass Index 27.05 03/26/2018 3:44 PM CDT Plan of Treatment Date Type Specialty Care Team Description 04/10/2018 Hospital Lab Rody Hairston MD Arrived Encounter [address] [place] [id number] [phone] 04/10/2018 Appointment Radiology 04/24/2018 Office Visit Family Practice Cameron Perea MD follow up from same day [address] [place] [address] [id number] Health Maintenance Due Date Last Done Comments [...] [id number] Specimen Performing Laboratory MISYS * [facility] CYTOLOGY (02/10/2018) Component Value Ref Range [facility] Cytology (note) Name LYNDSAY ARANA Date of 1980 Hospital Number [id number] Location [facility] (OP) CYTOPATHOLOGY Collected:02/10/2018 00:00 Received: 02/11/2018 10:05 FINAL DIAGNOSIS Cervicovaginal (liquid-based preparation): Satisfactory for evaluation Scant cellularity Negative for intraepithelial lesion or malignancy Reactive cellular changes associated with inflammation includes typical repair Electronically Signed Out Margaret Loera/[id number] Staff Pathologist Clinical History Date of Last [...] analyzed by the automated ThinPrep Imaging System, [employer] [place], [place]. Specimen Performing Laboratory MISYS * TUMORIMAGE PET/CT SKUL-T (01/23/2018 11:02 AM) Specimen Performing Laboratory SMS Impressions IMPRESSION: 1.No evidence of locally recurrent or metastatic cervical cancer. 2.Mildly hypermetabolic left thyroid nodule may be correlated with thyroid ultrasound. 3.Additional incidental findings, as above. Signed By: Josh Haywood M.D., 01/23/2018 11:14 AM Narrative EXAMINATION: PET/CT with F-18 FDG CPT code:65911 (tumor imaging, skull base to thighs with additional thin cuts of head and neck) INDICATION:Assess response to treatment for subsequent treatment strategy ADDITIONALCLINICAL HISTORY: ?37y.o.?F who has a past medical history of cervical cancer. She was recently seen in the ER at [facility] for fever and lower abdominal pain [...] EXAMINATION: PET/CT with F-18 FDG CPT code: 35232 (tumor imaging, skull base to thighs with additional thin cuts of head and neck) INDICATION: Assess response to treatment for subsequent treatment strategy ADDITIONAL CLINICAL HISTORY: ?37y.o.?F who has a past medical history of cervical cancer. She was recently seen in the ER at [facility] for fever and lower abdominal pain [...] D deficiency has been defined by the [place] of Medicine and Endocrine Society guideline as [...] IU/mL (note) Thyroglobulin Antibody measured by [facility] [place] Methodology Specimen Performing Laboratory MISYS * HEMOGLOBIN [...] 150-199 mg/dL High: 200-499 mg/dL Very High: >lc=430 mg/dL HDL 54 mg/dL Comment: Increased CHD risk: <40 mg/dL Decreased CHD risk: >60 mg/dL LDL 89 mg/dL Comment: REFERENCE RANGE: Optimal: <100 mg/dL Near Optimal: 100-129 mg/dL Borderline High: 130-159 mg/dL High: 160-189 mg/dL Very High: >rk=195 mg/dL Specimen Performing Laboratory Blood MISYS * [...] m2 Specimen Performing Laboratory Blood MISYS after 04/09/2017
--- OUTSIDE RECORDS SUMMARY | 2018-08-09 16:57 | XMS REPORT | Clinical Summary ---
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 - squamous cell carcinoma in situ cannot rule out invasion - 12/20/11 Biopsies taken 01/15/12 and patient to be seen 01/17/12 at [facility] by and for chemoradiation- Cancer of cervix 01/15/2012 Encounters Date Type Specialty Care Team Description 02/10/2018 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 [place] [address] Health Maintenance Due Date Last Done Comments [...] [id number] Specimen Performing Laboratory MISYS * [facility] CYTOLOGY (02/10/2018) Component Value Ref Range [facility] Cytology (note) Name LYNDSAY ARANA Date of 1980 Hospital Number [id number] Location [facility] (OP) CYTOPATHOLOGY Collected:02/10/2018 00:00 Received: 02/11/2018 10:05 FINAL DIAGNOSIS Cervicovaginal (liquid-based preparation): Satisfactory for evaluation Scant cellularity Negative for intraepithelial lesion or malignancy Reactive cellular changes associated with inflammation includes typical repair Electronically Signed Out Margaret Loera/[id number] Staff Pathologist Clinical History Date of Last [...] analyzed by the automated ThinPrep Imaging System, [employer], [place], [place]. Specimen Performing Laboratory MISYS * TUMORIMAGE PET/CT SKMITZI-Sandee (01/23/2018 11:02 AM) Specimen Performing Laboratory SMS Impressions IMPRESSION: 1.No evidence of locally recurrent or metastatic cervical cancer. 2.Mildly hypermetabolic left thyroid nodule may be correlated with thyroid ultrasound. 3.Additional incidental findings, as above. Signed By: Josh Haywood M.D., 01/23/2018 11:14 AM Narrative EXAMINATION: PET/CT with F-18 FDG CPT code:24935 (tumor imaging, skull base to thighs with additional thin cuts of head and neck) INDICATION:Assess response to treatment for subsequent treatment strategy ADDITIONALCLINICAL HISTORY: ?37y.o.?F who has a past medical history of cervical cancer. She was recently seen in the ER at [facility] for fever and lower abdominal pain [...] EXAMINATION: PET/CT with F-18 FDG CPT code: 96442 (tumor imaging, skull base to thighs with additional thin cuts of head and neck) INDICATION: Assess response to treatment for subsequent treatment strategy ADDITIONAL CLINICAL HISTORY: ?37y.o.?F who has a past medical history of cervical cancer. She was recently seen in the ER at [facility] for fever and lower abdominal pain [...] D deficiency has been defined by the [place] of Medicine and Endocrine Society guideline as [...] 150-199 mg/dL High: 200-499 mg/dL Very High: >pm=351 mg/dL HDL 54 mg/dL Comment: Increased CHD risk: <40 mg/dL Decreased CHD risk: >60 mg/dL LDL 89 mg/dL Comment: REFERENCE RANGE: Optimal: <100 mg/dL Near Optimal: 100-129 mg/dL Borderline High: 130-159 mg/dL High: 160-189 mg/dL Very High: >cr=947 mg/dL Specimen Performing Laboratory Blood MISYS * [...] m2 Specimen Performing Laboratory Blood MISYS after 03/16/2017
--- OUTSIDE RECORDS SUMMARY | 2018-08-09 16:57 | XMS REPORT | Clinical Summary ---
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 - 12/20/11 Biopsies taken 01/15/12 and patient to be seen 01/17/12 at [facility] by and for chemoradiation- Cancer of cervix 01/15/2012 Encounters Date Type Specialty Care Team Description 04/17/2018 Orders Only Oncology Alessandra Rodriguez NP Thyroid nodule (Primary Dx) 04/10/2018 Hospital Radiology Mary Saleh MD Encounter 04/10/2018 Hospital Lab Rody Hairston MD Encounter 03/29/2018 Pharmacy Visit 03/26/2018 Same Day Family Practice Cierra Mcguire MD Lower abdominal pain (Primary Dx) 03/26/2018 Orders Only Oncology Alessandra Rodriguez NP Thyroid nodule (Primary Dx) 03/20/2018 E-Consult Endocrinology Claudio Parry MD 03/18/2018 Pharmacy Visit 03/17/2018 Office Visit Oncology Mary Saleh MD Malignant neoplasm of cervix, unspecified site (Primary Dx); Vaginal atrophy 03/17/2018 Telephone Oncology Alessandra Rodriguez, Follow-up Medical Student 02/10/2018 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 [place], [place] [id number] Health Maintenance Due Date Last Done Comments IMM Influenza Seasonal 05/25/2018 Oct to October (>/=19 yrs) Cervical Cancer Scrn (3 02/10/2021 02/10/2018 Yrs) Procedures Procedure Name Priority Date/Time Associated Diagnosis Comments U/S THYROID/NECK Routine 04/10/2018 Malignant neoplasm of Results for this 5:43 PM CDT cervix, unspecified site procedure are in the results section. TOTAL T3 Routine 04/10/2018 Thyroid nodule Results for this 3:30 PM CDT procedure are in the results section. FREE T4 Routine 04/10/2018 Thyroid nodule Results for this 3:30 PM CDT procedure are in the results section. TSH Routine 04/10/2018 Thyroid nodule Results for this 3:30 PM CDT procedure are in the results section. HPV HIGH-RISK Routine 02/10/2018 Well woman exam Results for this 2:47 PM CDT procedure are in the results section. BTGH CYTOLOGY Routine 02/10/2018 Results for this 12:00 AM CDT procedure are in the results section. TUMORIMAGE PET/CT SKUL-T Routine 01/23/2018 Malignant neoplasm of Results for this 11:02 AM CDT cervix, unspecified site procedure are in the Fatigue, unspecified type results section. GLUCOSE POC Routine 01/23/2018 Results for this 9:20 AM CDT procedure are in the results section. THYROID PEROXIDASE (TPO) Routine 12/22/2017 Results for this AB 10:43 AM CDT procedure are in the results section. ANTITHYROGLOBULIN AB Routine 12/22/2017 Results for this 10:43 AM CDT procedure are in the results section. LIPID PROFILE Routine 12/22/2017 Preventative health care Results for this 10:43 AM CDT procedure are in the results section. LIVER PROFILE Routine 12/22/2017 Preventative health care Results for this 10:43 AM CDT procedure are in the results section. HEMOGLOBIN A1C Routine 12/22/2017 Preventative health care Results for this 10:43 AM CDT procedure are in the results section. BASIC METABOLIC PANEL Routine 12/22/2017 Fatigue, unspecified type Results for this 10:43 AM CDT procedure are in the results section. CBC/DIFF Routine 12/22/2017 Fatigue, unspecified type Results for this 10:43 AM CDT procedure are in the results section. TSH Routine 12/22/2017 Fatigue, unspecified type Results for this 10:43 AM CDT Thyroid disorder procedure are in the results section. VIT D, 25-HYDROXY Routine 12/22/2017 Fatigue, unspecified type Results for this 10:43 AM CDT procedure are in the results section. FREE T4 Routine 12/22/2017 Thyroid disorder Results for this 10:43 AM CDT procedure are in the results section. after 04/23/2017 Results * U/S THYROID/NECK (04/10/2018 5:43 PM) Addenda Addendum by Yazan Moncada MD on 04/13/2018 [...] 04/13/2018 8:42 AM Impressions Performed At IMPRESSION: [facility] *Left thyroid nodule does not meet criteria [...] PM Narrative Performed At EXAM: US THYROID [facility] DATE: 04/10/2018 5:43 PM INDICATION:incidental findings on [...] MD, 04/10/2018 6:01 PM Performing Organization Address [facility] Phone Number SMS * TSH (04/10/2018 3:30 PM) Only the most recent of 2 results within the time period is included. TSH 1.42 0.57 - 3.74 uIU/mL BT MAIN-STATION 1 Specimen Blood Performing Organization Address [facility] Phone Number MISYS BT MAIN-STATION 1 * TOTAL T3 (04/10/2018 3:30 PM) Total T3 117 87 - 178 ng/dL BT MAIN-STATION 1 Specimen Blood Performing Organization Address [facility] Phone Number MISYS BT MAIN-STATION 1 * FREE T4 (04/10/2018 3:30 PM) Only the most recent of 2 results within the time period is included. Free T4 0.90 0.61 - 1.18 ng/dl BT MAIN-STATION 1 Comment: females: 1st Trimester-0.52-1.10 ng/dL 2nd Trimester=0.45-0.99 ng/dL 3rd Trimester=0.48-0.95 ng/dL Specimen Blood Performing Organization Address [facility] Phone Number MISYS BT MAIN-STATION 1 * HPV HIGH-RISK (02/10/2018 2:47 PM) HPV High Risk Negative NEG BT DIAGNOSTIC Comment: IMMUNOLOGY The APTIMA HPV Assay is an in vitro nucleic acid amplification test for the qualitative detection of E6/E7 viral messenger RNA (mRNA) from 14 high-risk types of human papillomavirus (HPV) in cervical specimens. The high-risk HPV types detected by the assay include: 16,18,31,33,35,39,45,51,52,56, 58,59,66, and 68. CoPath Spec Number [id number] BT MOLECULAR PATHOLOGY Performing Organization Address City/State/Zipcode Phone Number MISYS DIAGNOSTIC IMMUNOLOGY MOLECULAR PATHOLOGY * [facility] CYTOLOGY (02/10/2018) [facility] Cytology (note) STEPHANIE Name LYNDSAY ARANA Date of 1980 Hospital Number [id number] Location [facility] (OP) CYTOPATHOLOGY Collected:02/10/2018 00:00 Received: 02/11/2018 10:05 FINAL DIAGNOSIS Cervicovaginal (liquid-based preparation): Satisfactory for evaluation Scant cellularity Negative for intraepithelial lesion or malignancy Reactive cellular changes associated with inflammation includes typical repair Electronically Signed Out Trell Loera/[id number] Staff Pathologist Clinical History Date of Last [...] analyzed by the automated ThinPrep Imaging System, [employer], [place], [place]. Performing Organization Address City/[facility] Phone Number MISYS * TUMORIMAGE PET/CT [facility]- (01/23/2018 11:02 AM) Impressions Performed At IMPRESSION: SMS 1.No evidence of locally recurrent or metastatic cervical cancer. 2.Mildly hypermetabolic left thyroid nodule may be correlated with thyroid ultrasound. 3.Additional incidental findings, as above. Signed By: Josh Haywood M.D., 01/23/2018 11:14 AM Narrative Performed At EXAMINATION: PET/CT with F-18 FDG [facility] CPT code:64322 (tumor imaging, skull base to thighs with additional thin cuts of head and neck) INDICATION:Assess response to treatment for subsequent treatment strategy ADDITIONALCLINICAL HISTORY: ?37y.o.?F who has a past medical history of cervical cancer. She was recently seen in the ER at [facility] for fever and lower abdominal [...] EXAMINATION: PET/CT with F-18 FDG CPT code: 64820 (tumor imaging, skull base to thighs with additional thin cuts of head and neck) INDICATION: Assess response to treatment for subsequent treatment strategy ADDITIONAL CLINICAL HISTORY: ?37y.o.?F who has a past medical history of cervical cancer. She was recently seen in the ER at [facility] for fever and lower abdominal [...] M.D., 01/23/2018 11:14 AM Performing Organization Address City/State/Zipcode Phone Number SMS * GLUCOSE POC (01/23/2018 9:20 AM) Glucose POC 108 (H) 74 - 106 mg/dL [facility] 1 Performing Organization Address City/State/[facility] Phone Number MISYS [facility] 1 * VIT D, 25-HYDROXY (12/22/2017 10:43 AM) Vit D, 25-Hydroxy 21.6 (L) 30 - 100 ng/mL BT DIAGNOSTIC Comment: IMMUNOLOGY Vitamin D deficiency has been defined by the [place] of Medicine and Endocrine Society guideline as a level of serum 25-OH Vitamin D less than 20 ng/mL. The Endocrine Society further defines Vitamin D insufficiency as a level between 21 and 29 ng/mL and sufficiency as a level between 30 and 100 ng/mL. Performing Organization Address [facility] Phone Number FAGUO BT DIAGNOSTIC IMMUNOLOGY * THYROID PEROXIDASE (TPO) AB (12/22/2017 10:43 AM) Thy Perox (TPO) Ab 16 LABORATORY Reference range: 0 to 34 CORPORATION OF Unit: IU/mL CAT[place] Performing Organization Address [facility] Phone Number [facility] CORPORATION OF [address] [phone] [place] 145 * ANTITHYROGLOBULIN AB (12/22/2017 10:43 AM) Thyroglobulin Ab <1.0 LABORATORY Reference range: 0.0 to 0.9 CORPORATION OF Unit: IU/mL [place] (note) Thyroglobulin Antibody measured by Nabil [employer]vent Methodology Performing Organization Address [facility] Phone Number [facility] OF [address] [phone] [place] 145 * HEMOGLOBIN A1C (12/22/2017 10:43 AM) Hemoglobin A1c 5.5 4.3 - 6.1 % BT DIAGNOSTIC IMMUNOLOGY Est Average Gluc 111.2 mg/dL BT DIAGNOSTIC IMMUNOLOGY Specimen Blood Performing Organization Address [facility] Phone Number FAGUO BT DIAGNOSTIC IMMUNOLOGY * LIVER PROFILE (12/22/2017 10:43 AM) T Protein 8.6 (H) 6.0 - 8.3 [...] MAIN-STATION 3 Specimen Blood Performing Organization Address [facility] Phone Number MISYS MAIN-STATION 3 * LIPID PROFILE (12/22/2017 10:43 AM) Cholesterol 153 mg/dL BT MAIN-STATION 3 Comment: REFERENCE RANGE: Desirable: <200 mg/dL Borderline: 200-240 mg/dL High Risk: >240 mg/dL Triglyceride 52 <150 mg/dL BT MAIN-STATION 3 Comment: REFERENCE RANGE: Normal: <150 mg/dL Borderline High: 150-199 mg/dL High: 200-499 mg/dL Very High: >wi=419 mg/dL HDL 54 mg/dL BT MAIN-STATION 3 Comment: Increased CHD risk: <40 mg/dL Decreased CHD risk: >60 mg/dL LDL 89 mg/dL BT MAIN-STATION 3 Comment: REFERENCE RANGE: Optimal: <100 mg/dL Near Optimal: 100-129 mg/dL Borderline High: 130-159 mg/dL High: 160-189 mg/dL Very High: >vn=853 mg/dL Specimen Blood Performing Organization Address [facility] Phone Number MISYS MAIN-STATION 3 * CBC/DIFF (12/22/2017 10:43 AM) WBC 5.2 4.5 - 11.0 K/uL BT [...] 400 K/uL BT MAIN-STATION 2 Mean Platelet Volume 9.5 9.4 - 12.4 fL BT MAIN-STATION 2 Percent NRBC 0.0 BT MAIN-STATION 2 [...] 0.08 K/uL BT MAIN-STATION 2 Absol Immat Gran 0.01 0.00 - 0.03 K/uL BT MAIN-STATION 2 Specimen Blood Performing Organization Address [facility] Phone Number MISYS BT MAIN-STATION 2 * BASIC METABOLIC PANEL (12/22/2017 10:43 AM) CO2 27 21 - 31 mmol/L BT [...] mL/min/1.73 m2 BT MAIN-STATION 3 GFR, Estim, Afr-Am >60 mL/min/1.73 m2 BT MAIN-STATION 3 Specimen Blood Performing Organization Address [facility] Phone Number MISYS BT MAIN-STATION 3 after 04/23/2017
--- OUTSIDE RECORDS SUMMARY | 2018-08-09 16:57 | XMS REPORT | Clinical Summary ---
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 [place] [id number] Health Maintenance Due Date Last Done Comments [...] procedure are in the results section. after 04/21/2017 Results * U/S THYROID/NECK (04/10/2018 5:43 PM) [...] 04/13/2018 8:42 AM Impressions Performed At IMPRESSION: [facility] *Left thyroid nodule does not meet criteria for follow-up or FNA. However, this nodule likely corresponds toFDG avid nodule seen on prior PET/CT, consider follow-up in 6-12 months to document stability. *Probable right parathyroid adenoma. Correlation with calcium and PTH levels to determine the need for scintigraphic imaging. REFERENCE: Estefanysmanuel FN, Kalani WD, Zeke EG, et al. ACR Thyroid Imaging, Reporting and Data System (TI-RADS): White Paper of the ACR TI-RADS Committee. J Am Katey Radiol. 2017; 14(5): 587?595. Signed By: Yazan Moncada MD, 04/10/2018 6:01 PM Narrative Performed At EXAM: US THYROID [facility] DATE: 04/10/2018 5:43 PM INDICATION:incidental [...] MD, 04/10/2018 6:01 PM Performing Organization Address City/[facility]/[employer] Phone Number SMS * TSH (04/10/2018 3:30 PM) Only the most recent of 2 results within the time period is included. TSH 1.42 0.57 - 3.74 uIU/mL BT MAIN-STATION 1 Specimen Blood Performing Organization Address [facility] Phone Number MISYS BT MAIN-STATION 1 * TOTAL T3 (04/10/2018 3:30 PM) Total T3 117 87 - 178 ng/dL BT MAIN-STATION 1 Specimen Blood Performing Organization Address [facility] Phone Number MISYS BT MAIN-STATION 1 * FREE T4 (04/10/2018 3:30 PM) Only the most recent of 2 results within the time period is included. Free T4 0.90 0.61 - 1.18 ng/dl BT MAIN-STATION 1 Comment: females: 1st Trimester-0.52-1.10 ng/dL 2nd Trimester=0.45-0.99 ng/dL 3rd Trimester=0.48-0.95 ng/dL Specimen Blood Performing Organization Address [facility] Phone Number MISYS BT MAIN-STATION 1 * [...] and 68. CoPath Spec Number [id number] MOLECULAR PATHOLOGY Performing Organization Address City/State/Zipcode Phone Number MISYS DIAGNOSTIC IMMUNOLOGY MOLECULAR PATHOLOGY * [facility] CYTOLOGY (02/10/2018) [facility] Cytology (note) STEPHANIE Name LYNDSAY ARANA Date of 1980 Hospital Number [id number] Location [facility] (OP) CYTOPATHOLOGY Collected:02/10/2018 00:00 Received: 02/11/2018 10:05 FINAL DIAGNOSIS Cervicovaginal (liquid-based preparation): Satisfactory for evaluation Scant cellularity Negative for intraepithelial lesion or malignancy Reactive cellular changes associated with inflammation includes typical repair Electronically Signed Out Trell Loera/[id number] Staff Pathologist Clinical History Date of Last [...] analyzed by the automated ThinPrep Imaging System, [employer], [place], [place]. Performing Organization Address City/[facility]/Zipcode Phone Number MISYS * TUMORIMAGE PET/CT [facility]- (01/23/2018 11:02 AM) Impressions Performed At IMPRESSION: SMS 1.No evidence of locally recurrent or metastatic cervical cancer. 2.Mildly hypermetabolic left thyroid nodule may be correlated with thyroid ultrasound. 3.Additional incidental findings, as above. Signed By: Josh Haywood M.D., 01/23/2018 11:14 AM Narrative Performed At EXAMINATION: PET/CT with F-18 FDG [facility] CPT code:09395 (tumor imaging, skull base to thighs with additional thin cuts of head and neck) INDICATION:Assess response to treatment for subsequent treatment strategy ADDITIONALCLINICAL HISTORY: ?37y.o.?F who has a past medical history of cervical cancer. She was recently seen in the ER at [facility] for fever and lower abdominal pain [...] EXAMINATION: PET/CT with F-18 FDG CPT code: 86384 (tumor imaging, skull base to thighs with additional thin cuts of head and neck) INDICATION: Assess response to treatment for subsequent treatment strategy ADDITIONAL CLINICAL HISTORY: ?37y.o.?F who has a past medical history of cervical cancer. She was recently seen in the ER at [facility] for fever and lower abdominal pain [...] M.D., 01/23/2018 11:14 AM Performing Organization Address City/State/[employer] Phone Number SMS * GLUCOSE POC (01/23/2018 9:20 AM) Glucose POC 108 (H) 74 - 106 mg/dL [facility] 1 Performing Organization Address City/[facility]/[employer] Phone Number MISYS [facility] 1 * VIT D, 25-HYDROXY (12/22/2017 10:43 AM) Vit D, 25-Hydroxy 21.6 (L) 30 - 100 ng/mL BT DIAGNOSTIC Comment: IMMUNOLOGY Vitamin D deficiency has been defined by the [place] of Medicine and Endocrine Society guideline as a level of serum 25-OH Vitamin D less than 20 ng/mL. The Endocrine Society further defines Vitamin D insufficiency as a level between 21 and 29 ng/mL and sufficiency as a level between 30 and 100 ng/mL. Performing Organization Address [facility] Phone Number [employer] BT DIAGNOSTIC IMMUNOLOGY * THYROID PEROXIDASE (TPO) AB (12/22/2017 10:43 AM) Thy Perox (TPO) Ab 16 LABORATORY Reference range: 0 to 34 CORPORATION OF Unit: IU/mL CATARINO Performing Organization Address [facility] Phone Number [employer] CORPORATION OF [address] [place] [address] [place] 145 * ANTITHYROGLOBULIN AB (12/22/2017 10:43 AM) Thyroglobulin Ab <1.0 LABORATORY Reference range: 0.0 to 0.9 CORPORATION OF Unit: IU/mL CAT[place] (note) Thyroglobulin Antibody measured by Nabil Clark Methodology Performing Organization Address [facility] Phone Number [employer] CORPORATION OF [address] [place] [address] [place] 145 * HEMOGLOBIN A1C (12/22/2017 10:43 AM) Hemoglobin A1c 5.5 4.3 - 6.1 % BT DIAGNOSTIC IMMUNOLOGY Est Average Gluc 111.2 mg/dL BT DIAGNOSTIC IMMUNOLOGY Specimen Blood Performing Organization Address [facility] Phone Number [employer] BT DIAGNOSTIC IMMUNOLOGY * LIVER PROFILE (12/22/2017 [...] MAIN-STATION 3 Specimen Blood Performing Organization Address [facility] Phone Number MISYS BT MAIN-STATION 3 * LIPID PROFILE (12/22/2017 10:43 AM) Cholesterol 153 mg/dL BT MAIN-STATION 3 Comment: REFERENCE RANGE: Desirable: <200 mg/dL Borderline: 200-240 mg/dL High Risk: >240 mg/dL Triglyceride 52 <150 mg/dL BT MAIN-STATION 3 Comment: REFERENCE RANGE: Normal: <150 mg/dL Borderline High: 150-199 mg/dL High: 200-499 mg/dL Very High: >tm=050 mg/dL HDL 54 mg/dL BT MAIN-STATION 3 Comment: Increased CHD risk: <40 mg/dL Decreased CHD risk: >60 mg/dL LDL 89 mg/dL BT MAIN-STATION 3 Comment: REFERENCE RANGE: Optimal: <100 mg/dL Near Optimal: 100-129 mg/dL Borderline High: 130-159 mg/dL High: 160-189 mg/dL Very High: >cl=531 mg/dL Specimen Blood Performing Organization Address [facility] Phone Number MISYS BT MAIN-STATION 3 * CBC/DIFF (12/22/2017 10:43 AM) [...] MAIN-STATION 2 Specimen Blood Performing Organization Address [facility] Phone Number MISYS BT MAIN-STATION 2 * [...] MAIN-STATION 3 Specimen Blood Performing Organization Address [facility] Phone Number MISYS BT MAIN-STATION 3 after 04/21/2017
--- OUTSIDE RECORDS SUMMARY | 2018-08-09 16:58 | XMS REPORT ---
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 Allergies, Adverse Reactions, Alerts This patient has no known allergies or adverse reactions. Medications This patient has no known medications. Encounters Start Date/Time End Date/Time Encounter Type Admission Type Attending [facility] Care Department Encounter ID 2018-10-20 00:00:00 Inpatient [facility] [id number] 2018-03-17 12:04:25 Inpatient [facility] [id number] 2018-09-21 00:00:00 2018-09-21 00:00:00 Outpatient [facility] [id number] 2018-09-16 00:00:00 2018-09-16 00:00:00 Outpatient [facility] [id number] 2018-05-21 00:00:00 2018-05-21 00:00:00 Outpatient [facility] [id number] 2018-04-29 00:00:00 2018-04-29 00:00:00 Outpatient [facility] [id number] 2018-04-28 08:59:53 2018-04-28 08:59:53 Outpatient [facility] [id number] 2018-04-24 08:44:09 2018-04-24 08:44:09 Outpatient [facility] [id number] 2018-04-24 00:00:00 2018-04-24 00:00:00 Outpatient [facility] [id number] 2018-04-17 00:00:00 2018-04-17 00:00:00 Outpatient [facility] [id number] 2018-04-10 15:36:28 2018-04-10 15:36:28 Outpatient [facility] [id number] 2018-04-10 15:31:00 2018-04-10 15:31:00 Outpatient [facility] [id number] 2018-03-26 15:38:20 2018-03-26 15:38:20 Outpatient [facility] [id number] 2018-02-10 13:09:05 2018-02-10 13:09:05 Outpatient [facility] [id number] 2018-01-23 08:53:46 2018-01-23 08:53:46 Outpatient [facility] [id number] 2018-01-13 00:00:00 2018-01-13 00:00:00 Outpatient [facility] [id number] 2017-12-29 13:00:46 2017-12-29 13:00:46 Outpatient [facility] [id number] 2017-12-26 00:00:00 2017-12-26 00:00:00 Outpatient [facility] [id number] 2017-12-26 00:00:00 2017-12-26 00:00:00 Outpatient [facility] [id number] 2017-12-25 00:00:00 2017-12-25 00:00:00 Outpatient [facility] [id number] 2017-12-22 10:43:24 2017-12-22 10:43:24 Outpatient [facility] [id number] 2017-12-18 10:01:15 2017-12-18 10:01:15 Outpatient [facility] [id number] Results Test Description Test Time Test Comments Text Results Atomic Results Result Comments CT ABDOMEN/PELVIS W [place] [address] Patient Name: RON ARANA MR #: [id number] : 1980 Age/Sex: 37/F Req #: [id number] Adm Physician: Ordered by: SAMIA STEVEN MD Report #: [id number] Location: ER Room/Bed: Procedure: [id number] CT/CT ABDOMEN/PELVIS W Exam Date: 12/25/17 Exam Time: 1420 REPORT STATUS: Signed This report includes an Addendum and supersedes previous reports for this exam. PROCEDURE: CT ABDOMEN AND PELVIS WITH CONTRAST TECHNIQUE: The abdomen and pelvis were scanned utilizing a multidetector helical scanner from the diaphragm to the lesser trochanter after the IV administration of 100 cc of Isovue 370 and the oral administration of 900 mL of Gastroview. Coronal and sagittal multiplanar reformations were obtained. COMPARISON: None. INDICATIONS: ABDOMEN PAIN FINDINGS: LOWER THORAX: Normal. HEPATOBILIARY: No focal hepatic lesions. No biliary ductal dilatation. The gallbladder is absent. SPLEEN: No splenomegaly. PANCREAS: There is fatty atrophy of the pancreatic head and uncinate process. The distal pancreatic body and tail appear unremarkable. ADRENALS: No adrenal nodules. KIDNEYS/URETERS: No hydronephrosis, stones, or solid mass lesions. PELVIC ORGANS/BLADDER: Metallic densities in the region of the cervix likely represent fiducial markers. A focal calcification in the uterine fundus may be related to small degenerating fibroid. Mild circumferential wall thickening of the bladder. PERITONEUM / RETROPERITONEUM: No free air or fluid. Mild peritoneal thickening in the low abdomen. LYMPH NODES: No lymphadenopathy. VESSELS: Unremarkable. GI TRACT: There is mild wall thickening of the distal sigmoid colon and rectum. Mild wall thickening is also seen in several loops of distal ileum. There is associated edema of the small bowel mesentery. A small amount of fluid is seen in the mesentery. There are a few scattered sigmoid diverticula. No evidence of bowel obstruction. The appendix is not clearly visualized. BONES AND SOFT TISSUES: Osteopenia in the sacral vertebral bodies is likely related to radiation change. IMPRESSION: Bowel wall thickening of the distal sigmoid colon and rectum, as well as several loops of distal ileum. There is edema within the small bowel mesentery and reactive peritoneal thickening in the low abdomen. 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 Other possibilities, such as inflammatory bowel disease or infectious enteritis, are considered less likely. Diffuse circumferential bladder wall thickening, also likely related to radiation change. Dictated by: Neno Solorzano M.D. on 12/25/2017 at 15:04 Electronically approved by: Neno Solorzano M.D. on 12/25/2017 at 15:04 ADDENDUM: The appendix is diminutive and does not appear to be the source of the inflammatory process. Dictated by: Neno Solorzano M.D. on 12/25/2017 at 15:26 Electronically approved by: Neno Solorzano M.D. on 12/25/2017 at 15:26 Dictated By: NENO SOLORZANO MD [id number] Transcribed By: ELYSIA on 12/25/17 1526 COPY TO: SAMIA STEVEN MD
--- OUTSIDE RECORDS SUMMARY | 2018-08-09 16:58 | XMS REPORT | Clinical Summary ---
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 18 18 Lower abdominal pain ibuprofen (MOTRIN) 800 mg Take 1 tablet by mouth 30 tablet 0 03/26/20 04/24/20 Discontin tabletIndications: Lower every 8 hours as needed 18 18 ued abdominal pain for Pain Take with food. 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 - squamous cell carcinoma in situ cannot rule out invasion - 12/20/11 Biopsies taken 01/15/12 and patient to be seen 01/17/12 at [facility] by and for chemoradiation- Cancer of cervix 01/15/2012 Encounters Date Type Specialty Care Team Description 04/24/2018 Office Visit Family Practice Cameron Perea MD Abdominal pain, generalized (Primary Dx) 04/24/2018 Orders Only Oncology Kay Umanzor NP Parathyroid abnormality (Primary Dx) 04/24/2018 Telephone Oncology Kay Umanzor NP Results 04/24/2018 E-Consult Endocrinology Claudio Parry MD Thyroid nodule (Primary Dx) 04/24/2018 Clinical Case Social Work Meenu Zaragoza, KENDY Mgt 04/17/2018 Orders Only Oncology Alessandra Rodriguez NP Thyroid nodule (Primary Dx) 04/10/2018 Hospital Radiology Mary Saleh MD Encounter 04/10/2018 Hospital Lab Rody Hairston MD Encounter 03/29/2018 Pharmacy Visit 03/26/2018 Same Day [facility] Cierra Mcguire MD Lower abdominal pain (Primary Dx) 03/26/2018 Orders Only Oncology Alessandra Rodriguez NP Thyroid nodule (Primary Dx) 03/20/2018 E-Consult Endocrinology Claudio Parry MD 03/18/2018 Pharmacy Visit 03/17/2018 Office Visit Oncology Mary Saleh MD Malignant neoplasm of cervix, unspecified site (Primary Dx); Vaginal atrophy 03/17/2018 Telephone Oncology Alessandra Rodriguez, Follow-up Medical Student 02/10/2018 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 Elin Carias 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, HEALTH RESEARCHER Dx); Hx of cervical cancer 01/23/2018 Ancillary [...] Preventative health care 12/18/2017 Office Visit Family Rody Pulido MD Fatigue, unspecified type (Primary Dx); Malignant neoplasm of cervix, unspecified site; Preventative health care; Thyroid disorder after 06/24/2017 Immunizations Name Dates Previously Given Next Due [...] Vital Sign Reading Time Taken Blood Pressure 103/69 04/24/2018 8:44 AM CDT Pulse 62 04/24/2018 8:44 AM CDT Temperature 36.6 C (97.8 F) 04/24/2018 8:44 AM CDT Respiratory Rate 18 04/24/2018 8:44 AM CDT Oxygen Saturation 100% 03/26/2018 3:44 PM CDT Inhaled Oxygen - - Concentration Weight 70.5 kg (155 lb 6.4 oz) 04/24/2018 8:44 AM CDT Height 162 cm (5' 3.78") 04/24/2018 8:44 AM CDT Body Mass Index 26.86 04/24/2018 8:44 AM CDT Plan of Treatment Date Type Specialty Care Team Description 09/16/2018 Office Visit Gastroenterology Ref #: [id number] 09/21/2018 Ancillary Radiology THYROID/NECK Procedure 10/20/2018 Office Visit Oncology Mary Saleh MD 6 mo fu w US results [address] [facility] [address] [place] [address] Health Maintenance Due Date Last Done Comments IMM Influenza Seasonal 05/25/2018 Oct to October (>/=19 yrs) Cervical Cancer Scrn (3 02/10/2021 02/10/2018 Yrs) Procedures Procedure Name Priority Date/Time Associated Diagnosis Comments INTACT PTH Routine 04/28/2018 Parathyroid abnormality Results for this 9:03 AM CDT procedure are in the results section. CALCIUM Routine 04/28/2018 Parathyroid abnormality Results for this 9:03 AM CDT procedure are in the results section. U/S THYROID/NECK Routine 04/10/2018 Malignant neoplasm of [...] procedure are in the results section. after 06/24/2017 Results * INTACT PTH (04/28/2018 9:03 AM) Intact PTH 56.50 8.7 - 77.1 pg/mL BT MAIN-STATION 4 Specimen Blood Performing Organization Address City/State[facility] Phone Number [facility]ISYS BT MAIN-ST[facility] 4 * CALCIUM (04/28/2018 9:03 AM) Calcium 10.1 8.6 - 10.3 mg/dL BT MAIN-STATION 1 Specimen Blood Performing Organization Address City/[facility] Phone Number MISYS BT MAIN-STATION 1 * U/S THYROID/NECK (04/10/2018 5:43 PM) Addenda [...] 04/13/2018 8:42 AM Impressions Performed At IMPRESSION: SMS *Left thyroid nodule does not meet criteria [...] MAIN-STATION 1 Specimen Blood Performing Organization Address [facility] Phone Number STEPHANIE BT MAIN-STATION 1 * TOTAL T3 (04/10/2018 3:30 PM) Total T3 117 87 - 178 ng/dL BT MAIN-STATION 1 Specimen Blood Performing Organization Address [facility] Phone Number STEPHANIE BT MAIN-STATION 1 * FREE T4 (04/10/2018 3:30 PM) Only the most recent of 2 results within the time period is included. Free T4 0.90 0.61 - 1.18 ng/dl BT MAIN-STATION 1 Comment: females: 1st Trimester-0.52-1.10 ng/dL 2nd Trimester=0.45-0.99 ng/dL 3rd Trimester=0.48-0.95 ng/dL Specimen Blood Performing Organization Address [facility] Phone Number STEPHANIE BT MAIN-STATION 1 * HPV HIGH-RISK (02/10/2018 [...] [id number] MOLECULAR PATHOLOGY Performing Organization Address [facility] Phone Number [facility]UNOLOGY MOLECULAR PATHOLOGY * [facility] CYTOLOGY (02/10/2018) [facility] Cytology (note) MISYS Name LYNDSAY ARANA Date of 1980 Hospital Number [id number] Location [facility] (OP) CYTOPATHOLOGY Collected:02/10/2018 00:00 Received: 02/11/2018 10:05 FINAL DIAGNOSIS Cervicovaginal (liquid-based preparation): Satisfactory for evaluation Scant cellularity Negative for intraepithelial lesion or malignancy Reactive cellular changes associated with inflammation includes typical repair Electronically Signed Out Trell Loera/[id number] Staff Pathologist Clinical History Date of Last [...] analyzed by the automated ThinPrep Imaging System, [employer], [place], [place]. Performing Organization Address City/State/Zipcode Phone Number MISYS * TUMORIMAGE PET/CT SK- (01/23/2018 11:02 AM) Impressions Performed At IMPRESSION: SMS 1.No evidence of locally recurrent or metastatic cervical cancer. 2.Mildly hypermetabolic left thyroid nodule may be correlated with thyroid ultrasound. 3.Additional incidental findings, as above. Signed By: Josh Haywood M.D., 01/23/2018 11:14 AM Narrative Performed At EXAMINATION: PET/CT with F-18 FDG [facility] CPT code:31354 (tumor imaging, skull base to thighs with additional thin cuts of head and neck) INDICATION:Assess response to treatment for subsequent treatment strategy ADDITIONALCLINICAL HISTORY: ?37y.o.?F who has a past medical history of cervical cancer. She was recently seen in the ER at [facility] for fever and lower abdominal [...] EXAMINATION: PET/CT with F-18 FDG CPT code: 86216 (tumor imaging, skull base to thighs with additional thin cuts of head and neck) INDICATION: Assess response to treatment for subsequent treatment strategy ADDITIONAL CLINICAL HISTORY: ?37y.o.?F who has a past medical history of cervical cancer. She was recently seen in the ER at [facility] for fever and lower abdominal [...] M.D., 01/23/2018 11:14 AM Performing Organization Address City/[facility] Phone Number SMS * GLUCOSE POC (01/23/2018 9:20 AM) Glucose POC 108 (H) 74 - 106 mg/dL [facility] 1 Performing Organization Address [facility] Phone Number [place] [facility] 1 * VIT D, 25-HYDROXY (12/22/2017 10:43 AM) Vit D, 25-Hydroxy 21.6 (L) 30 - 100 ng/mL BT DIAGNOSTIC Comment: IMMUNOLOGY Vitamin D deficiency has been defined by the [place] of Medicine and Endocrine Society guideline as a level of serum 25-OH Vitamin D less than 20 ng/mL. The Endocrine Society further defines Vitamin D insufficiency as a level between 21 and 29 ng/mL and sufficiency as a level between 30 and 100 ng/mL. Performing Organization Address City/State/[facility] Phone Number [place] BT DIAGNOSTIC IMMUNOLOGY * THYROID PEROXIDASE (TPO) AB (12/22/2017 10:43 AM) Thy Perox (TPO) Ab 16 LABORATORY Reference range: 0 to 34 [facility]POR[facility] OF Unit: IU/mL [place] Performing Organization Address City/State/Zipcode Phone Number [place] [facility] [address] [place] [address] [facility] 145 * ANTITHYROGLOBULIN AB (12/22/2017 10:43 AM) Thyroglobulin Ab <1.0 LABORATORY Reference range: 0.0 to 0.9 [facility]PORATION OF Unit: IU/mL [place] (note) Thyroglobulin Antibody measured by Nabil Juan [facility] Methodology Performing Organization Address City/[facility] Phone Number STEPHANIE [facility] [address] [facility], [place] [address] [place] 145 * HEMOGLOBIN A1C (12/22/2017 10:43 AM) Hemoglobin A1c 5.5 4.3 - 6.1 % BT DIAGNOSTIC IMMUNOLOGY Est Average Gluc 111.2 mg/dL BT DIAGNOSTIC IMMUNOLOGY Specimen Blood Performing Organization Address [facility] Phone Number [email or web address] BT DIAGNOSTIC IMMUNOLOGY * LIVER PROFILE (12/22/2017 [...] MAIN-STATION 3 Specimen Blood Performing Organization Address [facility] Phone Number MISYS BT MAIN-STATION 3 * LIPID PROFILE (12/22/2017 10:43 AM) Cholesterol 153 mg/dL BT MAIN-STATION 3 Comment: REFERENCE RANGE: Desirable: <200 mg/dL Borderline: 200-240 mg/dL High Risk: >240 mg/dL Triglyceride 52 <150 mg/dL BT MAIN-STATION 3 Comment: REFERENCE RANGE: Normal: <150 mg/dL Borderline High: 150-199 mg/dL High: 200-499 mg/dL Very High: >le=711 mg/dL HDL 54 mg/dL BT MAIN-STATION 3 Comment: Increased CHD risk: <40 mg/dL Decreased CHD risk: >60 mg/dL LDL 89 mg/dL BT MAIN-STATION 3 Comment: REFERENCE RANGE: Optimal: <100 mg/dL Near Optimal: 100-129 mg/dL Borderline High: 130-159 mg/dL High: 160-189 mg/dL Very High: >bi=903 mg/dL Specimen Blood Performing Organization Address City/State/Zipcode [...] MAIN-STATION 2 Specimen Blood Performing Organization Address [facility] Phone Number MISYS BT MAIN-STATION 2 * [...] MAIN-STATION 3 Specimen Blood Performing Organization Address [facility] Phone Number MISYS BT MAIN-STATION 3 after 06/24/2017
== END | disposition left against medical advice (07) ==
LOC: ER 16:53
DX: R10.9 Unspecified abdominal pain (principal)